=== PATIENT | male | born 1950 | race Caucasian/White ===

== ENCOUNTER 2016-11-15 04:51 | Observation (INO) ==
[2016-11-15] MEDS ORDERED: 0.9 % SODIUM CHLORIDE 1,000 ML IV ONE (05:02)
[2016-11-15] MEDS ORDERED: ONDANSETRON 4 MG/2 ML VIAL IV ONE ×2 (05:02→05:51)
[2016-11-15] MEDS ORDERED: ONDANSETRON 4 MG/2 ML VIAL ONE (05:10)
[2016-11-15] MEDS ORDERED: IPRATROPIUM/ALBUTEROL 3 ML AMPUL.NEB NEB ONE (05:13)
[2016-11-15] MEDS ORDERED: LACTATED RINGERS 1,000 ML IV ONE (05:13)
[2016-11-15] MEDS ORDERED: methylPREDNISolone SOD SUCC 125 MG/2 ML VIAL IV ONE (05:13)
[2016-11-15] MEDS ORDERED: IBUPROFEN 600 MG TABLET PO ONE (05:16)
[2016-11-15] MEDS ORDERED: ACETAMINOPHEN W/CODEINE #3 1 TABLET PO ONE (05:17)
--- NOTE | 2016-11-15 05:19 | Emergency Department Note ---
General Adult HPI - General Chief complaint: Nausea/Vomiting/Diarrhea Stated complaint: Nausea, vomiting, weakness. Time Seen by Provider: 11/15/16 05:12 Source: patient Mode of arrival: wheelchair Limitations: no limitations - History of Present Illness HPI Narrative: Has had a cough for last 4 days. Does have a history of COPD, quit smoking in 2005. Last time he was seen here for similar symptoms. He had pneumonia and ended up needing to be in the hospital. Low-grade fevers last couple days, he has not felt well, generalized body aches associated with some nausea and vomiting, which is mainly triggered by coughing up. Chest feels a little bit tight. He denies any cardiac history. No abdominal pain, recent cholecystectomy several months ago. - Related Data Home Medications Medication Instructions Recorded Confirmed cyanocobalamin (vit B-12) 1,000 1,000 mcg PO QDAY tab 04/16/15 06/24/16 mcg tablet morphine ER 100 mg tablet,extended 100 mg PO BID tab 04/16/15 06/24/16 release oxybutynin chloride ER 15 mg 15 mg PO QDAY tab 04/16/15 06/24/16 tablet,extended release 24 hr saw palm 160 mg-vit E 100 1 tab PO .QD tab 04/16/15 06/24/16 unit-selen 100 bgx-lckq-arlmkw-pygeum tablet gabapentin 300 mg capsule 300 mg PO TID cap 05/10/15 06/24/16 Aspirin 81 mg CHEWED DAILY 01/02/16 06/24/16 Cholecalciferol (Vitamin D3) 2,000 unit PO DAILY 01/02/16 06/24/16 [Vitamin D3] Multivit with Calcium,Iron,Min 1 each PO DAILY 01/02/16 06/24/16 [Maximum Daily Multivitamin] Pioglitazone [Actos] 30 mg PO DAILY 01/02/16 06/24/16 Repaglinide [Prandin] 4 mg PO TIDAC 01/02/16 06/24/16 Spironolactone [Aldactone] 25 mg PO DAILY 01/02/16 06/24/16 Ubidecarenone [Coenzyme Q10] 300 mg PO DAILY 01/02/16 06/24/16 Vits A,C,E/Lutein/Minerals 1 each PO BID 01/02/16 06/24/16 [Healthy Eyes Caplet] insulin glargine 100 unit/mL 32 unit SUB-Q QHS ml 01/23/16 06/24/16 subcutaneous solution Previous Rx's Medication Instructions Recorded tiotropium bromide 18 mcg capsule 1 inh INHALATION QDAY #90 puff 09/10/15 with inhalation device bupropion HCl SR 200 mg 200 mg PO BID 90 Days 10/29/15 tablet,sustained-release Tamsulosin [Flomax] 0.4 mg PO QDAY cap 01/02/16 morphine [Ms Contin] 30 mg PO BID tab.sr.12h 01/02/16 carvedilol 12.5 mg tablet 12.5 mg PO BID 90 Days 01/30/16 ranitidine 300 mg capsule 300 mg PO QHS #90 cap 03/20/16 citalopram 40 mg tablet 40 mg PO QDAY 90 Days 04/23/16 omeprazole 40 mg capsule,delayed 40 mg PO QDAY 90 Days 04/23/16 release atorvastatin 40 mg tablet 40 mg PO QHS 90 Days 05/28/16 ondansetron 4 mg disintegrating 4 mg PO Q8H PRN #60 tab 05/29/16 tablet polyethylene glycol 3350 17 gram 17 g PO BID PRN 10 Days 05/29/16 oral powder packet lisinopril 20 1 tab PO QDAY 90 Days 06/12/16 mg-hydrochlorothiazide 25 mg tablet albuterol sulfate HFA 90 2 puff INHALATION Q4-6HP PRN #1 06/24/16 mcg/actuation aerosol inhaler inhaler budesonide-formoterol HFA 80 2 inh INHALATION BID #10.2 g 06/24/16 mcg-4.5 mcg/actuation aerosol inhaler metformin 1,000 mg tablet 1,000 mg PO BID 90 Days 07/01/16 alcohol swabs See Dose Instructions .ROUTE 08/27/16 .MEDSUPPLY #300 pad blood sugar diagnostic strips See Dose Instructions .ROUTE 08/27/16 .MEDSUPPLY #300 each blood-glucose meter See Dose Instructions .ROUTE 08/27/16 .MEDSUPPLY #1 each lancets See Dose Instructions .ROUTE 08/27/16 .MEDSUPPLY #300 each Allergies Allergy/AdvReac Type Severity Reaction Status Date / Time No Known Drug Allergies Allergy Verified 06/24/16 07:19 Review of Systems All systems ED: reviewed and negative except as stated. Respiratory: Reports: cough, dyspnea Past Medical History - Past Medical History Source: nursing notes reviewed Medical history: Reports: COPD, diabetes, GERD, hyperlipidemia, hypertension, other (hemoptysis. Orthostatic hypotension. Cholecystitis. Urinary retention. Aspiration pneumonia. Crush injury of pelvis. Testosterone deficiency. Small bowel obstruction. Sleep apnea. Schatzki's ring. Neuropathy. Interstitial cystitis. Massive adrenal gland.) Surgical history ED: Reports: cholecystectomy, orthopedic, other Psychiatric history: Reports: anxiety, depression - Social History smoking status: Former smoker Alcohol use: Reports: None Drug use: Reports: none Physical Exam - General Limitations: no limitations General appearance: alert, in distress - Head Head exam: atraumatic, normocephalic, normal inspection - Eye Eye exam: Present: normal appearance, PERRL. Absent: conjunctival injection - ENT ENT exam: normal exam, normal oropharynx - Neck Neck exam: Present: normal inspection, full ROM - Chest Chest inspection: Present: normal inspection, symmetric chest wall rise - Respiratory Respiratory exam: Present: respiratory distress, wheezes, accessory muscle use - Cardiovascular Cardiovascular exam: Present: regular rate, normal rhythm - Abdominal Exam Abdominal exam: Present: soft, normal bowel sounds. Absent: distention, guarding - Extremities Exam Extremities exam: Present: normal inspection, full ROM - Back Exam Back exam: Present: normal inspection. Absent: CVA tenderness (R), CVA tenderness (L) - Neurological Exam Neurological exam: Present: alert, oriented X3, CN II-XII intact - Psychiatric Psychiatric exam: Present: normal affect - Skin Skin exam: Present: warm, dry, intact Course Vital Signs Temperature 99.7 F H 11/15/16 04:52 Pulse Rate 88 11/15/16 04:52 Respiratory Rate 22 11/15/16 04:52 Pulse Oximetry (%) 99 11/15/16 04:52 Temperature 99.7 F H 11/15/16 04:52 Pulse Rate 81 11/15/16 06:45 Respiratory Rate 19 11/15/16 06:04 Blood Pressure 112/60 11/15/16 06:45 Pulse Oximetry (%) 92 11/15/16 06:45 Medical Decision Making - MDM Narrative Medical decision making narrative: Patient does have COPD, in reviewing chest x-rays. They never completely cleared up. In the last year, it does look like pneumonia on the right side, also scar tissue, he may be working on lung cancer. At this point, he will be admitted for COPD exacerbation. Discussed with Dr. Eden - Medical Records Medical records reviewed: Yes I reviewed the patient's medical records. - Lab Data Lab results reviewed: Yes I reviewed the patient's lab results. Result diagrams: 11/15/16 05:22 11/15/16 05:23 Lab Results 11/15/16 11/15/16 Range/Units 05:22 05:23 WBC 10.2 (4.5-11.0) K/mcL RBC 4.85 (4.50-5.90) M/mcL Hgb 13.5 (13.5-16.5) g/dL Hct 41.7 (41.0-55.0) % MCV 85.8 (80.0-100.0) fL MCH 27.8 (26.0-34.0) pg MCHC 32.4 (31.0-36.0) g/dL RDW 14.9 H (11.5-14.5) % Plt Count 259 (140-440) K/mcL MPV 8.2 (7.4-10.4) fL Total Counted 100 Seg Neutrophils % 79 H (38-78) % Band Neutrophils % Not Reportable Lymphocytes % 11 L (15-49) % Monocytes % (Manual) 10 H (1-9) % WBC Morphology Abnorm A (NORMAL) Vacuolated Neuts 1+ A (NONE SEEN) Smudge Cells Few A (NONE SEEN) Platelet Estimate Normal (NORMAL) RBC Morphology Normal (NORMAL) Sodium 137 (133-145) mmol/L Potassium 3.8 (3.3-5.1) mmol/L Chloride 96 (96-108) mmol/L Carbon Dioxide 25 (22-30) mmol/L Anion Gap 16.0 (8-16) BUN 17 (8-23) mg/dl Creatinine 1.0 (0.7-1.2) mg/dl GFR Calculation 79 Glucose 172 H (70-105) mg/dL Calcium 10.2 (8.6-10.4) mg/dl Total Bilirubin 0.4 (0.0-1.0) mg/dL AST 15 (0-37) U/l ALT 16 (0-40) U/l Alkaline Phosphatase 106 (39-117) U/L C-Reactive Protein 0.4 (0.0-0.8) mg/dl Total Protein 7.9 (5.9-8.4) gm/dL Albumin 4.4 (3.2-5.2) gm/dL Globulin 3.5 (2.2-3.7) gm/dL Albumin/Globulin Ratio 1.3 (1.0-2.3) Disposition Clinical Impression: COPD exacerbation Referrals: Cesar Llanos DO [Primary Care Provider] -
[2016-11-15 06:17] LABS: Mean Cell Volume 85.8 fL (80.0-100.0); Mean Corpuscular HGB Conc 32.4 g/dL (31.0-36.0); Mean Corpuscular Hemoglobin 27.8 pg (26.0-34.0); Platelet Count 259 K/mcL (140-440); RBC 4.85 M/mcL (4.50-5.90); Red Cell Distribution Width 14.9 % (11.5-14.5)
[2016-11-15 06:33] LABS: ALT/SGPT 16 U/l (0-40); Albumin 4.4 gm/dL (3.2-5.2); Albumin/Globulin Ratio 1.3 (1.0-2.3); Alkaline Phosphatase 106 U/L (39-117); Blood Urea Nitrogen 17 mg/dl (8-23); C-Reactive Protein 0.4 mg/dl (0.0-0.8)
[2016-11-15 06:46] LABS: Lymphocytes % 11 % (15-49); Monocytes % (Manual) 10 % (1-9); Platelet Estimate NORMAL (NORMAL); RBC Morphology NORMAL (NORMAL); Segmented Neutrophils % 79 % (38-78); Smudge Cells FEW (NONE SEEN)
[2016-11-15] MEDS ORDERED: cefTRIAXone 1 GM in DEXTROSE 5% IN WATER 50 ML IV ONE (06:57)
[2016-11-15] MEDS ORDERED: AZITHROMYCIN 500 MG in DEXTROSE 5% IN WATER 250 ML IV SCH (07:00)
--- NOTE | 2016-11-15 07:40 | XRay Report ---
CLINICAL INFORMATION: Dyspnea - follow-up right lung infiltrate COMPARISON: 09/10/2016. FINDINGS: Heart is mildly enlarged, but unchanged. Mediastinum and pulmonary vessels are normal. Diffuse right lung infiltrate shows moderate improved aeration compared to the study five days ago. There are still patchy alveolar interstitial residual disease throughout the lung. No effusion. Left lung is well expanded and clear. Mild old compression fractures mid thoracic spine seen - as before IMPRESSION: Moderate improved aeration in diffuse right lung infiltrate since the study five days ago Interpreted and Authenticated by: Jeremi Alonzo 11/15/16
--- NOTE | 2016-11-15 08:55 | Internal Med History&Physical ---
Medical - H&P: HPI Patient information: Note initiated : 11/15/16 at 8:52 am Service Date, if different from initiated Date: [] Patient: Luis De Leon 65 y/o M admitted on for Nausea, vomiting, weakness.. Chief Complaint: [] History of present illness: Mr. De Leon is a 65 year old male who is well known to me in the past, presented to the ER today with complaints not feeling well over the last 4-5 days The patient has been having nausea associated with vomiting over the last few days. He has been feeling sick to his stomach and has reflux like symptoms. His nausea and vomiting subsided, but since yesterday he was having some shortness of breath and cough, In the past the patient has had Pneumonia quite quickly and since he was not feeling well his decided to bring him to the ER. As per the ER physician the patient was hypoxic on presentation, and was wheezing on presentation. His X ray suggestive of right pna, he was placed on IV ABX, IV fljids, Blood cultures / sputum cultures ordered and patient presented to the hospitalist for admission. - Constitutional Constitutional: Present: weakness. Absent: chills, fever(s) - EENT Eyes: Absent: blurry vision, change in vision Nose, mouth and throat: Absent: abnormal hearing, headache(s) - Cardiovascular Cardiovascular: Absent: chest pain, chest pain at rest, palpatations - Respiratory Respiratory: Present: cough, dyspnea on exertion, wheezing. Absent: excessive phlegm production - Gastrointestinal Gastrointestinal: Present: belching, dyspepsia, nausea, vomiting. Absent: abdominal pain - Genitourinary Genitourinary: Absent: nocturia, urinary frequency, urinary hesitancy - Musculoskeletal Musculoskeletal: Present: arthralgias, back pain - Integumentary Integumentary: Absent: wounds, jaundice - Neurological Neurological: Present: weakness. Absent: focal weakness, syncope, vertigo - Psychiatric Psychiatric: Absent: behavioral changes, confusion - Endocrine Endocrine: Absent: polydipsia, polyphagia, polyuria - Hematologic/Lymphatic Hematologic/Lymphatic: Absent: easy bleeding, easy bruising - Allergic/Immunologic Allergic/Immunologic: Absent: uticaria, wheezing Medical - H&P: PMH Medical history: Medical History COPD exacerbation (Acute) Laceration (Acute) Parotid gland pain (Acute) Pneumonia (Acute) Abnormal chest xray (Chronic) Acute bronchitis (Chronic) Acute cholecystitis with chronic cholecystitis (Chronic) Anemia (Chronic) Anxiety (Chronic) Aspiration pneumonia due to food (regurgitated) (Chronic) Bronchitis (Chronic) COPD (chronic obstructive pulmonary disease) (Chronic) COPD exacerbation (Chronic) COPD with exacerbation (Chronic) Cholecystitis (Chronic) Chronic back pain (Chronic) Chronic pain due to trauma (Chronic) Cough (Chronic) Crushing injury of pelvis (Chronic) Degenerative joint disease (Chronic) Depressive disorder (Chronic) Diabetes mellitus (Chronic) Dizziness (Chronic) Esophageal reflux (Chronic) Fatigue (Chronic) Gallstones and inflammation of gallbladder without obstruction (Chronic) Hemoptysis (Chronic) Hyperlipidemia (Chronic) Hypertension, essential (Chronic) Impetigo (Chronic) Interstitial cystitis (Chronic) Left pulmonary infiltrate on CXR (Chronic) Mass of adrenal gland (Chronic) Nausea and vomiting (Chronic) Neuropathy (Chronic) Orthostatic hypotension (Chronic) Overweight (Chronic) Painful respiration (Chronic) Post-op pain (Chronic) Postural lightheadedness (Chronic) Pulmonary infiltrate (Chronic) Radicular pain of sacrum (Chronic) Rhinitis (Chronic) Right pulmonary infiltrate on CXR (Chronic) Right upper quadrant abdominal pain (Chronic) Schatzki's ring (Chronic) Sexual dysfunction (Chronic) Sleep apnea (Chronic) Spondylolysis of lumbar region (Chronic) Testicular pain (Chronic) Testosterone deficiency (Chronic) Uncontrolled diabetes mellitus (Chronic) Upper respiratory infection (Chronic) Urinary frequency (Chronic) Urinary incontinence (Chronic) Urinary retention with incomplete bladder emptying (Chronic) Urinary retention with incomplete bladder emptying (Chronic) Wrist pain (Chronic) Abdominal pain (Resolved) History of pneumonia (Resolved) Leukocytosis (Resolved) Small bowel obstruction (Resolved) Surgical history: Past Surgical History Esophageal dilatation (Chronic) History of colonoscopy (Chronic) History of esophagogastroduodenoscopy (Chronic) S/P cholecystectomy (Chronic 01/02/16) History of shoulder surgery (Inactive) Open pelvic fracture (Inactive) Family history: reviewed and not pertinent Social history: lives with no etoh ex smoker 40 pack yr history no substance abuse Medical - H&P: Meds Home Medications Medication Instructions Recorded Confirmed Type cyanocobalamin (vit B-12) 1,000 1,000 mcg PO QDAY tab 04/16/15 06/24/16 History mcg tablet morphine ER 100 mg tablet,extended 100 mg PO BID tab 04/16/15 06/24/16 History release oxybutynin chloride ER 15 mg 15 mg PO QDAY tab 04/16/15 06/24/16 History tablet,extended release 24 hr saw palm 160 mg-vit E 100 1 tab PO .QD tab 04/16/15 06/24/16 History unit-selen 100 dax-kopu-ehgiwh-pygeum tablet gabapentin 300 mg capsule 300 mg PO TID cap 05/10/15 06/24/16 History Aspirin 81 mg CHEWED DAILY 01/02/16 06/24/16 History Cholecalciferol (Vitamin D3) 2,000 unit PO DAILY 01/02/16 06/24/16 History [Vitamin D3] Multivit with Calcium,Iron,Min 1 each PO DAILY 01/02/16 06/24/16 History [Maximum Daily Multivitamin] Pioglitazone [Actos] 30 mg PO DAILY 01/02/16 06/24/16 History Repaglinide [Prandin] 4 mg PO TIDAC 01/02/16 06/24/16 History Spironolactone [Aldactone] 25 mg PO DAILY 01/02/16 06/24/16 History Ubidecarenone [Coenzyme Q10] 300 mg PO DAILY 01/02/16 06/24/16 History Vits A,C,E/Lutein/Minerals 1 each PO BID 01/02/16 06/24/16 History [Healthy Eyes Caplet] insulin glargine 100 unit/mL 32 unit SUB-Q QHS ml 01/23/16 06/24/16 History subcutaneous solution Allergies Allergy/AdvReac Type Severity Reaction Status Date / Time No Known Drug Allergies Allergy Verified 06/24/16 07:19 Medical - H&P: Exam - Constitutional Vitals: Temp Pulse Resp BP Pulse Ox 99.7 F H 81 19 112/60 92 11/15/16 04:52 11/15/16 06:45 11/15/16 06:04 11/15/16 06:45 11/15/16 06:45 General appearance: cooperative, no acute distress - Head Head exam: Present: atraumatic, normal inspection, normocephalic - Eye Eye exam: Present: PERRL. Absent: periorbital swelling, scleral icterus - ENT ENT exam: Present: mucous membranes moist - Neck Neck exam: Present: normal inspection - Respiratory Respiratory exam: Present: normal respiratory exam. Absent: accessory muscle use, rhonchi, wheezes - Cardiovascular Cardiovascular exam: Present: normal rate and rhythm, +S1, +S2 - GI/Abdominal GI/Abdominal exam: Present: normal bowel sounds, soft. Absent: guarding, rebound, rigid, tenderness - Extremities Exam Extremities exam: Absent: pedal edema, tenderness - Back Exam Back exam: Present: normal inspection. Absent: tenderness - Neurological Exam Neurological exam: Present: alert, CN II-XII intact, oriented X3. Absent: motor sensory deficit - Psychiatric Psychiatric exam: Absent: agitated, anxious - Skin Skin exam: Absent: rash, urticaria Medical - H&P: Reslt - Labs CBC & Chem 7: 11/15/16 05:22 11/15/16 05:23 Labs: Short CBC 11/15/16 Range/Units 05:22 WBC 10.2 (4.5-11.0) K/mcL Hgb 13.5 (13.5-16.5) g/dL Hct 41.7 (41.0-55.0) % Plt Count 259 (140-440) K/mcL BMP 11/15/16 05:23 Sodium 137 Potassium 3.8 Chloride 96 Carbon Dioxide 25 BUN 17 Creatinine 1.0 Glucose 172 H Calcium 10.2 Liver Function 11/15/16 Range/Units 05:23 Total Bilirubin 0.4 (0.0-1.0) mg/dL AST 15 (0-37) U/l ALT 16 (0-40) U/l Alkaline Phosphatase 106 (39-117) U/L Albumin 4.4 (3.2-5.2) gm/dL Medical - H&P: A/P (1) Acute respiratory failure with hypoxia Current visit: Yes Status: Acute (2) COPD exacerbation Current visit: Yes Status: Acute (3) Pneumonia Current visit: No Status: Acute (4) Nausea and vomiting Current visit: No Status: Chronic - Narrative A/P Narrative: The patient with h/o copd, DM, recurrent nausea and vomiting presents to the ER with shortness of breath, cough, increased oxygen requirement, wheezing and infiltrate on the x ray. His WBC is normal, low suspicion for sepsis COPD- Will be treated with duonebs, PO prendnisone, zithromax Pneumonia- Await culture, but given history of relux, recurrent vomiting over the last few days, this is likely aspiration pneumonitis, Will start the patient on po augmentin for same. Recurrent Nausea and Vomiting- This has been an ongoing issue for the patient, he is s/o cholecystetomy last year, He has been seen by GI, s/o EGD and Gastric emptying study, which was negative, the though process was that this is due to narcotic bowel, and his use of opiate pain medication. The Pain clinic seems to have tried to wean him off his high doses of narcotics, but based on todays interaction it seems they have been unsuccessful. Patient is on prn ondansetron , and may be he will benefit from Phenergan. Presently he has no nausea or vomiting, he is supposed to be on PPI Will get X ray abdomen to r/o SBO which he has had in the past. DM- sliding scale, Will resume rest of his home medications once confirmed DVT- Hep sq Diet, Diabetic diet Activity prn,
[2016-11-15] MEDS ORDERED: NALOXONE HCL 0.4 MG/ML VIAL IV PRN ×2 (09:05→09:39)
[2016-11-15] MEDS ORDERED: PANTOPRAZOLE 40 MG VIAL IV SCH (09:05)
[2016-11-15] MEDS ORDERED: ACETAMINOPHEN 325 MG TABLET PO PRN ×2 (09:05→09:39)
[2016-11-15] MEDS ORDERED: PROMETHAZINE 25 MG/ML VIAL IV PRN ×2 (09:05→09:39)
[2016-11-15] MEDS ORDERED: MAGNESIUM HYDROXIDE 30 ML ORAL.SUSP PO PRN ×2 (09:05→09:39)
[2016-11-15] MEDS ORDERED: DEXTROSE 50% 50 ML VIAL IV PRN ×2 (09:05→09:39)
[2016-11-15] MEDS ORDERED: HEPARIN 5,000 UNIT/ML VIAL SQ SCH (09:05)
[2016-11-15] MEDS ORDERED: FLEETS ADULT ENEMA PR PRN ×2 (09:05→09:39)
[2016-11-15] MEDS ORDERED: AZITHROMYCIN 250 MG TABLET PO SCH (09:05)
--- NOTE | 2016-11-15 10:22 | XRay Report ---
CLINICAL INFORMATION: Nausea and vomiting COMPARISON: 05/29/2016 FINDINGS: Stool gas pattern is unremarkable. No free air, soft tissue mass, pathologic calcification or organomegaly. Spinal cord electrode stability white matter artifact are in stable satisfactory position no evidence of wire breakage IMPRESSION: Negative Interpreted and Authenticated by: Jeremi Alonzo 11/15/16
[2016-11-15] MEDS ORDERED: INSULIN LISPRO 1 UNIT/0.01 ML UNIT SQ SCH (11:30)
[2016-11-15] MEDS ORDERED: HYDROmorphone 2 MG/ML SYRINGE IV PRN (11:58)
[2016-11-15] MEDS ORDERED: morphine 30 MG TAB.SR.12H PO SCH (12:00)
[2016-11-15] MEDS: INSULIN LISPRO 1 UNIT/0.01 ML UNIT SQ SCH ×3 (12:15→20:54)
[2016-11-15] MEDS ORDERED: morphine 30 MG TAB.SR.12H PO ONE (12:52)
[2016-11-15] MEDS ORDERED: IPRATROPIUM/ALBUTEROL 3 ML AMPUL.NEB NEB SCH (13:00)
[2016-11-15] MEDS: IPRATROPIUM/ALBUTEROL 3 ML AMPUL.NEB NEB SCH ×2 (13:44→19:38)
[2016-11-15] MEDS ORDERED: 0.9 % SODIUM CHLORIDE 10 ML SYRINGE IV SCH (14:00)
[2016-11-15] MEDS: GABAPENTIN 300 MG CAPSULE PO SCH ×2 (15:29→20:53)
[2016-11-15] MEDS: 0.9 % SODIUM CHLORIDE 10 ML SYRINGE IV SCH ×2 (15:30→22:40)
[2016-11-15] MEDS: CARVEDILOL 12.5 MG TABLET PO SCH (17:04)
[2016-11-15] MEDS: AMOXICILLIN/POTASSIUM CLAV 875 MG TABLET PO SCH (17:04)
[2016-11-15] MEDS ORDERED: AMOXICILLIN/POTASSIUM CLAV 875 MG TABLET PO SCH (17:30)
[2016-11-15] MEDS: buPROPion 100 MG TAB.SR.12H PO SCH (20:53)
[2016-11-15] MEDS: morphine 30 MG TAB.SR.12H PO SCH (20:53)
[2016-11-15] MEDS: HEPARIN 5,000 UNIT/ML VIAL SQ SCH (20:54)
[2016-11-15] MEDS ORDERED: SENNOSIDES 1 TABLET PO SCH ×2 (21:00)
[2016-11-15] MEDS ORDERED: ATORVASTATIN 20 MG TABLET PO SCH (21:00)
[2016-11-15] MEDS ORDERED: VIT A,C & E/LUTEIN/MINERALS TABLET PO SCH (21:00)
[2016-11-15] MEDS ORDERED: INSULIN GLARGINE, HUMAN 1 UNIT/0.01 ML SQ SCH (21:00)
[2016-11-15] MEDS ORDERED: morphine 100 MG TABLET.ER PO SCH ×2 (21:00)
[2016-11-16] MEDS: IPRATROPIUM/ALBUTEROL 3 ML AMPUL.NEB NEB SCH ×2 (01:45→08:13)
[2016-11-16] MEDS: 0.9 % SODIUM CHLORIDE 10 ML SYRINGE IV SCH (04:50)
[2016-11-16 05:03] LABS: Mean Cell Volume 85.7 fL (80.0-100.0); Mean Corpuscular HGB Conc 32.9 g/dL (31.0-36.0); Mean Corpuscular Hemoglobin 28.1 pg (26.0-34.0); Platelet Count 229 K/mcL (140-440); RBC 4.22 M/mcL (4.50-5.90)
[2016-11-16 05:22] LABS: ALT/SGPT 14 U/l (0-40); Albumin 3.6 gm/dL (3.2-5.2); Albumin/Globulin Ratio 1.1 (1.0-2.3); Alkaline Phosphatase 81 U/L (39-117); Bilirubin,Direct < 0.2 mg/dL (0.0-0.3); Blood Urea Nitrogen 16 mg/dl (8-23); Gamma Glutamyl Transpeptidase 12 U/L (8-61); Magnesium 1.5 mg/dL (1.6-2.5); Phosphorous 3.6 mg/dL (2.7-4.5); Uric Acid 6.6 mg/dL (2.5-8.0)
[2016-11-16 06:33] LABS: Anisocytosis 1+ (NONE SEEN); Eosinophils % (Manual) 1 % (0-7); Lymphocytes % 12 % (15-49); Monocytes % (Manual) 16 % (1-9); Platelet Estimate NORMAL (NORMAL); RBC Morphology ABNORM (NORMAL); Segmented Neutrophils % 71 % (38-78)
[2016-11-16] MEDS: morphine 30 MG TAB.SR.12H PO SCH (07:10)
[2016-11-16] MEDS: INSULIN LISPRO 1 UNIT/0.01 ML UNIT SQ SCH (07:28)
[2016-11-16] MEDS ORDERED: PANTOPRAZOLE 40 MG VIAL IV SCH (07:30)
[2016-11-16] MEDS ORDERED: predniSONE 20 MG TABLET PO SCH ×2 (08:00)
[2016-11-16] MEDS ORDERED: MAGNESIUM SULFATE 2 GM/50 ML BAG IV ONE (08:10)
[2016-11-16] MEDS: AMOXICILLIN/POTASSIUM CLAV 875 MG TABLET PO SCH (08:17)
[2016-11-16] MEDS: GABAPENTIN 300 MG CAPSULE PO SCH (08:18)
[2016-11-16] MEDS: buPROPion 100 MG TAB.SR.12H PO SCH (08:19)
[2016-11-16] MEDS: CARVEDILOL 12.5 MG TABLET PO SCH (08:19)
[2016-11-16] MEDS ORDERED: OXYBUTYNIN CHLORIDE 5 MG TAB.XL.24H PO SCH (09:00)
[2016-11-16] MEDS ORDERED: MULTIVIT,THER IRON,CA,FA & MIN 1 TABLET PO SCH (09:00)
[2016-11-16] MEDS ORDERED: PIOGLITAZONE 15 MG TABLET PO SCH (09:00)
[2016-11-16] MEDS ORDERED: HYDROCHLOROTHIAZIDE 25 MG TABLET PO SCH (09:00)
[2016-11-16] MEDS ORDERED: CYANOCOBALAMIN (VITAMIN B-12) 500 MCG TABLET PO SCH (09:00)
[2016-11-16] MEDS ORDERED: SPIRONOLACTONE 25 MG TABLET PO SCH (09:00)
[2016-11-16] MEDS ORDERED: VITAMIN D3 1,000 UNIT TABLET PO SCH (09:00)
[2016-11-16] MEDS ORDERED: ASPIRIN 81 MG TAB.CHEW CHEWED SCH (09:00)
[2016-11-16] MEDS ORDERED: LISINOPRIL 20 MG TABLET PO SCH (09:00)
[2016-11-16] MEDS ORDERED: AZITHROMYCIN 250 MG TABLET PO SCH (09:00)
[2016-11-16] MEDS ORDERED: CITALOPRAM 20 MG TABLET PO SCH (09:00)
[2016-11-16] MEDS: HEPARIN 5,000 UNIT/ML VIAL SQ SCH (09:06)
--- NOTE | 2016-11-16 09:45 | Discharge Summary ---
Medical - DS: Prov Patient information: Note initiated : 11/16/16 at 9:41 am Service Date, if different from initiated Date: [] Patient: Luis De Leon 65 y/o M admitted on 11/15/16 for Nausea, vomiting, weakness.. Chief Complaint: [] Date of admission: 11/15/16 09:38 Discharge date: 11/16/16 Primary care physician: [f_Reg Prim Care Provider] Admitting clinician: Susan Eden Discharging clinician: Susan Eden Medical - DS: Meds - Discharge Medications Prescriptions: Amoxicillin/Potassium Clav [Augmentin] 875 mg PO BIDCC #12 tablet Promethazine [Phenergan] 25 mg PO Q4-6HP PRN #30 tablet PRN Reason: Nausea And Vomiting predniSONE [Deltasone] 20 mg PO DAILY #8 tablet Active and Home Medications: Home Medications Alcohol Antiseptic Pads [Alcohol Prep Pads] 0 towelett .ROUTE .MEDSUPPLY [History Confirmed 11/15/16 Last Taken Unknown] Blood Sugar Diagnostic [Contour] 0 strip .ROUTE .MEDSUPPLY 11/15/16 [History Confirmed 11/15/16 Last Taken Unknown] Blood-Glucose Meter [Contour] 0 dose .ROUTE .MEDSUPPLY 11/15/16 [History Confirmed 11/15/16 Last Taken Unknown] Lancets 0 insert .ROUTE .MEDSUPPLY 11/15/16 [History Confirmed 11/15/16 Last Taken 11/14/16 08:00] morphine SULFATE [Morphine Sulfate ER] 20 mg PO 11/15/16 [History Last Taken 19:00] Active Medications Acetaminophen (Tylenol) 650 mg PO Q6HP PRN PRN Reason: PAIN/FEVER > 101 Last Admin: 11/15/16 11:55 Dose: 650 mg Albuterol/Ipratropium (Duoneb) 3 ml NEB Q6HRT [facility] [place] Last Admin: 11/16/16 08:13 Dose: Not Given Amoxicillin/Clavulanate Potassium (Augmentin) 875 mg PO BIDCC [facility] [place] Last Admin: 11/16/16 08:17 Dose: 875 mg Aspirin (Aspirin) 81 mg CHEWED DAILY [facility] [place] Last Admin: 11/16/16 08:19 Dose: 81 mg Atorvastatin Calcium (Lipitor) 40 mg PO HS [facility] [place] Last Admin: 11/15/16 20:53 Dose: 40 mg Azithromycin (Zithromax) 250 mg PO DAILY [facility] [place] Stop: 11/18/16 09:01 Last Admin: 11/16/16 08:19 Dose: 250 mg Bupropion HCl (Wellbutrin Sr) 200 mg PO BID [facility] [place] Last Admin: 11/16/16 08:19 Dose: 200 mg Carvedilol (Coreg) 12.5 mg PO BIDCC [facility] [place] Last Admin: 11/16/16 08:19 Dose: 12.5 mg Citalopram Hydrobromide (Celexa) 40 mg PO DAILY [facility] [place] Last Admin: 11/16/16 08:18 Dose: 40 mg Cyanocobalamin (Vitamin B-12) 1,000 mcg PO DAILY [facility] [place] Last Admin: 11/16/16 08:19 Dose: 1,000 mcg Dextrose (Dextrose 50%) 0 ml IV UD PRN PRN Reason: Hypoglycemia Diagnostic Test (Pha) (Accu-Chek) 1 each FS ACHS [facility] [place] Last Admin: 11/16/16 07:27 Dose: 1 each Gabapentin (Neurontin) 300 mg PO TID [facility] [place] Last Admin: 11/16/16 08:18 Dose: 300 mg Heparin Sodium (Porcine) (Heparin) 5,000 unit SQ Q12 [facility] [place] Last Admin: 11/16/16 09:06 Dose: 5,000 unit Hydrochlorothiazide (Oretic) 25 mg PO DAILY [facility] [place] Last Admin: 11/16/16 08:18 Dose: 25 mg Hydromorphone HCl (Dilaudid) 1 mg IV Q4-6HP PRN PRN Reason: Pain Insulin Glargine (Lantus) 32 unit SQ QHS [facility] [place] Last Admin: 11/15/16 20:52 Dose: 32 unit Insulin Human Lispro (Humalog) 0 unit SQ [facility] PRN Reason: Protocol Last Admin: 11/16/16 07:28 Dose: Not Given Iron Carb/Multivit/Upshur/Folic Acid (Multivitamin W/Minerals) 1 tab PO DAILY [facility] [place] Last Admin: 11/16/16 08:19 Dose: 1 tab Lisinopril (Zestril) 20 mg PO DAILY [facility] [place] Last Admin: 11/16/16 08:18 Dose: 20 mg Magnesium Hydroxide (Milk Of Magnesia) 30 ml PO DAILYP PRN PRN Reason: Constipation Morphine Sulfate (Ms Contin) 120 mg PO BID [facility] [place] Last Admin: 11/16/16 07:10 Dose: 120 mg Multivitamins/Minerals (Ocuvite) 1 tab PO BID [facility] [place] Last Admin: 11/15/16 23:35 Dose: 1 tab Naloxone HCl (Narcan) 0.1 mg IV Q2MIN PRN PRN Reason: Opiate Reversal Oxybutynin Chloride (Ditropan Xl) 15 mg PO DAILY [facility] [place] Last Admin: 11/16/16 08:18 Dose: 15 mg Pantoprazole [facility]ix) [facility] Last Admin: 11/16/16 07:41 Dose: Not Given Pioglitazone HCl (Actos) 30 mg PO DAILY [facility] [place] Prednisone (Prednisone) 40 mg PO [facility] Stop: 11/21/16 07:59 Last Admin: 11/16/16 08:19 Dose: 40 mg Promethazine HCl (Phenergan) 12.5 mg IV Q6HP PRN PRN Reason: Nausea And Vomiting Senna (Senokot) 2 tab PO HS [facility] [place] Last Admin: 11/15/16 20:53 Dose: 2 tab Sodium Biphosphate/Sodium Phosphate (Fleets Adult) 1 dose MO Q3-4DAYS PRN PRN Reason: Constipation Sodium Chloride (Saline Flush) 10 ml IV Q8 [facility] [place] Last Admin: 11/16/16 04:50 Dose: 10 ml Spironolactone (Aldactone) 25 mg PO DAILY [facility] [place] Last Admin: 11/16/16 08:19 Dose: 25 mg Vitamin D (Vitamin D3) 2,000 unit PO DAILY [facility] [place] Last Admin: 11/16/16 08:19 Dose: 2,000 unit Medical - DS: Hosp Hospital course: Mr. 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 He was admitted to the hospital with diagnosis of aspiration pneumonia, copd exacerbation. Aspiration pneumonia- patient was treated with po augmentin, and he responded to the treatment very well, he was off oxygen on d2 of hospital stay, ambulating well, and back to his baseline. He will complete a 7 day course of antibiotic. COPD exacerbation- Treated with steroids and duonebs, patient responded well, off oxygen and ambulating adlib. The patient has no sob / wheezing on the day of discharge, he will take prendisone for additional 4 days. He will resume his home inhalers. Nausea/ Vomiting: This is a persistant and chr issue for the patient ,he has been seen by GI in the past, EGD/ NG gastric emptying study is negative, he is s /p cholecystetomy. 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 I have advised patient to use phenergan prn for nausea and vomiting, and to use laxatives to ensure regular bowel movements. The patient and his verbalized understanding. The rest of the patients condition remained stable, no changes to his home medications have been done except as listed above. Discharge diagnosis: Pnemonia/ Nausea vomting/ COPD exacerbation - Time Spent with Patient Total time spent providing and/or coordinating discharge services: Less than 30 minutes Medical - DS: Exam - Constitutional Vitals: Vital Signs Temp Pulse Pulse Resp BP Pulse Ox 11/16/16 06:47 98.5 F 72 16 159/73 95 11/16/16 04:00 98.5 F 65 20 155/74 99 11/16/16 00:00 98.2 F 64 16 138/70 94 11/15/16 20:00 98.2 F 67 18 176/82 92 11/15/16 19:43 68 16 11/15/16 19:39 2 L 11/15/16 19:38 98 11/15/16 17:04 97.4 F L 70 12 153/69 97 11/15/16 13:49 72 16 11/15/16 13:45 98 11/15/16 11:52 74 16 136/70 96 11/15/16 10:28 16 11/15/16 10:27 16 11/15/16 10:10 95 Intake and Output 11/15/16 11/16/16 11/16/16 21:59 05:59 13:59 Intake Total 120 / 120 400 / 400 460 / 460 Output Total 800 / 800 300 / 300 Balance 120 / 120 -400 / -400 160 / 160 Intake: Oral 120 / 120 400 / 400 460 / 460 Output: Void Amount 800 / 800 300 / 300 Other: Meal Dinner Breakfast Percent of Meal Consumed 50% 100% Feeding Ability Independent # Voids 2 # Bowel Movements 1 Weight 228 lb General appearance: average body habitus, cooperative, no acute distress - Head Head exam: Present: atraumatic, normal inspection - ENT ENT exam: Present: mucous membranes moist - Neck Neck exam: Present: normal inspection - Respiratory Respiratory exam: Present: normal respiratory exam. Absent: accessory muscle use, decreased breath sounds, prolonged expiratory phase, respiratory distress, rhonchi, stridor, wheezes - Cardiovascular Cardiovascular exam: Present: normal rate and rhythm, +S1, +S2 - GI/Abdominal GI/Abdominal exam: Present: normal bowel sounds, soft - Neurological Exam Neurological exam: Present: alert, CN II-XII intact, oriented X3. Absent: motor sensory deficit Medical - DS: Data Labs on day of discharge: Labs from last 24 hours 11/16/16 11/16/16 04:00 04:00 WBC 7.8 RBC 4.22 L Hgb 11.9 L Hct 36.1 L MCV 85.7 MCH 28.1 MCHC 32.9 RDW 15.0 H Plt Count 229 MPV 7.9 Total Counted 100 Seg Neutrophils % 71 Band Neutrophils % Not Reportable Lymphocytes % 12 L Monocytes % (Manual) 16 H Eosinophils % (Manual) 1 Platelet Estimate Normal RBC Morphology Abnorm A Anisocytosis 1+ A RBC Fragments Few A Sodium 137 Potassium 3.8 Chloride 98 Carbon Dioxide 31 H Anion Gap 8.0 BUN 16 Creatinine 1.1 GFR Calculation 70 Glucose 106 H Uric Acid 6.6 Calcium 8.7 Phosphorus 3.6 Magnesium 1.5 L Total Bilirubin 0.2 Direct Bilirubin < 0.2 GGT 12 AST 14 ALT 14 Alkaline Phosphatase 81 Lactate Dehydrogenase 136 Total Protein 6.8 Albumin 3.6 Globulin 3.2 Albumin/Globulin Ratio 1.1 Triglycerides 115 Medical - DS: A/P - Patient/Caregiver Discharge Instructions Activity: increase activity as tolerated Diet: Cardiac - Problem Maintenance (1) Acute respiratory failure with hypoxia Status: Acute (2) COPD exacerbation Status: Acute (3) Pneumonia Status: Acute (4) Nausea and vomiting Status: Chronic - Follow up Plan Disposition: Home, Self-Care Prognosis: Good Rehab Potential: Good I certify that the patient requires SNF services: No Overall status at discharge: patient is progressing back to baseline Medical - DS: Qual - VTE Deep Vein Thrombosis/Pulmonary Embolism Present on Admission: No
== END 2016-11-16 11:25 | disposition home or self-care (01) ==
LOC: MEDSUR 04:51 → ED 04:51 → MEDSUR 09:47
PROVIDERS: ADMIT Internal Medicine; ATTEND Internal Medicine

== ENCOUNTER 2017-03-21 09:45 | Inpatient (IN) ==
[2017-03-21] MEDS ORDERED: 0.9 % SODIUM CHLORIDE 1,000 ML IV ONE ×2 (10:15→11:34)
[2017-03-21] MEDS ORDERED: ACETAMINOPHEN 325 MG TABLET PO ONE (10:39)
[2017-03-21] MEDS ORDERED: PIPERACILLIN SODIUM/TAZOBACTAM 3.375 GM in DEXTROSE 5% IN WATER 50 ML IV SCH (10:45)
[2017-03-21 11:04] LABS: Basophils # (Auto) 0.1 K/mcL (0.0-0.3); Basophils % (Auto) 0.4 % (0.0-2.0); Eosinophils # (Auto) 0.2 K/mcL (0.0-0.7); Eosinophils % (Auto) 1.7 % (0.0-7.0); Granulocytes % (Auto) 77.4 % (38.0-78.0); Lymphocytes # (Auto) 2.2 K/mcL (1.5-4.8); Lymphocytes % (Auto) 15.7 % (15.5-49.0); Mean Cell Volume 85.5 fL (80.0-100.0); Mean Corpuscular HGB Conc 32.5 g/dL (31.0-36.0); Mean Corpuscular Hemoglobin 27.8 pg (26.0-34.0); Monocytes # (Auto) 0.7 K/mcL (0.1-0.9); Monocytes % (Auto) 4.8 % (1.0-12.0); Platelet Count 319 K/mcL (140-440); RBC 4.98 M/mcL (4.50-5.90); Red Cell Distribution Width 14.6 % (11.5-14.5)
--- NOTE | 2017-03-21 11:10 | XRay Report ---
CLINICAL INFORMATION: Dyspnea COMPARISON: 11/15/2016 FINDINGS: The heart is mildly enlarged, but unchanged. Mediastinum and pulmonary vessels are normal. Moderate mixed interstitial/alveolar airspace disease in the right middle, upper and lower lobe show slight progression particularly in the right lower lobe. This suggests acute infiltrate superimposed upon chronic fibrosis. Small infiltrate has developed in the left perihilar region which is new. Small right pleural effusion noted. IMPRESSION: Moderate chronic airspace disease throughout the right lung which is predominantly fibrotic, but there does appear to be superimposed infiltrate developing in the right lower lobe Interpreted and Authenticated by: Jeremi Alonzo 03/21/17
[2017-03-21] MEDS ORDERED: LACTATED RINGERS 1,000 ML IV ONE (11:29)
[2017-03-21 11:30] LABS: ALT/SGPT 16 U/l (0-40); Albumin 4.1 gm/dL (3.2-5.2); Albumin/Globulin Ratio 1.2 (1.0-2.3); Alkaline Phosphatase 103 U/L (39-117); Blood Urea Nitrogen 34 mg/dl (8-23); Lipase 35 U/L (7-60); Magnesium 1.4 mg/dL (1.6-2.5); proBNP < 50.0 pg/ml (0-125)
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
--- NOTE | 2017-03-21 12:31 | XRay Report ---
CLINICAL INFORMATION: Pain - trauma COMPARISON: None. FINDINGS: Moderate patellofemoral and mild medial tibiofemoral degenerative change appreciated. There is no fracture identified. Soft tissues are normal. IMPRESSION: Degenerative change - no fracture Interpreted and Authenticated by: Jeremi Alonzo 03/21/17
[2017-03-21] MEDS ORDERED: MAGNESIUM SULFATE 2 GM/50 ML BAG IV ONE (12:46)
--- NOTE | 2017-03-21 13:11 | Internal Med History&Physical ---
Medical - H&P: HPI Patient information: Note initiated : 03/21/17 at 1:03 pm Service Date, if different from initiated Date: [] Patient: Luis De Leon a 66 y/o M admitted on for I think I have Pneumonia again. Chief Complaint: [] History of present illness: Mr. De Leon is a 66 year old male well known to me from previous admission and being his previous out patient provider. The patient presents to the hospital with his today with complaints of not feeling well x 1 day; The pt was doing well till last night where he was at a ball game, when he woke up this am he was not feeling well, he had fever associated with shortness of breath on activity, cough with whitish yellow sputum, and malaise. he has had several presentations in the past with similar presentations and has been diagnosed with PNA. The patient denies any sick contacts. He had one episode of vomiting this AM, but vomiting was after the fever started ,he has some nausea. No blood reported in vomitus. He had chr contipation due to his chr use of narcotics for back pain. In the ER he was noted to be febrile, Elevated wbc on labs, CXR suggestive of PNA< lacate at upper normal limit., He was therefore admitted to the hospital for management of sepsis and pneumonia. - Constitutional Constitutional: Present: chills, fever(s), malaise, weakness - EENT Eyes: Absent: change in vision, loss of vision Nose, mouth and throat: Absent: disequilibrium, dizziness - Cardiovascular Cardiovascular: Absent: chest pain, chest pain at rest, paroxysmal nocturnal dyspnea, pedal edema, rapid heart rate, slow heart rate, syncope - Respiratory Respiratory: Present: cough, dyspnea on exertion, excessive phlegm production, change in phlegm color. Absent: hemoptysis, wheezing - Gastrointestinal Gastrointestinal: Present: constipation, nausea, vomiting. Absent: abdominal pain - Genitourinary Genitourinary: Absent: hematuria, nocturia - Musculoskeletal Additional comments: left knee pain after walking on treadmill x ray neg. - Integumentary Integumentary: Absent: new lesions, wounds, jaundice - Neurological Neurological: Absent: disequilibrium, dizziness, headache(s), syncope, vertigo - Psychiatric Psychiatric: Present: depression (chr). Absent: anxiety - Endocrine Endocrine: Absent: polydipsia, polyphagia, polyuria - Hematologic/Lymphatic Hematologic/Lymphatic: Absent: easy bleeding, easy bruising - Allergic/Immunologic Allergic/Immunologic: Absent: uticaria, lip swelling Medical - H&P: H Medical history: Medical History (Last Updated 03/21/17 @ 12:18 by Ahsan Maradiaga MD) Acute respiratory failure with hypoxia (Acute) COPD exacerbation (Acute) Laceration (Acute) Laryngitis (Acute) Parotid gland pain (Acute) Pneumonia (Acute) Abnormal chest xray (Chronic) Acute bronchitis (Chronic) Acute cholecystitis with chronic cholecystitis (Chronic) Anemia (Chronic) Anxiety (Chronic) Aspiration pneumonia due to food (regurgitated) (Chronic) Bronchitis (Chronic) COPD (chronic obstructive pulmonary disease) (Chronic) COPD exacerbation (Chronic) COPD with exacerbation (Chronic) Cholecystitis (Chronic) Chronic back pain (Chronic) Chronic pain due to trauma (Chronic) Cough (Chronic) Crushing injury of pelvis (Chronic) Degenerative joint disease (Chronic) Depressive disorder (Chronic) Diabetes mellitus (Chronic) Dizziness (Chronic) Esophageal reflux (Chronic) Fatigue (Chronic) Gallstones and inflammation of gallbladder without obstruction (Chronic) Hemoptysis (Chronic) Hyperlipidemia (Chronic) Hypertension, essential (Chronic) Impetigo (Chronic) Interstitial cystitis (Chronic) Left pulmonary infiltrate on CXR (Chronic) Mass of adrenal gland (Chronic) Nausea and vomiting (Chronic) Neuropathy (Chronic) Orthostatic hypotension (Chronic) Overweight (Chronic) Painful respiration (Chronic) Post-op pain (Chronic) Postural lightheadedness (Chronic) Pulmonary infiltrate (Chronic) Radicular pain of sacrum (Chronic) Rhinitis (Chronic) Right pulmonary infiltrate on CXR (Chronic) Right upper quadrant abdominal pain (Chronic) Schatzki's ring (Chronic) Sexual dysfunction (Chronic) Sleep apnea (Chronic) Spondylolysis of lumbar region (Chronic) Testicular pain (Chronic) Testosterone deficiency (Chronic) Uncontrolled diabetes mellitus (Chronic) Upper respiratory infection (Chronic) Urinary frequency (Chronic) Urinary incontinence (Chronic) Urinary retention with incomplete bladder emptying (Chronic) Urinary retention with incomplete bladder emptying (Chronic) Wrist pain (Chronic) Abdominal pain (Resolved) History of pneumonia (Resolved) Leukocytosis (Resolved) Small bowel obstruction (Resolved) Surgical history: Past Surgical History (Last Updated 03/12/17 @ 14:19 by Nautit AR) Esophageal dilatation (Chronic) History of colonoscopy (Chronic) History of esophagogastroduodenoscopy (Chronic) S/P cholecystectomy (Chronic 01/02/16) History of shoulder surgery (Inactive) Open pelvic fracture (Inactive) Family history: reviewed and not pertinent Medical - H&P: Meds Home Medications Medication Instructions Recorded Confirmed Type cyanocobalamin (vit B-12) 1,000 1,000 mcg PO QDAY tab 04/16/15 11/15/16 History mcg tablet morphine ER 100 mg tablet,extended 100 mg PO BID tab 04/16/15 11/15/16 History release oxybutynin chloride ER 15 mg 15 mg PO QDAY tab 04/16/15 11/15/16 History tablet,extended release 24 hr saw palm 160 mg-vit E 100 1 tab PO .QD tab 04/16/15 11/15/16 History unit-selen 100 boy-plau-ntiwsl-pygeum tablet gabapentin 300 mg capsule 300 mg PO TID cap 05/10/15 11/15/16 History tiotropium bromide 18 mcg capsule 1 inh INHALATION QDAY #90 puff 09/10/15 Rx with inhalation device bupropion HCl SR 200 mg 200 mg PO BID 90 Days 10/29/15 11/15/16 Rx tablet,sustained-release Aspirin 81 mg CHEWED DAILY 01/02/16 11/15/16 History Cholecalciferol (Vitamin D3) 2,000 unit PO DAILY 01/02/16 11/15/16 History [Vitamin D3] Multivit with Calcium,Iron,Min 1 each PO DAILY 01/02/16 11/15/16 History [Maximum Daily Multivitamin] Pioglitazone [Actos] 30 mg PO DAILY 01/02/16 11/15/16 History Repaglinide [Prandin] 4 mg PO TIDAC 01/02/16 11/15/16 History Spironolactone [Aldactone] 25 mg PO DAILY 01/02/16 11/15/16 History Ubidecarenone [Coenzyme Q10] 300 mg PO DAILY 01/02/16 11/15/16 History Vits A,C,E/Lutein/Minerals 1 each PO BID 01/02/16 11/15/16 History [Healthy Eyes Caplet] insulin glargine 100 unit/mL 32 unit SUB-Q QHS ml 01/23/16 11/15/16 History subcutaneous solution carvedilol 12.5 mg tablet 12.5 mg PO BID 90 Days 01/30/16 11/15/16 Rx ranitidine 300 mg capsule 300 mg PO QHS #90 cap 03/20/16 11/15/16 Rx citalopram 40 mg tablet 40 mg PO QDAY 90 Days 04/23/16 11/15/16 Rx omeprazole 40 mg capsule,delayed 40 mg PO QDAY 90 Days 04/23/16 11/15/16 Rx release atorvastatin 40 mg tablet 40 mg PO QHS 90 Days 05/28/16 11/15/16 Rx ondansetron 4 mg disintegrating 4 mg PO Q8H PRN #60 tab 05/29/16 11/15/16 Rx tablet lisinopril 20 1 tab PO QDAY 90 Days 06/12/16 11/15/16 Rx mg-hydrochlorothiazide 25 mg tablet albuterol sulfate HFA 90 2 puff INHALATION Q4-6HP PRN #1 06/24/16 11/15/16 Rx mcg/actuation aerosol inhaler inhaler metformin 1,000 mg tablet 1,000 mg PO BID 90 Days 07/01/16 11/15/16 Rx Alcohol Antiseptic Pads [Alcohol 0 towelett .ROUTE .MEDSUPPLY 11/15/16 11/15/16 History Prep Pads] Blood Sugar Diagnostic [Contour] 0 strip .ROUTE .MEDSUPPLY 11/15/16 11/15/16 History Blood-Glucose Meter [Contour] 0 dose .ROUTE .MEDSULY 11/15/16 11/15/16 History Lancets 0 insert .ROUTE .MEDSULY 11/15/16 11/15/16 History morphine SULFATE [Morphine Sulfate 20 mg PO 11/15/16 History ER] Amoxicillin/Potassium Clav 875 mg PO BIDCC #12 tablet 11/16/16 Rx [Augmentin] Promethazine [Phenergan] 25 mg PO Q4-6HP PRN #30 tablet 11/16/16 Rx predniSONE [Deltasone] 20 mg PO DAILY #8 tablet 11/16/16 Rx Clindamycin HCl [Cleocin] 300 mg PO QID #28 capsule 12/20/16 Rx Allergies Allergy/AdvReac Type Severity Reaction Status Date / Time No Known Drug Allergies Allergy Verified 06/24/16 07:19 Medical - H&P: Exam - Constitutional Vitals: Temp Pulse Resp BP Pulse Ox 99.9 F H 81 20 117/62 96 03/21/17 11:36 03/21/17 12:31 03/21/17 12:31 03/21/17 12:31 03/21/17 12:31 Exam: GENERAL: The patient is a well-developed, well-nourished in no apparent distress. Is alert and oriented x3. warm to touch, VITAL SIGNS: Reviewed and as noted elsewhere. HEENT: Head is normocephalic and atraumatic. Extraocular muscles are intact. Pupils are equal, round, and reactive to light. Nares appeared normal. Mouth appears any without lesions. Mucous membranes are moist. NECK: Normal to inspection, Supple, No lymphadenopathy or thyromegaly. LUNGS: Air entry equal on both sides, no wheezing, crackles or rhonchi noted. No accessory muscles of respiration, prolonged exp phase noted. HEART: Regular rate and rhythm normal, S1 and S2 heard, no Gallop, S3 or Rub Noted, No Gross murmur heard. ABDOMEN: Soft, nontender, and nondistended. Positive bowel sounds. No hepatosplenomegaly was noted. EXTREMITIES: No cyanosis, clubbing, rash, lesions or edema. NEUROLOGIC: Cranial nerves II through XII are grossly intact. Motor and Sensory System Grossly Intact PSYCHIATRIC: Normal affect, Normal Mood. Appropriate Behavior. SKIN: No ulceration or wounds noted, No jaundice, No rash noted. Medical - H&P: Reslt - Labs CBC & Chem 7: 03/21/17 10:20 03/21/17 10:20 Labs: Short CBC 03/21/17 Range/Units 10:20 WBC 13.9 H (4.5-11.0) K/mcL Hgb 13.9 (13.5-16.5) g/dL Hct 42.6 (41.0-55.0) % Plt Count 319 (140-440) K/mcL BMP 03/21/17 10:20 Sodium 135 Potassium 4.1 Chloride 93 L Carbon Dioxide 25 BUN 34 H Creatinine 1.8 H Glucose 195 H Calcium 9.2 Cardiac Enzymes 03/21/17 Range/Units 10:20 Troponin T < 0.01 (0-0.03) ng/ml Liver Function 03/21/17 Range/Units 10:20 Total Bilirubin 0.4 (0.0-1.0) mg/dL AST 14 (0-37) U/l ALT 16 (0-40) U/l Alkaline Phosphatase 103 (39-117) U/L Albumin 4.1 (3.2-5.2) gm/dL Medical - H&P: A/P - Narrative A/P Narrative: a/p Pneumonia Health care associated: Has higher than usual risk for resistant organisms given multiple rounds of antibiotics in the past, treat with vanco and zosyn for now. Cultures pending. Sepsis : fever wbc, pna, lactic acid at upper normal limit, IV fluids and monitor Acute hypoxic respiratory failure: due to pna, supplemental oxygen for now. Acute kidney injury: Creat is 1.8, likely from decreased intake yesterday (was outside and had vomiting this AM) IV fluids for now and monitor CODP Exacerbation: Prolonged exp phase, increased oxygen requirements, treat with steroids and duonebs, ABX DM: Sliding scale insulin HTN: BP normal, hold bp meds for now, resume once bp goes higher. Knee pain: due to mech injury, x ray reported neg, conservative management. Chr bryan: resume home meds once verified. DVT hep sq Diet Carb restricted. Code full Social History - Tobacco smoking status: Former smoker - Quit Details quit date: 12/26/04 pack-years: 40 - Alcohol alcohol intake frequency: does not drink - Substance use substance use type: does not use
[2017-03-21] MEDS ORDERED: FLEETS ADULT ENEMA PR PRN (13:50)
[2017-03-21] MEDS ORDERED: ONDANSETRON 4 MG/2 ML VIAL IV PRN (13:50)
[2017-03-21] MEDS ORDERED: oxyCODONE HCL 5 MG TABLET PO PRN (13:50)
[2017-03-21] MEDS ORDERED: VANCOMYCIN PER PHARMACY IV SCH (13:50)
[2017-03-21] MEDS ORDERED: MAG HYDROX/AL HYDROX/SIMETH 30 ML ORAL.SUSP PO PRN (13:50)
[2017-03-21] MEDS ORDERED: PROMETHAZINE 25 MG/ML VIAL IV PRN (13:50)
[2017-03-21] MEDS ORDERED: DEXTROSE 50% 50 ML VIAL IV PRN (13:50)
[2017-03-21] MEDS ORDERED: NALOXONE HCL 0.4 MG/ML VIAL IV PRN (13:50)
[2017-03-21] MEDS ORDERED: ACETAMINOPHEN 325 MG TABLET PO PRN (13:50)
[2017-03-21] MEDS: 0.9 % SODIUM CHLORIDE 1,000 ML IV SCH (14:07)
[2017-03-21] MEDS: 0.9 % SODIUM CHLORIDE 10 ML SYRINGE IV SCH ×2 (14:10→21:58)
[2017-03-21] MEDS: PIPERACILLIN SODIUM/TAZOBACTAM 3.375 GM in DEXTROSE 5% IN WATER 50 ML IV SCH ×3 (14:11→23:48)
[2017-03-21] MEDS: methylPREDNISolone SOD SUCC 125 MG/2 ML VIAL IV SCH ×2 (14:32→22:18)
[2017-03-21] MEDS: VANCOMYCIN 1,500 MG in 0.9 % SODIUM CHLORIDE 500 ML IV SCH (14:32)
[2017-03-21] MEDS: IPRATROPIUM/ALBUTEROL 3 ML AMPUL.NEB NEB SCH ×3 (15:10→22:54)
[2017-03-21 16:24] LABS: Hemoglobin A1C 6.9 % HGB (4.0-6.0)
[2017-03-21] MEDS: INSULIN LISPRO 1 UNIT/0.01 ML UNIT SQ SCH ×2 (17:15→21:43)
[2017-03-21] MEDS ORDERED: morphine 30 MG TAB.SR.12H PO SCH (21:00)
[2017-03-21] MEDS: HEPARIN 5,000 UNIT/ML VIAL SQ SCH (21:43)
[2017-03-21] MEDS: DOCUSATE SODIUM 100 MG CAPSULE PO SCH (21:43)
[2017-03-22] MEDS: 0.9 % SODIUM CHLORIDE 1,000 ML IV SCH ×3 (03:09→21:15)
[2017-03-22] MEDS: IPRATROPIUM/ALBUTEROL 3 ML AMPUL.NEB NEB SCH ×6 (03:10→22:47)
[2017-03-22] MEDS: 0.9 % SODIUM CHLORIDE 10 ML SYRINGE IV SCH ×3 (05:26→20:32)
[2017-03-22] MEDS: methylPREDNISolone SOD SUCC 125 MG/2 ML VIAL IV SCH (05:44)
[2017-03-22] MEDS: PIPERACILLIN SODIUM/TAZOBACTAM 3.375 GM in DEXTROSE 5% IN WATER 50 ML IV SCH ×4 (05:44→23:59)
[2017-03-22] MEDS ORDERED: morphine 30 MG TAB.SR.12H PO ONE (07:30)
[2017-03-22] MEDS: INSULIN LISPRO 1 UNIT/0.01 ML UNIT SQ SCH ×4 (07:36→20:45)
[2017-03-22 09:09] LABS: Basophils # (Auto) 0 K/mcL (0.0-0.3); Basophils % (Auto) 0 % (0.0-2.0); Eosinophils # (Auto) 0 K/mcL (0.0-0.7); Eosinophils % (Auto) 0 % (0.0-7.0); Granulocytes % (Auto) 92.3 % (38.0-78.0); Lymphocytes % (Auto) 5.4 % (15.5-49.0); Mean Cell Volume 85.6 fL (80.0-100.0); Mean Corpuscular HGB Conc 32.7 g/dL (31.0-36.0); Monocytes # (Auto) 0.4 K/mcL (0.1-0.9); Monocytes % (Auto) 2.3 % (1.0-12.0); Platelet Count 211 K/mcL (140-440); RBC 4.45 M/mcL (4.50-5.90); Red Cell Distribution Width 14.6 % (11.5-14.5)
[2017-03-22 09:24] LABS: ALT/SGPT 13 U/l (0-40); Albumin 3.4 gm/dL (3.2-5.2); Alkaline Phosphatase 77 U/L (39-117); Bilirubin,Direct < 0.2 mg/dL (0.0-0.3); Blood Urea Nitrogen 23 mg/dl (8-23); Gamma Glutamyl Transpeptidase 10 U/L (8-61); Magnesium 1.6 mg/dL (1.6-2.5); Uric Acid 5.3 mg/dL (2.5-8.0)
[2017-03-22] MEDS: DOCUSATE SODIUM 100 MG CAPSULE PO SCH ×2 (09:36→20:31)
[2017-03-22] MEDS: HEPARIN 5,000 UNIT/ML VIAL SQ SCH ×2 (09:37→20:31)
[2017-03-22] MEDS ORDERED: MAGNESIUM SULFATE 2 GM/50 ML BAG IV ONE (10:30)
--- NOTE | 2017-03-22 13:02 | Internal Med Progress Note ---
Medical - PN: Subj Patient information: Note initiated : 03/22/17 at 12:59 pm Service Date, if different from initiated Date: [] Patient: Luis De Leon a 66 y/o M admitted on 03/21/17 for I think I have Pneumonia again. Chief Complaint: [] Interval history: Mr. De Leon is a 66 year old male well known to me from previous admission and being his previous out patient provider. The patient presents to the hospital with his today with complaints of not feeling well x 1 day; The pt was doing well till last night where he was at a ball game, when he woke up this am he was not feeling well, he had fever associated with shortness of breath on activity, cough with whitish yellow sputum, and malaise. he has had several presentations in the past with similar presentations and has been diagnosed with PNA. The patient denies any sick contacts. He had one episode of vomiting this AM, but vomiting was after the fever started ,he has some nausea. No blood reported in vomitus. He had chr contipation due to his chr use of narcotics for back pain. In the ER he was noted to be febrile, Elevated wbc on labs, CXR suggestive of PNA< lacate at upper normal limit., He was therefore admitted to the hospital for management of sepsis and pneumonia. 03/22 Pt seen examined, no acute overnight issues, slept well, tolerating po well , off oxygen and seems to be near baseline. The patient is ambulating well without support. The patient wants to go home today. The patients labs reviewed with him, his WBC count has gone up to 19K this AM, which is either from infection vs steroids, clincially he has improved but I think given his worsening wbc it would be safe to just observe him for another 24 hrs. Pertinent ROS: Denies headache, dizziness Denies chest pain, palpitations Denies cough or shortness of breath (much better) Denies abdominal pain, nausea or vomiting. - Constitutional Vitals: Vital Signs Temp Pulse Resp BP Pulse Ox 97.6 F 70 16 148/64 92 03/22/17 11:12 03/22/17 11:17 03/22/17 11:17 03/22/17 11:12 03/22/17 11:12 Period Temp Pulse Resp BP Sys/Shin Pulse Ox Last 24 Hr 97.5 F-99.9 F 67-88 16-22 134-157/56-88 91-97 Intake and Output 03/21/17 03/22/17 03/22/17 21:59 05:59 13:59 Intake Total 670 / 670 1450 / 1450 860 / 860 Output Total 1050 / 1050 1700 / 1700 Balance -380 / -380 -250 / -250 860 / 860 Weight 228 lb 228 lb Patient Weight 03/23/17 05:59 Weight 228 lb Intake & Output: Intake & Output 03/21/17 03/22/17 03/22/17 21:59 05:59 13:59 Intake Total 670 / 670 1450 / 1450 860 / 860 Output Total 1050 / 1050 1700 / 1700 Balance -380 / -380 -250 / -250 860 / 860 Weight 228 lb 228 lb Intake: IV 550 / 550 1050 / 1050 Sodium Chloride 0.9% 1, 1000 / 1000 000 ml @ 84 mls/hr IV . [id number] Rx#:[id number] Zosyn 3.375 gm In 50 / 50 50 / 50 Dextrose 5% in Water 50 ml @ 100 mls/hr IV Q6H JS Rx#:[id number] Vancomycin 1,500 mg In 500 / 500 Sodium Chloride 0.9% 500 ml @ 333.3 mls/hr IV Q24H JS Rx#:[id number] Oral 120 / 120 400 / 400 860 / 860 Output: Void Amount 1050 / 1050 1700 / 1700 Other: Meal Dinner Breakfast Percent of Meal Consumed 80% 100% Feeding Ability Assist with Tray Set Up Exam: Constitutional; Afebrile, cooperative, alert, not in distress. Eyes- No icterus, , No periorbital swelling Ears- Ext ear normal, hearing normal to conversation. Neck- Midline trachea, supple Respiratory system: Air Entry equal on both sides, No crackles or wheezing, no rhonchi. CVS- Rate rhythm regular, S1,S2 heard, no gallop, no rub. Abdomen- Soft nontender abdomen, no organomegaly, no tenderness, no guarding or rigidity, INTERIOR SPECIALIST- AOOx3, moving all extremities, no gross focal deficit noted. Medical - PN: Obj Da - Labs CBC & Chem 7: 03/22/17 08:25 03/22/17 08:25 Labs: Abnormal Lab Results 03/22/17 03/22/17 08:25 08:25 WBC 19.1 H RBC 4.45 L Hgb 12.5 L Hct 38.1 L RDW 14.6 H Gran % 92.3 H Lymph % (Auto) 5.4 L Gran # 17.6 H Lymph # 1.0 L Carbon Dioxide 21 L Glucose 329 H Phosphorus 2.5 L Meds: Medications Acetaminophen (Tylenol) 650 mg PO Q6HP PRN PRN Reason: PAIN/FEVER > 101 Al Hydrox/Mg Hydrox/Simethicone (Maalox) 30 ml PO Q6HP PRN PRN Reason: Dyspepsia Albuterol/Ipratropium (Duoneb) 3 ml NEB Q4HRT [facility] Last Admin: 03/22/17 11:17 Dose: 3 ml Aspirin (Aspirin) 81 mg CHEWED DAILY [facility] Atorvastatin Calcium (Lipitor) 40 mg PO QHS [facility] Bupropion HCl (Wellbutrin Sr) 200 mg PO BID [facility] Carvedilol (Coreg) 12.5 mg PO BID [facility] Dextrose (Dextrose 50%) 0 ml IV UD PRN PRN Reason: Hypoglycemia Diagnostic Test (Pha) (Accu-Chek) 1 each FS ACHS [facility] Last Admin: 03/22/17 12:18 Dose: 1 each Docusate Sodium (Colace) 100 mg PO BID [facility] Last Admin: 03/22/17 09:36 Dose: 100 mg Gabapentin (Neurontin) 300 mg PO TID [facility] Heparin Sodium (Porcine) (Heparin) 5,000 unit SQ Q12 [facility] Last Admin: 03/22/17 09:37 Dose: 5,000 unit Sodium Chloride (Sodium Chloride 0.9%) 1,000 mls @ 84 mls/hr IV .[id number] [facility] Last Admin: 03/22/17 03:09 Dose: 84 mls/hr Piperacillin Sod/Tazobactam (Sod 3.375 gm/ Dextrose) 50 mls @ 100 mls/hr IV Q6H [facility] Last Admin: 03/22/17 05:44 Dose: 100 mls/hr Vancomycin HCl 1,500 mg/ (Sodium Chloride) 500 mls @ 333.3 mls/hr IV Q24H [facility] Last Infusion: 03/21/17 16:05 Dose: Infused Insulin Glargine (Lantus) 32 unit SQ QHS [facility] Insulin Human Lispro (Humalog) 0 unit SQ ACHS JS PRN Reason: Protocol Last Admin: 03/22/17 12:22 Dose: 8 unit Morphine Sulfate (Ms Contin) 120 mg PO BID@0700,1900 [facility] Morphine Sulfate (Ms Contin) 100 mg PO BID [facility] Naloxone HCl (Narcan) 0.1 mg IV Q2MIN PRN PRN Reason: Opiate Reversal Non-Formulary Medication (Cholecalciferol (Vitamin D3) [Vitamin D3]) 2,000 unit PO DAILY [facility] Non-Formulary Medication (Citalopram Hydrobromide [Citalopram Hbr]) 40 mg PO QDAY [facility] Non-Formulary Medication (Cyanocobalamin (Vit B-12)) 1,000 mcg PO QDAY [facility] Non-Formulary Medication (Lisinopril/Hydrochlorothiazide [Zestoretic 20-25 Mg Tablet]) 1 tab PO QDAY [facility] Non-Formulary Medication (Morphine Sulfate [Morphine Sulfate Er]) 20 mg PO BID [facility] Non-Formulary Medication (Multivit With Calcium,Iron,Min [Maximum Daily Multivitamin]) 1 each PO DAILY [facility] Non-Formulary Medication (Omeprazole) 40 mg PO QDAY [facility] Non-Formulary Medication (Oxybutynin Chloride [Oxybutynin Chloride Er]) 15 mg PO QDAY [facility] Non-Formulary Medication (Ranitidine) 300 mg PO QHS [facility] Ondansetron HCl (Zofran) 4 mg IV Q6HP PRN PRN Reason: Nausea And Vomiting Oxycodone HCl (Roxicodone) 5 mg PO Q4HP PRN PRN Reason: Pain Pioglitazone HCl (Actos) 30 mg PO DAILY [facility] Promethazine HCl (Phenergan) 12.5 mg IV Q6HP PRN PRN Reason: Nausea And Vomiting Sodium Biphosphate/Sodium Phosphate (Fleets Adult) 1 dose IN Q3-4DAYS PRN PRN Reason: Constipation Sodium Chloride (Saline Flush) 10 ml IV Q8 [facility] Last Admin: 03/22/17 05:26 Dose: Not Given Spironolactone (Aldactone) 25 mg PO DAILY [facility] Vancomycin HCl (Vancomycin Per Pharmacy) 1 order IV UD [facility] Medical - PN: A/P - Time Spent With Patient Total time spent is greater than 50% in coordination of care (as documented) at patient's floor/unit and/or counseling patient: - Narrative A/P Narrative: Pneumonia Health care associated: Has higher than usual risk for resistant organisms given multiple rounds of antibiotics in the past, on treatment with vanco and zosyn for now. Cultures pending. sputum culture growing gram neg bacillus. Sepsis : fever wbc, pna, lactic acid at upper normal limit, IV fluids and monitor resolved Acute kidney injury: reslved, creat back to baseline. CODP Exacerbation: Prolonged exp phase, increased oxygen requirements, treat with steroids and duonebs, ABX, much improved, continue to monitor. DM: Sliding scale insulin, resume home dose of lantus, glucose high, but expect improvement after resumption of home dose. HTN: BP normal, hold bp meds for now, resume once bp goes higher. Knee pain: due to mech injury, x ray reported neg, conservative management. Chr pain: resume home meds DVT hep sq Diet Carb restricted. Code full
[2017-03-22] MEDS: VANCOMYCIN 1,500 MG in 0.9 % SODIUM CHLORIDE 500 ML IV SCH (14:54)
[2017-03-22] MEDS: GABAPENTIN 300 MG CAPSULE PO SCH ×2 (14:55→20:30)
--- NOTE | 2017-03-22 16:33 | XRay Report ---
CLINICAL INFORMATION: Right lower lobe pneumonia COMPARISON: 03/21/2017 FINDINGS: Heart, mediastinum and pulmonary vessels are unremarkable. Moderate airspace disease throughout the right lung has returned to baseline. Minor airspace disease in the left midlung is also unchanged. No effusion. Bones soft tissues normal. IMPRESSION: Moderate airspace disease throughout the right lung is similar to multiple older studies. 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 No acute infiltrate evident on today's study. Mild airspace disease left midlung is also likely chronic Interpreted and Authenticated by: Jeremi Alonzo 03/22/17
[2017-03-22] MEDS: CARVEDILOL 12.5 MG TABLET PO SCH (17:18)
[2017-03-22] MEDS: morphine 30 MG TAB.SR.12H PO SCH (19:00)
[2017-03-22] MEDS: buPROPion 100 MG TAB.SR.12H PO SCH (20:30)
[2017-03-22] MEDS ORDERED: ATORVASTATIN 20 MG TABLET PO SCH (21:00)
[2017-03-22] MEDS ORDERED: morphine 100 MG TABLET.ER PO SCH (21:00)
[2017-03-22] MEDS ORDERED: FAMOTIDINE 20 MG TABLET PO SCH (21:00)
[2017-03-22] MEDS ORDERED: INSULIN GLARGINE, HUMAN 1 UNIT/0.01 ML SQ SCH (21:00)
[2017-03-22] MEDS ORDERED: MORPHINE SULFATE 20 MG PO SCH (21:00)
[2017-03-23] MEDS: IPRATROPIUM/ALBUTEROL 3 ML AMPUL.NEB NEB SCH ×3 (03:15→11:11)
[2017-03-23] MEDS: 0.9 % SODIUM CHLORIDE 1,000 ML IV SCH ×2 (04:03→12:16)
[2017-03-23] MEDS: CARVEDILOL 12.5 MG TABLET PO SCH ×2 (04:05→08:08)
[2017-03-23] MEDS: PIPERACILLIN SODIUM/TAZOBACTAM 3.375 GM in DEXTROSE 5% IN WATER 50 ML IV SCH ×2 (05:36→12:15)
[2017-03-23] MEDS: 0.9 % SODIUM CHLORIDE 10 ML SYRINGE IV SCH (05:36)
[2017-03-23 06:39] LABS: Basophils # (Auto) 0 K/mcL (0.0-0.3); Basophils % (Auto) 0.2 % (0.0-2.0); Eosinophils # (Auto) 0 K/mcL (0.0-0.7); Eosinophils % (Auto) 0.2 % (0.0-7.0); Granulocytes % (Auto) 78.1 % (38.0-78.0); Lymphocytes # (Auto) 2.3 K/mcL (1.5-4.8); Lymphocytes % (Auto) 15.1 % (15.5-49.0); Mean Cell Volume 86.4 fL (80.0-100.0); Mean Corpuscular HGB Conc 32.4 g/dL (31.0-36.0); Monocytes % (Auto) 6.4 % (1.0-12.0); Platelet Count 209 K/mcL (140-440); RBC 3.79 M/mcL (4.50-5.90); Red Cell Distribution Width 14.7 % (11.5-14.5)
[2017-03-23 06:56] LABS: ALT/SGPT 10 U/l (0-40); Albumin 3.1 gm/dL (3.2-5.2); Albumin/Globulin Ratio 1.2 (1.0-2.3); Alkaline Phosphatase 67 U/L (39-117); Bilirubin,Direct < 0.2 mg/dL (0.0-0.3); Blood Urea Nitrogen 24 mg/dl (8-23); Gamma Glutamyl Transpeptidase 9 U/L (8-61); Magnesium 1.7 mg/dL (1.6-2.5); Uric Acid 4.6 mg/dL (2.5-8.0)
[2017-03-23] MEDS: morphine 30 MG TAB.SR.12H PO SCH (07:00)
[2017-03-23] MEDS: INSULIN LISPRO 1 UNIT/0.01 ML UNIT SQ SCH ×2 (07:08→12:15)
[2017-03-23] MEDS ORDERED: PANTOPRAZOLE 40 MG TABLET PO SCH (07:30)
[2017-03-23] MEDS ORDERED: SPIRONOLACTONE 25 MG TABLET PO SCH (09:00)
[2017-03-23] MEDS ORDERED: MULTIVIT,THER IRON,CA,FA & MIN 1 TABLET PO SCH (09:00)
[2017-03-23] MEDS ORDERED: PIOGLITAZONE 15 MG TABLET PO SCH (09:00)
[2017-03-23] MEDS ORDERED: ASPIRIN 81 MG TAB.CHEW CHEWED SCH (09:00)
[2017-03-23] MEDS ORDERED: HYDROCHLOROTHIAZIDE 25 MG TABLET PO SCH (09:00)
[2017-03-23] MEDS ORDERED: CITALOPRAM 20 MG TABLET PO SCH (09:00)
[2017-03-23] MEDS ORDERED: LISINOPRIL 20 MG TABLET PO SCH (09:00)
[2017-03-23] MEDS ORDERED: VITAMIN D3 1,000 UNIT TABLET PO SCH (09:00)
[2017-03-23] MEDS ORDERED: OXYBUTYNIN CHLORIDE 5 MG TAB.XL.24H PO SCH (09:00)
[2017-03-23] MEDS ORDERED: CYANOCOBALAMIN (VITAMIN B-12) 500 MCG TABLET PO SCH (09:00)
[2017-03-23] MEDS: HEPARIN 5,000 UNIT/ML VIAL SQ SCH (10:17)
[2017-03-23] MEDS: GABAPENTIN 300 MG CAPSULE PO SCH (10:17)
[2017-03-23] MEDS: buPROPion 100 MG TAB.SR.12H PO SCH (10:17)
[2017-03-23] MEDS: DOCUSATE SODIUM 100 MG CAPSULE PO SCH (10:18)
--- NOTE | 2017-03-23 12:46 | Discharge Summary ---
Medical - DS: Prov Patient information: Note initiated : 03/23/17 at 12:41 pm Service Date, if different from initiated Date: [] Patient: Luis De Leon 66 y/o M admitted on 03/21/17 for I think I have Pneumonia again. Chief Complaint: [] Date of admission: 03/21/17 13:30 Discharge date: 03/23/17 [id number] Admitting clinician: Susan Eden Attending physician on discharge: Christen Condon Medical - DS: Meds - Discharge Medications Prescriptions: Amoxicillin/Potassium Clav [Augmentin] 875 mg PO Q12H #14 tablet Ciprofloxacin [Cipro] 500 mg PO BID #14 tablet Active and Home Medications: Home Medications cyanocobalamin (vit B-12) 1,000 mcg tablet 1,000 mcg PO QDAY tab 04/16/15 [ History Confirmed 03/22/17 Last Taken 03/21/17 09:00] morphine ER 100 mg tablet,extended release 100 mg PO BID tab 04/16/15 [History Confirmed 03/22/17 Last Taken 11/14/16 19:00] oxybutynin chloride ER 15 mg tablet,extended release 24 hr 15 mg PO QDAY tab [History Confirmed 03/22/17 Last Taken 03/21/17 09:00] saw palm 160 mg-vit E 100 unit-selen 100 lzv-afew-dvmduv-pygeum tablet 1 tab PO .QD tab 04/16/15 [History Confirmed 03/22/17 Last Taken 03/21/17 09:00] gabapentin 300 mg capsule 300 mg PO TID cap 05/10/15 [History Confirmed Last Taken 03/21/17 09:00] tiotropium bromide 18 mcg capsule with inhalation device 1 inh INHALATION QDAY # 90 puff 09/10/15 [Rx Confirmed 03/22/17 Last Taken 03/21/17 09:00] bupropion HCl SR 200 mg tablet,sustained-release 200 mg PO BID 90 Days 10/29/15 [Rx Confirmed 03/22/17 Last Taken 03/21/17 09:00] Aspirin 81 mg CHEWED DAILY 01/02/16 [History Confirmed 03/22/17 Last Taken 03/21 09:00] Cholecalciferol (Vitamin D3) [Vitamin D3] 2,000 unit PO DAILY 01/02/16 [History Confirmed 03/22/17 Last Taken 03/21/17 09:00] Multivit with Calcium,Iron,Min [Maximum Daily Multivitamin] 1 each PO DAILY 07/11 [History Confirmed 03/22/17 Last Taken 03/21/17 09:00] Pioglitazone [Actos] 30 mg PO DAILY 01/02/16 [History Confirmed 03/22/17 Last Taken 03/21/17 09:00] Repaglinide [Prandin] 4 mg PO TIDAC 01/02/16 [History Confirmed 03/22/17 Last Taken 03/21/17 09:00] Spironolactone [Aldactone] 25 mg PO DAILY 01/02/16 [History Confirmed 03/22/17 Last Taken 03/21/17 09:00] Ubidecarenone [Coenzyme Q10] 300 mg PO DAILY 01/02/16 [History Confirmed Last Taken 03/21/17 09:00] Vits A,C,E/Lutein/Minerals [Healthy Eyes Caplet] 1 each PO BID 01/02/16 [ History Confirmed 03/22/17 Last Taken 03/21/17 09:00] insulin glargine 100 unit/mL subcutaneous solution 32 unit SUB-Q QHS ml [History Confirmed 03/22/17 Last Taken 03/20/17 21:30] carvedilol 12.5 mg tablet 12.5 mg PO BID 90 Days 01/30/16 [Rx Confirmed Last Taken 03/21/17 09:00] ranitidine 300 mg capsule 300 mg PO QHS #90 cap 03/20/16 [Rx Confirmed 03/22/17 Last Taken 03/20/17 21:30] citalopram 40 mg tablet 40 mg PO QDAY 90 Days 04/23/16 [Rx Confirmed 03/22/17 Last Taken 03/21/17 09:00] omeprazole 40 mg capsule,delayed release 40 mg PO QDAY 90 Days 04/23/16 [Rx Confirmed 03/22/17 Last Taken 03/21/17 09:00] atorvastatin 40 mg tablet 40 mg PO QHS 90 Days 05/28/16 [Rx Confirmed 03/22/17 Last Taken 03/20/17 21:30] ondansetron 4 mg disintegrating tablet 4 mg PO Q8H PRN #60 tab 05/29/16 [Rx Confirmed 03/22/17 Last Taken 11/14/16 19:00] lisinopril 20 mg-hydrochlorothiazide 25 mg tablet 1 tab PO QDAY 90 Days [Rx Confirmed 03/22/17 Last Taken 03/21/17 09:00] albuterol sulfate HFA 90 mcg/actuation aerosol inhaler 2 puff INHALATION Q4-6HP PRN #1 inhaler 06/24/16 [Rx Confirmed 03/22/17 Last Taken Unknown] metformin 1,000 mg tablet 1,000 mg PO BID 90 Days 07/01/16 [Rx Confirmed Last Taken 03/21/17 09:00] Alcohol Antiseptic Pads [Alcohol Prep Pads] 0 towelett .ROUTE .MEDSUPPLY [History Confirmed 03/22/17 Last Taken 03/21/17] Blood Sugar Diagnostic [Contour] 0 strip .ROUTE .MEDSUPPLY 11/15/16 [History Confirmed 03/22/17 Last Taken 03/21/17] Blood-Glucose Meter [Contour] 0 dose .ROUTE .MEDSUPPLY 11/15/16 [History Confirmed 03/22/17 Last Taken 03/21/17] Lancets 0 insert .ROUTE .MEDSUPPLY 11/15/16 [History Confirmed 03/22/17 Last Taken 03/21/17] morphine SULFATE [Morphine Sulfate ER] 30 mg PO BID 11/15/16 [History Confirmed 03/22/17 Last Taken 11/14/16 19:00] Promethazine [Phenergan] 25 mg PO Q4-6HP PRN #30 tablet 11/16/16 [Rx Confirmed 03/22/17 Last Taken Unknown] predniSONE [Deltasone] 20 mg PO DAILY #8 tablet 11/16/16 [Rx Confirmed 03/22/17 Last Taken 03/21/17 09:00] Medical - DS: Hosp Hospital course: Mr. De Leon is a 66 year old male March 21, 2017: History of present illness: Mr. De Leon is a 66 year old male well known to me from previous admission and being his previous out patient provider. The patient presents to the hospital with his today with complaints of not feeling well x 1 day; The pt was doing well till last night where he was at a ball game, when he woke up this am he was not feeling well, he had fever associated with shortness of breath on activity, cough with whitish yellow sputum, and malaise. he has had several presentations in the past with similar presentations and has been diagnosed with PNA. The patient denies any sick contacts. He had one episode of vomiting this AM, but vomiting was after the fever started ,he has some nausea. No blood reported in vomitus. He had chronic constipation due to his chronic use of narcotics for back pain. In the ER he was noted to be febrile, Elevated wbc on labs, CXR suggestive of PNA< lacate at upper normal limit., He was therefore admitted to the hospital for management of sepsis and pneumonia. March 22: Pt seen examined, no acute overnight issues, slept well, tolerating po well, off oxygen and seems to be near baseline. The patient is ambulating well without support. The patient wants to go home today. The patients labs reviewed with him, his WBC count has gone up to 19K this AM, which is either from infection vs steroids, clincially he has improved but I think given his worsening wbc it would be safe to just observe him for another 24 hrs. march 23:Today, the patient is feeling much better, and feels he is at his baseline. He is very anxious to get out of the hospital and go home. He continues to have mild dyspnea with exertion, but that is near baseline. He beliefs he no longer has a cough and does not feel a subjective sense of fever. He otherwise denies headaches or dizziness, sore throat, chest pain or palpitations, abdominal pain, current nausea or vomiting, diarrhea, dysuria. n exam, he is awake and alert, and appears quite energetic. Neck is supple without obvious lymphadenopathy or JVD. Cardiac exam shows regular rate and rhythm Lungs:Lungs are fairly clear, with just a few scattered crackles. No wheezing is noted. No accessory- muscle use is noted. abdomen is soft and nontender. Extremities show no edema. assessment and plan:- #1. Pneumonia Health care associated: Has higher than usual risk for resistant organisms given multiple rounds of antibiotics in the past, treated initially with vancomycin and Zosyn. Blood cultures are negative so far. Sputum culture is growing a gram-negative craig. -i will switch him to oral Ciprocover likely gram negatives, as well as Augmentin, to cover gram negatives as well as anaerobes, which she is at risk from because of frequent vomiting. -early sepsis presentation resolved. #2.Acute kidney injury: reslved, creat back to baseline. 33.COPD Exacerbation: the patient is off steroids. He can resume homeinhalers with spiriva and albuterol. .Because of frequent episodes of apparent pneumonia, he should be referred to the new pulmonary doctor that is arriving in [facility] next month. chest x-ray is suggestive of fibrosis #4.DM: This was treated with Lantus and sliding scale insulin. Glucose this morning was 134. -he will continue home Lantus and by mouth glitazone. #5.HTN-- reasonable control. Resume home medications. Knee pain: due to mech injury, x ray reported neg, conservative management. Chr pain: resume home meds DVT hep sq Diet Carb restricted. Code full Approximately 35 minutes was spent today, reviewing the patient's chart and test results, interviewing and examining him reviewing plan of care with nursing staff, and writing orders. Discharge diagnosis: bilateral pneumonia, COPD possible pulmonary fibrosis Secondary discharge diagnosis: iabetes, hypertension - Time Spent with Patient Total time spent providing and/or coordinating discharge services: Greater than 30 minutes Medical - DS: Exam - Constitutional Vitals: Vital Signs Temp Pulse Pulse Resp BP BP Pulse Ox 03/23/17 12:00 97.8 F 18 175/80 95 03/23/17 11:14 64 16 03/23/17 10:23 147/69 03/23/17 07:30 56 L 16 03/23/17 07:13 97.5 F 18 115/61 97 03/23/17 04:58 159/79 03/23/17 03:20 98.7 F 63 16 180/70 95 03/22/17 23:27 98.5 F 71 16 138/57 96 03/22/17 22:53 68 16 03/22/17 19:59 98.5 F 81 18 139/82 94 03/22/17 19:20 76 16 03/22/17 15:19 97.9 F 16 126/69 97 03/22/17 15:09 80 16 03/22/17 15:04 94 05/28/17 15:03 94 Intake and Output 03/22/17 03/23/17 03/23/17 21:59 05:59 13:59 Intake Total 2340 / 2340 350 / 350 240 / 240 Balance 2340 / 2340 350 / 350 240 / 240 Intake: IV 1620 / 1620 50 / 50 Sodium Chloride 0.9% 1, 1520 / 1520 000 ml @ 84 mls/hr IV . [id number] JS Rx#:[id number] Zosyn 3.375 gm In 100 / 100 50 / 50 Dextrose 5% in Water 50 ml @ 100 mls/hr IV Q6H JS Rx#:[id number] Oral 720 / 720 300 / 300 240 / 240 Other: Meal Dinner Breakfast Percent of Meal Consumed 75% 75% Feeding Ability Independent # Voids 1 1 Weight 231 lb 8 oz Medical - DS: Data Labs on day of discharge: Labs from last 24 hours 03/23/17 03/23/17 04:59 04:59 WBC 15.5 H RBC 3.79 L Hgb 10.6 L Hct 32.8 L MCV 86.4 MCH 28.0 MCHC 32.4 RDW 14.7 H Plt Count 209 MPV 8.7 Gran % 78.1 H Lymph % (Auto) 15.1 L Tyrrell % (Auto) 6.4 Eos % (Auto) 0.2 Baso % (Auto) 0.2 Gran # 12.1 H Lymph # 2.3 Tyrrell # 1.0 H Eos # 0 Baso # 0 Sodium 138 Potassium 4.0 Chloride 104 Carbon Dioxide 26 Anion Gap 8.0 BUN 24 H Creatinine 0.9 GFR Calculation 89 Glucose 148 H Uric Acid 4.6 Calcium 8.6 Phosphorus 2.0 L Magnesium 1.7 Total Bilirubin 0.2 Direct Bilirubin < 0.2 GGT 9 AST 10 ALT 10 Alkaline Phosphatase 67 Lactate Dehydrogenase 137 Total Protein 5.7 L Albumin 3.1 L Globulin 2.6 Albumin/Globulin Ratio 1.2 Triglycerides 94 d-dimer was mildly elevated at 0.41 Lactic acidwas normal at 2.2 Phosphorus was low at 2.0 sputum is growing a gram-negative bacillus, ID to follow Blood cultures are negative so far EKGshowed normal sinus rhythm at a rate of 84, with left axis deviationand left anterior fascicular block. chest x-ray from March 21 suggeste bilateral infiltrates. Chest x-ray on March 22, showed moderate airspace disease throughout the right lung, returning to baseline. Minor airspace disease in the left midlung, unchanged. These changes may likely be organized fibrosis. nee x-ray from March 21showed degenerative changes of the patella. VBG from March 21, 2017: Shows pH of 7.39, CO2 51, PaO2 21 bicarbonate 30, O2 sat 34% Medical - DS: A/P - Patient/Caregiver Discharge Instructions Activity: increase activity as tolerated Diet: Low Sodium (2gm), Cardiac, Consistent Carbohydrate Additional Instructions: You have been started on 2 antibiotics to cover pneumonia. your sputum culture is still pending, but you may want to call your doctor's office to check on thattomorrow as may beone of the antibioticscould be discontinued. please use ipratropium and albuterol inhalers or nebulizers, at least once a day and albuterol up to 4 times a day for any wheezing or shortness of breath. Please call if he develops high fever or increasing shortness of breath. Please ask your regular doctor to refer you to the new pulmonary doctor for a consult. - Follow up Plan Follow up with: Cesar Llanos DO [Primary Care Provider] - (Call on Thursday for a hospital follow up in 7-10 days.) Disposition: Home, Self-Care Prognosis: Good Rehab Potential: Good Overall status at discharge: patient is progressing back to baseline
== END 2017-03-23 14:59 | disposition home or self-care (01) | DRG 871 ==
LOC: ED 09:45 → MEDSUR 13:25 → SUATTDRO 13:30 → MEDSUR 13:30
PROVIDERS: ADMIT Internal Medicine; ATTEND Internal Medicine

== ENCOUNTER 2017-06-06 07:29 | Inpatient (IN) ==
[2017-06-06] MEDS ORDERED: 0.9 % SODIUM CHLORIDE 1,000 ML IV ONE ×5 (07:49→13:17)
[2017-06-06] MEDS ORDERED: AZITHROMYCIN 500 MG in DEXTROSE 5% IN WATER 250 ML IV ONE (09:19)
[2017-06-06] MEDS ORDERED: cefTRIAXone 1 GM in DEXTROSE 5% IN WATER 50 ML IV ONE (09:19)
[2017-06-06 09:22] LABS: Basophils # (Auto) 0 K/mcL (0.0-0.3); Basophils % (Auto) 0.2 % (0.0-2.0); Eosinophils # (Auto) 0.2 K/mcL (0.0-0.7); Eosinophils % (Auto) 1.7 % (0.0-7.0); Lymphocytes # (Auto) 1.1 K/mcL (1.5-4.8); Mean Corpuscular HGB Conc 32.9 g/dL (31.0-36.0); Mean Corpuscular Hemoglobin 28.3 pg (26.0-34.0); Monocytes # (Auto) 0.7 K/mcL (0.1-0.9); Monocytes % (Auto) 6.1 % (1.0-12.0); Platelet Count 207 K/mcL (140-440); RBC 4.08 M/mcL (4.50-5.90)
[2017-06-06 09:42] LABS: ALT/SGPT 14 U/l (0-40); Albumin 3.5 gm/dL (3.2-5.2); Albumin/Globulin Ratio 1.3 (1.0-2.3); Alkaline Phosphatase 100 U/L (39-117); Blood Urea Nitrogen 56 mg/dl (8-23)
--- NOTE | 2017-06-06 10:34 | Emergency Department Note ---
ED Note Addendum Note Addendum: HPI Patient is a 66-year-old gentleman who is brought in by his who reports that he has had several hours on the evening before admission with disorientation, stumbling and not being able to walk, spilling coffee, and was looking in the cereal covered for inappropriate things. He has had several similar episodes even multiple that were each time related to pneumonias. His reports that there were up to 12 different times, has been admitted to the ICU on occasions, and been in the [facility] multiple times. He had 3 episodes of vomiting this morning. He has a known history of COPD for a few years. No previous history of low blood pressure. He was seen by the dice dealer yesterday and was pronounced that his lungs were "clear". He was doing some rattling while breathing at night. was sure that this was likely to be a pneumonia based on near exact similarity to previous presentations. Hospitalist remembers having seen this patient and has assisted in workup. He has had CT scans, seen pulmonology, but has been resistant to going out of town. Has not had a bronchoscopy. No specific immune suppression sore malnutrition or alcohol history is specifically known. PAST MEDICAL HX assisted with previous notes that have been taken as patient was not reliable historian and due to other complicating patients in the emergency room. History of respiratory failure, acute COPD with exacerbations. Chronic anemia. Chronic anxiety or Arthritis, chronic Recurrent pneumonia including aspiration Chronic back pain History of crushing injury to the pelvis. Degenerative joint disease chronic, wrist, depression Diabetes mellitus type 2 gERD, chronic Fatigue Hypertension, essential, chronic Hyperlipidemia, chronic Interstitial cystitis, chronic mass of the adrenal gland, chronic, benign Chronic neuropathy Overweight Rhinitis, chronic Erectile dysfunction, chronic Central sleep apnea Hypogonadism Urinary retention, incomplete emptying History of small bowel obstruction, resolved Tubular adenoma, colon SURGICAL HISTORY SHOULDER ESOPHAGEAL DILATATION CHOLECYSTECTOMY HIP SURGERY PELVIC RECONSTRUCTION DUE TO THE FRACTURE IN [facility] IN 2005 SOCIAL HISTORY former smoker quitting 11 years ago and had a 40 year history. Denies alcohol No drug use. MEDICATION aspirin atorvastatin Carvedilol D 3Citalopram CoQ10 B12 Famotidine Gabapentin Lantus NovoLog Lisinopril-hydrochlorothiazide Metformin Morphine Multivitamin with iron and minerals Ondansetron Oxybutynin chloride extended release Oxycodone Ranitidine Spironolactone Tamsulosin Vitamin A Saw-Vit E-sod [id number] (supplement) ALLERGIES NKDA REVIEW OF SYS no reported chest pains or swelling or sweatiness. Has ad problems with difficulty sleeping and fatigue and weakness but no chills before this evening. He reports heartburnand some nausea and vomiting. No difficulty swallowing. He gets up at night 4-6 times a night and has urinary hesitancy as well. He has some back pain and arthralgias but no specific muscle weakness reported. No new skin lesions. He reports memory loss. Denies heat or cold intolerance. He reports bleeding easily. (Much of these review of systems were obtained the day before by the dice dealer.) EXAM General: Able to be aroused and alert but mostly with his eyes closed on a oxygen math and sleeping. Head: Normocephalic and atraumatic. ENT: Normal mouth structures. Neck: No lymphadenopathy or thyromegaly. Cardiovascular: Regular without murmur. Lungs: Some decreased breath sounds on the right some crackles. But mostly clear. Abdomen: Soft and nontender Extremities no edema or cyanosis or clubbing. Neurologic: Unable to assess well with him on the oxygen mask and sleepy. Seems a bit slow in responsiveness. COURSE Patient was monitored and given oxygen to keep his saturations above 90 and this required most of the time 4 L while he was resting. He had persisting systolic blood pressures in the 86-96 range. He was given fluids. Labs were drawn but he did not have a elevated white count. Other labs seem to be fairly unremarkable. However, with his temperature, hypoxia, and with some chest x-ray findings that demonstrated a right lower lobe infiltrate that was new with prominence of the inferior sulcus, it was felt that likely he did indeed have a new pneumonia. Antibiotics were given in the form of Zithromax and ceftriaxone. Patient was discussed with the hospitalist and admitted for care to ICU. DX: Pneumonia, new Hypoxia Hypotension Diabetes M - 2 COPD See problem list/Past Med History list above.
[2017-06-06] MEDS ORDERED: DEXTROSE 31 GM ORAL.SUSP PO PRN (10:47)
[2017-06-06] MEDS ORDERED: MAGNESIUM HYDROXIDE 30 ML ORAL.SUSP PO PRN (10:47)
[2017-06-06] MEDS ORDERED: ACETAMINOPHEN 325 MG TABLET PO PRN (10:47)
[2017-06-06] MEDS ORDERED: DEXTROSE 50% 50 ML VIAL IV PRN (10:47)
[2017-06-06] MEDS ORDERED: NALOXONE HCL 0.4 MG/ML VIAL IV PRN (10:47)
[2017-06-06] MEDS ORDERED: ONDANSETRON 4 MG/2 ML VIAL IV PRN (10:47)
[2017-06-06] MEDS ORDERED: VANCOMYCIN PER PHARMACY IV SCH (10:47)
[2017-06-06] MEDS: 0.9 % SODIUM CHLORIDE 1,000 ML IV SCH ×2 (11:00→20:21)
[2017-06-06] MEDS: IPRATROPIUM/ALBUTEROL 3 ML AMPUL.NEB NEB SCH ×4 (11:01→23:17)
[2017-06-06 11:48] LABS: Appearance,Urine HAZY; Bacteria,Urine 0 /hpf (0); Bilirubin,Urine NEG (NEG); Color,Urine YELLOW; Glucose,Urine (UA) 50 mg/dL (NEG); Leukocyte Esterase,Urine 250 /uL (NEG); Mucus,Urine FEW /hpf (0); Nitrate,Urine NEG (NEG); Protein,Urine NEG (NEG); Specific Gravity,Urine 1.023 (1.000-1.035); Urine Blood NEG mg/dL (<0.03); Urine Hyaline Cast 304 /lpf (0-2); Urine RBC 5 /hpf (0-1); Urine Squamous Epithelial Cell 0 /hpf (0-4); Urine WBC 36 /hpf (0-4); Urobilinogen,Urine NEG (NEG)
[2017-06-06] MEDS: methylPREDNISolone SOD SUCC 125 MG/2 ML VIAL IV SCH ×2 (12:49→21:53)
[2017-06-06] MEDS: PIPERACILLIN SODIUM/TAZOBACTAM 2.25 GM in DEXTROSE 5% IN WATER 50 ML IV SCH ×2 (12:50→17:49)
[2017-06-06] MEDS: INSULIN LISPRO 1 UNIT/0.01 ML UNIT SQ SCH ×3 (12:54→21:53)
--- NOTE | 2017-06-06 12:58 | Ultrasound Report ---
CLINICAL INFORMATION: Renal failure COMPARISON: Abdominal CT from 02/11/2016 FINDINGS: Both kidneys are normal and symmetric in size, position, configuration and echotexture: The right is 11 x 6.5 cm and the left is 12.4 x 5.7 cm. A 4 cm simple cyst inferior pole the left kidney is unchanged from prior CT. No solid lesions, evidence of stone or hydronephrosis. Arterial blood flow is grossly normal to both kidneys on color/ spectral Doppler. A Milner catheter is properly position within the urinary bladder which was empty. No gross bladder abnormalities IMPRESSION: 4 cm simple cyst - inferior pole the left kidney stable since the CT 1.5 years ago. No significant abnormality Interpreted and Authenticated by: Jeremi Alonzo 06/06/17
--- NOTE | 2017-06-06 13:08 | XRay Report ---
CLINICAL INFORMATION: Shortness of breath COMPARISON: 03/14/2017 FINDINGS: Borderline cardiomegaly is unchanged. Mediastinum and pulmonary vessels are normal. Moderate right basilar infiltrate is progressed in the right mid and lower lung. Minor left basilar atelectasis noted. No definite effusion IMPRESSION: Moderate right basilar infiltrate progressing. Minor left basilar atelectasis Interpreted and Authenticated by: Jeremi Alonzo 06/06/17
--- NOTE | 2017-06-06 13:20 | Internal Med History&Physical ---
Medical - H&P: [facility] Patient information: Note initiated : 06/06/17 at 1:17 pm Service Date, if different from initiated Date: [] Patient: Luis De Leon 66 y/o M admitted on 06/06/17 for unsteady, confused, cough. Chief Complaint: [] History of present illness: Mr. De Leon is a 66 year old Male with history of chronic obstructive pulmonary disease, diabetes, recurrent pneumonias, chronic pain issues. He presented to the ER this morning because of altered mental status and not being himself. The patient, according to his had been to see the fixture relamper yesterday when he was doing well until later in the day. The patient started with it more confused in the evening. This morning the patient's confusion persisted and he was not acting himself. His , therefore, brought him to the hospital for further management. The patient is drowsy and confused and not able to provide a decent history. At this time. He is also undergoing BiPAP therapy. In the emergency room, the patient had a normal white count, however, had a low blood pressure, chest x-ray suggestive of right lung pneumonia, his ABG shows respiratory acidosis. The patient was placed admitted to the ICU for further management. Placed on BiPAP. Started on IV vancomycin and Zosyn after reaching the unit. He was given Rocephin and Zithromax in the past. The patient denies any other symptoms through the BiPAP, denies taking extra pain pills. Not sure what happened, but seems like this time. His pneumonia is more severe than before. The patient has had recurrent pneumonias. For the last few years, has underwent CT chest in the past which was normal. I reviewed the pulmonary notes , and the pulmonary service may be consulted on Thursday. ROS unobtainable: due to mental status Medical - H&P: [facility] Medical history: Medical History (Last Updated 06/05/17 @ 11:28 by Baljeet Lazo MD) Acute respiratory failure with hypoxia (Acute) COPD exacerbation (Acute) Laceration (Acute) Laryngitis (Acute) Parotid gland pain (Acute) Pneumonia (Acute) Abnormal chest xray (Chronic) Acute bronchitis (Chronic) Acute cholecystitis with chronic cholecystitis (Chronic) Anemia (Chronic) Anxiety (Chronic) Arthritis (Chronic) Aspiration pneumonia due to food (regurgitated) (Chronic) Back pain (Chronic) Bronchitis (Chronic) COPD (chronic obstructive pulmonary disease) (Chronic) COPD exacerbation (Chronic) COPD with exacerbation (Chronic) Chest pain (Chronic) Cholecystitis (Chronic) Chronic back pain (Chronic) Chronic pain due to trauma (Chronic) Costochondritis (Chronic) Cough (Chronic) Cough with hemoptysis (Chronic) Crushing injury of pelvis (Chronic) Degenerative joint disease (Chronic) Depressive disorder (Chronic) Diabetes mellitus (Chronic) Diabetes mellitus, type II (Chronic) Dizziness (Chronic) Esophageal reflux (Chronic) Fatigue (Chronic) Gallstones and inflammation of gallbladder without obstruction (Chronic) HTN (hypertension) (Chronic) Heartburn (Chronic) Hemoptysis (Chronic) History of melena (Chronic) Hyperlipidemia (Chronic) Hypertension, essential (Chronic) Impetigo (Chronic) Interstitial cystitis (Chronic) Left pulmonary infiltrate on CXR (Chronic) Loose stools (Chronic) Mass of adrenal gland (Chronic) Nausea and vomiting (Chronic) Neuropathy (Chronic) Orthostatic hypotension (Chronic) Overweight (Chronic) Painful respiration (Chronic) Post-op pain (Chronic) Postural lightheadedness (Chronic) Pulmonary infiltrate (Chronic) Radicular pain of sacrum (Chronic) Recurrent pneumonia (Chronic) Rhinitis (Chronic) Right pulmonary infiltrate on CXR (Chronic) Right upper quadrant abdominal pain (Chronic) Schatzki's ring (Chronic) Sexual dysfunction (Chronic) Sleep apnea (Chronic) Spondylolysis of lumbar region (Chronic) Testicular pain (Chronic) Testosterone deficiency (Chronic) Thrush (Chronic) Uncontrolled diabetes mellitus (Chronic) Upper respiratory infection (Chronic) Urinary frequency (Chronic) Urinary incontinence (Chronic) Urinary retention with incomplete bladder emptying (Chronic) Urinary retention with incomplete bladder emptying (Chronic) Wrist pain (Chronic) Abdominal pain (Resolved) History of pneumonia (Resolved) Leukocytosis (Resolved) Small bowel obstruction (Resolved) Surgical history: Past Surgical History (Last Reviewed 06/05/17 @ 10:46 by Brooke Coffey RN) History of shoulder surgery (Acute) Esophageal dilatation (Chronic) History of cholecystectomy (Chronic) History of colonoscopy (Chronic) History of esophagogastroduodenoscopy (Chronic) History of hip surgery (Chronic) S/P cholecystectomy (Chronic 01/02/16) History of shoulder surgery (Inactive) Open pelvic fracture (Inactive) Pertinent family history: Family History (Last Reviewed 06/05/17 @ 10:47 by Brooke Coffey RN) Unknown No pertinent family history Medical - H&P: Meds Home Medications Medication Instructions Recorded Confirmed Type Aspirin 81 mg PO DAILY 06/06/17 06/06/17 History Carvedilol [Coreg] 12.5 mg PO QAC 06/06/17 06/06/17 History Citalopram [Celexa] 40 mg PO DAILY 06/06/17 06/06/17 History Famotidine [Pepcid] 20 mg PO DAILY 06/06/17 06/06/17 History Fish Oil 1,000 mg PO DAILY 06/06/17 06/06/17 History Multivit,Ther Iron,Ca,FA & Min 1 tab PO DAILY 06/06/17 06/06/17 History [Multivitamin W/Minerals] Omeprazole [PriLOSEC] 40 mg PO ACB 06/06/17 06/06/17 History Ondansetron HCl [Zofran] 4 mg PO Q4-6H PRN 06/06/17 06/06/17 History Oxybutynin Chloride [Ditropan Xl] 15 mg PO DAILY 06/06/17 06/06/17 History Pioglitazone [Actos] 30 mg PO DAILY 06/06/17 06/06/17 History Ranitidine HCl [Zantac] 300 mg PO QHS 06/06/17 06/06/17 History Repaglinide [Prandin] 4 mg PO TID 06/06/17 06/06/17 History Spironolactone [Aldactone] 25 mg PO DAILY 06/06/17 06/06/17 History Tamsulosin [Flomax] 0.4 mg PO DAILY 06/06/17 06/06/17 History metFORMIN [Glucophage] 500 mg PO BIDCC 06/06/17 06/06/17 History morphine 30 mg PO BID 06/06/17 06/06/17 History morphine [Ms Contin] 100 mg PO BID 06/06/17 06/06/17 History Allergies Allergy/AdvReac Type Severity Reaction Status Date / Time No Known Drug Allergies Allergy Verified 06/05/17 10:22 Medical - H&P: Exam - Constitutional Vitals: Temp Pulse Resp BP Pulse Ox 100 F H 57 L 14 100/55 95 06/06/17 10:40 06/06/17 13:14 06/06/17 13:14 06/06/17 13:02 06/06/17 13:14 Exam: GENERAL: The patient is a well-developed, well-nourished drowsy and sleepy, in bipap, but does not appear in distress. VITAL SIGNS: Reviewed and as noted elsewhere. HEENT: Head is normocephalic and atraumatic. Extraocular muscles are intact. Pupils are equal, round, and reactive to light. Nares appeared normal. Mouth appears any without lesions. Mucous membranes are dry NECK: Normal to inspection, Supple, No lymphadenopathy or thyromegaly. LUNGS: Air entry equal on both sides, but decreased, mild exp wheezing. in bipap , no accessory muscle use. HEART: Regular rate and rhythm normal, S1 and S2 heard, no Gallop, S3 or Rub Noted, No Gross murmur heard. ABDOMEN: Soft, nontender, and nondistended. Positive bowel sounds. No hepatosplenomegaly was noted. EXTREMITIES: No cyanosis, clubbing, rash, lesions or edema. NEUROLOGIC: Cranial nerves II through XII are grossly intact. Motor and Sensory System Grossly Intact PSYCHIATRIC: Normal affect, Normal Mood. Appropriate Behavior. SKIN: No ulceration or wounds noted, No jaundice, No rash noted. Medical - H&P: Reslt - Labs CBC & Chem 7: 06/06/17 08:35 06/06/17 08:35 Labs: Urine 06/06/17 Range/Units 11:09 Urine Color Yellow Urine Appearance Hazy Urine pH 5.0 (5.0-9.0) Ur Specific [place] 1.023 (1.000-1.035) Urine Protein Neg (NEG) mg/dL Urine Glucose (UA) 50 A (NEG) mg/dL Medical - H&P: A/P - Narrative A/P Narrative: assessment Sepsis with Septic Shock: acute hypoxic resp failure Acute hypercapenic resp failure Pneumonia, hcap DM, type 2 on insulin. chr back pain Depression GERD And reflux Acute kindney injury, likely pre renal COPD exacerbation Plan IV bolus fluids to keep map > 65, start pressors if needed IV fluids blood culture, sputum cx ua ordered cao in place to measure urine output bipap, set at 14/16, rate 14, fio2 30 IV vanco and zosyn for now Hold long acting pain meds given poor mental status glucose to be managed with sliding scale insulin Duonebs, IV steroids for copd DVT hep sq Diet cardiac Full code. Critical care time spent 65 mins, reviewing chart, coordinating care, management of bipap, reviewing labs, X ray and abg. Medical - H&P: Qual - VTE Deep Vein Thrombosis/Pulmonary Embolism Present on Admission: No Social History - Tobacco smoking status: Unknown if ever smoked - Quit Details quit date: 12/26/05 pack-years: 40 - Alcohol alcohol intake frequency: does not drink - Substance use substance use type: does not use
[2017-06-06] MEDS: 0.9 % SODIUM CHLORIDE 10 ML SYRINGE IV SCH ×2 (13:52→21:54)
[2017-06-06] MEDS ORDERED: VANCOMYCIN 1,500 MG in 0.9 % SODIUM CHLORIDE 500 ML IV ONE (15:00)
[2017-06-06] MEDS: HEPARIN 5,000 UNIT/ML VIAL SQ SCH (21:53)
[2017-06-07] MEDS: PIPERACILLIN SODIUM/TAZOBACTAM 2.25 GM in DEXTROSE 5% IN WATER 50 ML IV SCH ×3 (00:04→12:00)
[2017-06-07] MEDS: HYDROmorphone 2 MG/ML SYRINGE IV PRN ×4 (02:21→18:49)
[2017-06-07] MEDS: 0.9 % SODIUM CHLORIDE 1,000 ML IV SCH (03:26)
[2017-06-07] MEDS: IPRATROPIUM/ALBUTEROL 3 ML AMPUL.NEB NEB SCH ×6 (03:45→22:37)
[2017-06-07 05:02] LABS: Basophils # (Auto) 0 K/mcL (0.0-0.3); Basophils % (Auto) 0 % (0.0-2.0); Eosinophils # (Auto) 0.1 K/mcL (0.0-0.7); Eosinophils % (Auto) 0.6 % (0.0-7.0); Granulocytes % (Auto) 89.1 % (38.0-78.0); Lymphocytes # (Auto) 0.8 K/mcL (1.5-4.8); Lymphocytes % (Auto) 9.3 % (15.5-49.0); Mean Corpuscular HGB Conc 32.6 g/dL (31.0-36.0); Mean Corpuscular Hemoglobin 28.3 pg (26.0-34.0); Monocytes # (Auto) 0.1 K/mcL (0.1-0.9); Platelet Count 184 K/mcL (140-440); RBC 4.11 M/mcL (4.50-5.90); Red Cell Distribution Width 14.7 % (11.5-14.5)
[2017-06-07 05:26] LABS: ALT/SGPT 11 U/l (0-40); Alkaline Phosphatase 89 U/L (39-117); Bilirubin,Direct < 0.2 mg/dL (0.0-0.3); Blood Urea Nitrogen 40 mg/dl (8-23); Gamma Glutamyl Transpeptidase 8 U/L (8-61)
[2017-06-07] MEDS: methylPREDNISolone SOD SUCC 125 MG/2 ML VIAL IV SCH ×3 (05:38→23:30)
[2017-06-07] MEDS: 0.9 % SODIUM CHLORIDE 10 ML SYRINGE IV SCH ×3 (05:39→23:30)
[2017-06-07] MEDS ORDERED: OMEPRAZOLE 20 MG CAPSULE PO SCH (07:30)
[2017-06-07 07:47] LABS: Vancomycin,Random 7.8 ug/ml
[2017-06-07] MEDS: INSULIN LISPRO 1 UNIT/0.01 ML UNIT SQ SCH ×5 (08:55→21:36)
[2017-06-07] MEDS: FAMOTIDINE 20 MG TABLET PO SCH (08:57)
[2017-06-07] MEDS: HEPARIN 5,000 UNIT/ML VIAL SQ SCH ×2 (08:57→21:18)
[2017-06-07] MEDS ORDERED: FISH OIL 1,000 MG CAPSULE PO SCH (09:00)
[2017-06-07] MEDS ORDERED: PIOGLITAZONE 15 MG TABLET PO SCH (09:00)
[2017-06-07] MEDS ORDERED: ASPIRIN 81 MG TAB.CHEW PO SCH (09:00)
[2017-06-07] MEDS ORDERED: CITALOPRAM 20 MG TABLET PO SCH (09:00)
[2017-06-07] MEDS ORDERED: OXYBUTYNIN CHLORIDE 5 MG TAB.XL.24H PO SCH (09:00)
[2017-06-07] MEDS ORDERED: MULTIVIT,THER IRON,CA,FA & MIN 1 TABLET PO SCH (09:00)
[2017-06-07] MEDS ORDERED: TAMSULOSIN 0.4 MG CAPSULE PO SCH (09:00)
[2017-06-07] MEDS ORDERED: VANCOMYCIN 1,500 MG in 0.9 % SODIUM CHLORIDE 500 ML IV SCH (10:00)
[2017-06-07] MEDS ORDERED: morphine 15 MG TABLET PO PRN ×2 (12:59→21:00)
[2017-06-07] MEDS ORDERED: morphine 30 MG TAB.SR.12H PO ONE ×2 (13:01→13:55)
[2017-06-07] MEDS ORDERED: ACETAMINOPHEN 325 MG TABLET PO PRN (13:55)
[2017-06-07] MEDS ORDERED: DEXTROSE 31 GM ORAL.SUSP PO PRN (13:55)
[2017-06-07] MEDS ORDERED: NALOXONE HCL 0.4 MG/ML VIAL IV PRN (13:55)
[2017-06-07] MEDS ORDERED: DEXTROSE 50% 50 ML VIAL IV PRN (13:55)
[2017-06-07] MEDS ORDERED: MAGNESIUM HYDROXIDE 30 ML ORAL.SUSP PO PRN (13:55)
[2017-06-07] MEDS ORDERED: VANCOMYCIN PER PHARMACY IV SCH (13:55)
[2017-06-07] MEDS ORDERED: ONDANSETRON 4 MG/2 ML VIAL IV PRN (13:55)
[2017-06-07] MEDS: PIPERACILLIN SODIUM/TAZOBACTAM 3.375 GM in DEXTROSE 5% IN WATER 50 ML IV SCH ×2 (17:44→23:30)
[2017-06-07] MEDS ORDERED: PIPERACILLIN SODIUM/TAZOBACTAM 2.25 GM in DEXTROSE 5% IN WATER 50 ML IV SCH (18:00)
--- NOTE | 2017-06-07 20:45 | Internal Med Progress Note ---
Medical - PN: Subj Patient information: Note initiated : 06/07/17 at 8:43 pm Service Date, if different from initiated Date: [] Patient: Luis De Leon 66 y/o M admitted on 06/06/17 for unsteady, confused, cough. Interval history: 66 [place] history recurrent pneumonia, admitted after presenting with confusion , found to have infiltrate, elevated lactate, acute renal failure, sepsis from recurrent pneumonia. 06/07: Feels much better today. By yesterday evening, was alert and communicating with family around BiPAP mask. Has been off BiPAP since about 0700 this morning. - Constitutional Vitals: Vital Signs Temp Pulse Resp BP Pulse Ox 98.2 F 65 18 137/52 98 06/07/17 19:24 06/07/17 19:43 06/07/17 19:43 06/07/17 19:24 06/07/17 19:24 Period Temp Pulse Resp BP Sys/Shin Pulse Ox Last 24 Hr 97.2 F-98.9 F 49-70 12-25 104-166/52-105 86-100 Intake and Output 06/07/17 06/07/17 06/07/17 05:59 13:59 21:59 Intake Total 1050 / 1050 1050 / 1050 2750 / 2750 Output Total 830 / 830 1045 / 1045 1075 / 1075 Balance 220 / 220 5 / 5 1675 / 1675 Weight 230 lb Patient Weight 06/08/17 05:59 Weight 230 lb Intake & Output: Intake & Output 06/07/17 06/07/17 06/07/17 05:59 13:59 21:59 Intake Total 1050 / 1050 1050 / 1050 2750 / 2750 Output Total 830 / 830 1045 / 1045 1075 / 1075 Balance 220 / 220 5 / 5 1675 / 1675 Weight 230 lb Intake: IV 1050 / 1050 550 / 550 1550 / 1550 Sodium Chloride 0.9% 1, 1000 / 1000 000 ml @ 150 mls/hr IV . Q6H40M JS Rx#:[id number] Zosyn 2.25 gm In Dextrose 50 / 50 50 / 50 5% in Water 50 ml @ 100 mls/hr IV Q6H JS Rx#: [id number] Oral 500 / 500 1200 / 1200 Output: Urine Catheter Amount 710 / 710 1045 / 1045 Void Amount 120 / 120 1075 / 1075 Other: Meal Breakfast Lunch Percent of Meal Consumed 100% 50% # Voids 3 # Bowel Movements 1 - Additional findings Additional findings: General: Sitting up in chair in good spirits, no distress Chest: Right rales, no wheezes, mildly diminished air movement Cardiovascular: Regular, no edema Abdomen: Soft, nontender Neuro: Alert, speaking in full sentences, appropriate replies, moves all extremities. Medical - PN: Obj Da - Labs CBC & Chem 7: 06/07/17 03:49 06/07/17 03:49 Labs: Abnormal Lab Results 06/07/17 06/07/17 06/06/17 03:49 03:49 11:09 RBC 4.11 L Hgb 11.6 L Hct 35.7 L RDW 14.7 H Gran % 89.1 H Lymph % (Auto) 9.3 L Lymph # (Auto) 0.8 L Carbon Dioxide 21 L BUN 40 H Glucose 254 H Calcium 7.7 L Phosphorus 2.2 L Albumin 3.0 L Urine Glucose (UA) 50 A Urine Ketones 5/tr A Ur Leukocyte Esterase 250 A Urine RBC 5 H Urine WBC 36 H Hyaline Casts 304 H Meds: Medications Acetaminophen (Tylenol) 650 mg PO Q4-6HP PRN PRN Reason: PAIN/FEVER > 101 Albuterol/Ipratropium (Duoneb) 3 ml NEB Q4HRT [facility] Last Admin: 06/07/17 19:42 Dose: 3 ml Aspirin (Aspirin) 81 mg PO DAILY [facility] Carvedilol (Coreg) 12.[address] [facility] Citalopram Hydrobromide (Celexa) 40 mg PO DAILY [facility] Dextrose (Dextrose 50%) 0 ml IV UD PRN PRN Reason: Hypoglycemia Diagnostic Test (Pha) (Accu-Chek) 1 each FS ACHS [facility] Last Admin: 06/07/17 17:43 Dose: 1 each Famotidine (Pepcid) 20 mg PO DAILY [facility] Last Admin: 06/07/17 08:57 Dose: 20 mg Fish Oil (Fish Oil) 1,000 mg PO DAILY [facility] Glucose (Insta-Glucose) 15 gm PO PRN PRN PRN Reason: Hypoglycemia Heparin Sodium (Porcine) (Heparin) 5,000 unit SQ Q12 [facility] Hydromorphone HCl (Dilaudid) 1 mg IV Q2HP PRN PRN Reason: Pain Last Admin: 06/07/17 18:49 Dose: 1 mg Vancomycin HCl 1,500 mg/ (Sodium Chloride) 500 mls @ 333.3 mls/hr IV Q24H [facility] Piperacillin Sod/Tazobactam (Sod 3.375 gm/ Dextrose) 50 mls @ 100 mls/hr IV Q6H [facility] Last Admin: 06/07/17 17:44 Dose: 100 mls/hr Insulin Human Lispro (Humalog) 0 unit SQ ACHS [facility] PRN Reason: Protocol Last Admin: 06/07/17 17:43 Dose: 8 unit Iron Carb/Multivit/[place]/Folic Acid (Multivitamin W/Minerals) 1 tab PO DAILY [facility] Magnesium Hydroxide (Milk Of Magnesia) 30 ml PO DAILYP PRN PRN Reason: Constipation Methylprednisolone Sodium Succinate (Solu-Medrol) 62.5 mg IV Q8 [facility] Last Admin: 06/07/17 14:12 Dose: 62.5 mg Morphine Sulfate (Ms Contin) 120 mg PO BID [facility] Naloxone HCl (Narcan) 0.1 mg IV Q2MIN PRN PRN Reason: Opiate Reversal Omeprazole (Prilosec) 40 mg PO ACB [facility] Ondansetron HCl (Zofran) 4 mg IV Q4-6HP PRN PRN Reason: Nausea And Vomiting Oxybutynin Chloride (Ditropan Xl) 15 mg PO DAILY [facility] Pioglitazone HCl (Actos) 30 mg PO DAILY [facility] Sodium Chloride (Saline Flush) 10 ml IV Q8 [facility] Last Admin: 06/07/17 14:11 Dose: 10 ml Spironolactone (Aldactone) 25 mg PO DAILY [facility] Tamsulosin HCl (Flomax) 0.4 mg PO DAILY [facility] Vancomycin HCl (Vancomycin Per Pharmacy) 1 order IV UD [facility] Medical - PN: A/P - Narrative A/P Narrative: 66-year-old male admitted with sepsis with concurrent encephalopathy, acute hypercapnic respiratory failure, acute, hypoxic respiratory failure. Sepsis with septic shock, not requiring pressors. Resolving. Renal function improving blood pressure normalized. Plan: Continue current antibiotics, follow-up cultures Right lower lobe pneumonia. Had right and left lower lobe bronchiectasis on CT scan in 2014. May have predisposed to infection. Currently on broad-spectrum antibiotics, which we'll continue until culture data become available. Plan: Continue antibiotics, supplemental oxygen as needed Acute hypercapnic respiratory failure with metabolic encephalopathy. Improved. Encephalopathy has cleared. Respiratory status appears close to baseline. Plan: Continue with treatment for COPD, BiPAP as needed COPD with acute exacerbation, secondary to pneumonia. Improving. Plan: Continue with steroids and aerosols Acute kidney injury. Resolved with creatinine normalizing today. Suspect prerenal due to sepsis given abrupt response to fluids. Plan: Reduce medications were adjusted for renal function, follow creatinine. Type 2 diabetes mellitus. Plan: Continue diabetic diet, sliding scale insulin, hold metformin and acute illness Chronic back pain following fall from height several years ago. Pain medications with held initially due to encephalopathy and respiratory failure. Plan: Resume home pain regimen now that he is cleared. Gastroesophageal reflux disease Plan: Continue PPI Depression. Stable. Continue home regimen. DVT hep sq Diet cardiac Full code. Medical - PN: Qual - VTE Deep Vein Thrombosis/Pulmonary Embolism Present on Admission: No
[2017-06-07] MEDS ORDERED: morphine 100 MG TABLET.ER PO SCH (21:00)
[2017-06-07] MEDS: morphine 30 MG TAB.SR.12H PO SCH (21:18)
[2017-06-08] MEDS: IPRATROPIUM/ALBUTEROL 3 ML AMPUL.NEB NEB SCH ×6 (03:01→23:07)
[2017-06-08] MEDS: methylPREDNISolone SOD SUCC 125 MG/2 ML VIAL IV SCH (05:43)
[2017-06-08] MEDS: 0.9 % SODIUM CHLORIDE 10 ML SYRINGE IV SCH ×3 (05:44→20:25)
[2017-06-08] MEDS: PIPERACILLIN SODIUM/TAZOBACTAM 3.375 GM in DEXTROSE 5% IN WATER 50 ML IV SCH ×3 (05:44→20:03)
[2017-06-08 06:41] LABS: Basophils # (Auto) 0 K/mcL (0.0-0.3); Basophils % (Auto) 0 % (0.0-2.0); Eosinophils # (Auto) 0.1 K/mcL (0.0-0.7); Eosinophils % (Auto) 0.5 % (0.0-7.0); Granulocytes % (Auto) 89.9 % (38.0-78.0); Lymphocytes # (Auto) 0.7 K/mcL (1.5-4.8); Lymphocytes % (Auto) 6.4 % (15.5-49.0); Mean Corpuscular HGB Conc 32.9 g/dL (31.0-36.0); Mean Corpuscular Hemoglobin 28.6 pg (26.0-34.0); Monocytes # (Auto) 0.4 K/mcL (0.1-0.9); Monocytes % (Auto) 3.2 % (1.0-12.0); Platelet Count 208 K/mcL (140-440); RBC 4.18 M/mcL (4.50-5.90); Red Cell Distribution Width 15.1 % (11.5-14.5)
[2017-06-08 06:56] LABS: ALT/SGPT 11 U/l (0-40); Albumin 3.2 gm/dL (3.2-5.2); Albumin/Globulin Ratio 1.1 (1.0-2.3); Alkaline Phosphatase 88 U/L (39-117); Bilirubin,Direct < 0.2 mg/dL (0.0-0.3); Blood Urea Nitrogen 34 mg/dl (8-23); Gamma Glutamyl Transpeptidase 8 U/L (8-61); Uric Acid 5.7 mg/dL (2.5-8.0)
[2017-06-08] MEDS ORDERED: OMEPRAZOLE 20 MG CAPSULE PO SCH (07:30)
[2017-06-08] MEDS ORDERED: CARVEDILOL 12.5 MG TABLET PO SCH ×2 (08:00)
[2017-06-08] MEDS ORDERED: OXYBUTYNIN CHLORIDE 5 MG TAB.XL.24H PO SCH (09:00)
[2017-06-08] MEDS ORDERED: PIOGLITAZONE 15 MG TABLET PO SCH (09:00)
[2017-06-08] MEDS ORDERED: SPIRONOLACTONE 25 MG TABLET PO SCH ×2 (09:00)
[2017-06-08] MEDS ORDERED: CITALOPRAM 20 MG TABLET PO SCH (09:00)
[2017-06-08] MEDS ORDERED: MULTIVIT,THER IRON,CA,FA & MIN 1 TABLET PO SCH (09:00)
[2017-06-08] MEDS ORDERED: TAMSULOSIN 0.4 MG CAPSULE PO SCH (09:00)
[2017-06-08] MEDS ORDERED: ASPIRIN 81 MG TAB.CHEW PO SCH (09:00)
[2017-06-08] MEDS ORDERED: FISH OIL 1,000 MG CAPSULE PO SCH (09:00)
[2017-06-08] MEDS ORDERED: VANCOMYCIN 1,500 MG in 0.9 % SODIUM CHLORIDE 500 ML IV SCH (10:00)
[2017-06-08] MEDS: morphine 30 MG TAB.SR.12H PO SCH ×2 (10:14→20:24)
[2017-06-08] MEDS: HEPARIN 5,000 UNIT/ML VIAL SQ SCH ×2 (10:16→20:24)
[2017-06-08] MEDS: FAMOTIDINE 20 MG TABLET PO SCH (10:16)
[2017-06-08] MEDS: INSULIN LISPRO 1 UNIT/0.01 ML UNIT SQ SCH ×4 (10:26→20:03)
--- NOTE | 2017-06-08 12:20 | Internal Med Progress Note ---
Medical - PN: Subj Patient information: Note initiated : 06/08/17 at 12:08 pm Service Date, if different from initiated Date: [] Patient: Luis De Leon 66 y/o M admitted on 06/06/17 for unsteady, confused, cough. Interval history: CC: Follow-up pneumonia/sepsis 66 y/o male with history recurrent pneumonia, admitted after presenting with confusion, found to have infiltrate, elevated lactate, acute renal failure, sepsis from recurrent pneumonia. 06/07: Feels much better today. By yesterday evening, was alert and communicating with family around BiPAP mask. Has been off BiPAP since about 0700 this morning. 06/08: Feels close to baseline. Was up to shower today without significant dyspnea. Pack on room air. No chest pain. Similar to prior presentations in the past. - Constitutional Vitals: Vital Signs Temp Pulse Resp BP Pulse Ox 98.7 F 55 L 20 153/68 94 06/08/17 11:34 06/08/17 11:11 06/08/17 11:34 06/08/17 11:34 06/08/17 11:34 Period Temp Pulse Resp BP Sys/Shin Pulse Ox Last 24 Hr 97.8 F-98.9 F 55-90 15-20 137-164/52-69 94-99 Intake and Output 06/07/17 06/08/17 06/08/17 21:59 05:59 13:59 Intake Total 2800 / 2800 550 / 550 50 / 50 Output Total 1075 / 1075 650 / 650 Balance 1725 / 1725 -100 / -100 50 / 50 Weight 230 lb Intake & Output: Intake & Output 06/07/17 06/08/17 06/08/17 21:59 05:59 13:59 Intake Total 2800 / 2800 550 / 550 50 / 50 Output Total 1075 / 1075 650 / 650 Balance 1725 / 1725 -100 / -100 50 / 50 Weight 230 lb Intake: IV 1600 / 1600 50 / 50 50 / 50 Zosyn 3.375 gm In 50 / 50 50 / 50 50 / 50 Dextrose 5% in Water 50 ml @ 100 mls/hr IV Q6H [facility] Rx#:[id number] Oral 1200 / 1200 500 / 500 Output: Void Amount 1075 / 1075 650 / 650 Other: Meal Dinner Percent of Meal Consumed 50% Feeding Ability Assist with Tray Set Up # Voids 3 # Bowel Movements 1 - Additional findings Additional findings: General: Laying in bed in no acute distress Chest: Right basal crackles, otherwise clear to auscultation, good air movement , no wheezes, respirations unlabored Cardiovascular: Regular rate and rhythm, no edema Abdomen: Soft, nontender Neuro: Alert, oriented 3, nonfocal Medical - PN: Obj Da - Labs CBC & Chem 7: 06/08/17 03:34 06/08/17 03:34 Labs: Abnormal Lab Results 06/08/17 06/08/17 06/07/17 03:34 03:34 03:49 WBC 11.3 H RBC 4.18 L Hgb 12.0 L Hct 36.3 L RDW 15.1 H Gran % 89.9 H Lymph % (Auto) 6.4 L Gran # 10.2 H Lymph # (Auto) 0.7 L Carbon Dioxide 21 L BUN 34 H 40 H Glucose 273 H 254 H Calcium 8.2 L 7.7 L Phosphorus 1.7 L 2.2 L Albumin 3.0 L Urine Glucose (UA) Urine Ketones Ur Leukocyte Esterase Urine RBC Urine WBC Hyaline Casts 06/07/17 06/06/17 03:49 11:09 WBC RBC 4.11 L Hgb 11.6 L Hct 35.7 L RDW 14.7 H Gran % 89.1 H Lymph % (Auto) 9.3 L Gran # Lymph # (Auto) 0.8 L Carbon Dioxide BUN Glucose Calcium Phosphorus Albumin Urine Glucose (UA) 50 A Urine Ketones 5/tr A Ur Leukocyte Esterase 250 A Urine RBC 5 H Urine WBC 36 H Hyaline Casts 304 H Meds: Medications Acetaminophen (Tylenol) 650 mg PO Q4-6HP PRN PRN Reason: PAIN/FEVER > 101 Albuterol/Ipratropium (Duoneb) 3 ml NEB Q4HRT [facility] Last Admin: 06/08/17 11:10 Dose: 3 ml Aspirin (Aspirin) 81 mg PO DAILY [facility] Last Admin: 06/08/17 10:14 Dose: 81 mg Carvedilol (Coreg) 12.[address] mg [address] [facility] Last Admin: 06/08/17 10:17 Dose: Not Given Citalopram Hydrobromide (Celexa) 40 mg PO DAILY [facility] Last Admin: 06/08/17 10:14 Dose: 40 mg Dextrose (Dextrose 50%) 0 ml IV UD PRN PRN Reason: Hypoglycemia Diagnostic Test (Pha) (Accu-Chek) 1 each FS ACHS [facility] Last Admin: 06/08/17 11:54 Dose: 1 each Famotidine (Pepcid) 20 mg PO DAILY [facility] Last Admin: 06/08/17 10:16 Dose: 20 mg Fish Oil (Fish Oil) 1,000 mg PO DAILY [facility] Last Admin: 06/08/17 10:13 Dose: 1,000 mg Glucose (Insta-Glucose) 15 gm PO PRN PRN PRN Reason: Hypoglycemia Heparin Sodium (Porcine) (Heparin) 5,000 unit SQ Q12 [facility] Last Admin: 06/08/17 10:16 Dose: 5,000 unit Hydromorphone HCl (Dilaudid) 1 mg IV Q2HP PRN PRN Reason: Pain Last Admin: 06/07/17 18:49 Dose: 1 mg Vancomycin HCl 1,500 mg/ (Sodium Chloride) 500 mls @ 333.3 mls/hr IV Q24H [facility] Last Admin: 06/08/17 10:27 Dose: 333.3 mls/hr Piperacillin Sod/Tazobactam (Sod 3.375 gm/ Dextrose) 50 mls @ 100 mls/hr IV Q6H [facility] Last Infusion: 06/08/17 06:15 Dose: Infused Insulin Human Lispro (Humalog) 0 unit SQ ACHS [facility] PRN Reason: Protocol Last Admin: 06/08/17 11:54 Dose: 6 unit Iron Carb/Multivit/[place]/Folic Acid (Multivitamin W/Minerals) 1 tab PO DAILY [facility] Last Admin: 06/08/17 10:16 Dose: 1 tab Magnesium Hydroxide (Milk Of Magnesia) 30 ml PO DAILYP PRN PRN Reason: Constipation Methylprednisolone Sodium Succinate (Solu-Medrol) 62.5 mg IV Q8 [facility] Last Admin: 06/08/17 05:43 Dose: 62.5 mg Morphine Sulfate (Ms Contin) 120 mg PO BID [facility] Last Admin: 06/08/17 10:14 Dose: 120 mg Naloxone HCl (Narcan) 0.1 mg IV Q2MIN PRN PRN Reason: Opiate Reversal Omeprazole (Prilosec) 40 mg PO ACB [facility] Last Admin: 06/08/17 10:15 Dose: 40 mg Ondansetron HCl (Zofran) 4 mg IV Q4-6HP PRN PRN Reason: Nausea And Vomiting Oxybutynin Chloride (Ditropan Xl) 15 mg PO DAILY [facility] Last Admin: 06/08/17 10:13 Dose: 15 mg Pioglitazone HCl (Actos) 30 mg PO DAILY [facility] Last Admin: 06/08/17 10:13 Dose: 30 mg Sodium Chloride (Saline Flush) 10 ml IV Q8 [facility] Last Admin: 06/08/17 05:44 Dose: 10 ml Spironolactone (Aldactone) 25 mg PO DAILY [facility] Last Admin: 06/08/17 10:15 Dose: 25 mg Tamsulosin HCl (Flomax) 0.4 mg PO DAILY [facility] Last Admin: 06/08/17 10:16 Dose: 0.4 mg Vancomycin HCl (Vancomycin Per Pharmacy) 1 order IV UD [facility] Medical - PN: A/P - Narrative A/P Narrative: 66-year-old male admitted with sepsis with concurrent encephalopathy, acute hypercapnic respiratory failure, acute, hypoxic respiratory failure. Sepsis with septic shock, did not requiring pressors. Resolved. Cultures negative to date. Renal function improving blood pressure normalized/becoming elevated. Plan: D/C vancomycin, otherwise continue antibiotics, follow-up cultures Right lower lobe pneumonia. Had right and left lower lobe bronchiectasis on CT scan in 2014. May have predisposed to infection. Currently on broad-spectrum antibiotics, which we'll continue until culture data become available. Plan: D/C vancomycin, continue other antibiotics; Med/Surg status Acute hypercapnic respiratory failure with metabolic encephalopathy. Resolved. On room air. Encephalopathy resolved. Respiratory status appears close to baseline. Plan: Continue with treatment for COPD, BiPAP as needed COPD with acute exacerbation, secondary to pneumonia. Improving. Plan: De-escalate steroids, continue with aerosols Acute kidney injury. Resolved with creatinine normalized, baseline 0.9-1.0 over past year. Suspect prerenal due to sepsis given abrupt response to fluids. Plan: Continue to follow creatinine. Type 2 diabetes mellitus. Plan: Continue diabetic diet, sliding scale insulin, hold metformin and acute illness Chronic back pain following fall from height several years ago. Pain medications with held initially due to encephalopathy and respiratory failure. Plan: Resume home pain regimen now that he is cleared. Gastroesophageal reflux disease Plan: Continue PPI Depression. Stable. Continue home regimen. DVT hep sq Diet cardiac Full code. Medical - PN: Qual - VTE Deep Vein Thrombosis/Pulmonary Embolism Present on Admission: No
[2017-06-08] MEDS ORDERED: cloNIDine HCL 0.1 MG TABLET PO PRN (12:27)
[2017-06-08] MEDS: HYDROmorphone 2 MG/ML SYRINGE IV PRN (12:28)
[2017-06-08] MEDS ORDERED: HYDROmorphone 2 MG/ML SYRINGE IV PRN (12:40)
[2017-06-08] MEDS ORDERED: ACETAMINOPHEN 325 MG TABLET PO PRN (12:40)
[2017-06-08] MEDS ORDERED: DEXTROSE 31 GM ORAL.SUSP PO PRN (12:40)
[2017-06-08] MEDS ORDERED: MAGNESIUM HYDROXIDE 30 ML ORAL.SUSP PO PRN (12:40)
[2017-06-08] MEDS ORDERED: NALOXONE HCL 0.4 MG/ML VIAL IV PRN (12:40)
[2017-06-08] MEDS ORDERED: DEXTROSE 50% 50 ML VIAL IV PRN (12:40)
[2017-06-08] MEDS ORDERED: ONDANSETRON 4 MG/2 ML VIAL IV PRN (12:40)
[2017-06-08] MEDS: cloNIDine HCL 0.1 MG TABLET PO PRN (17:23)
[2017-06-08] MEDS ORDERED: CARVEDILOL 6.25 MG TABLET PO SCH (17:30)
[2017-06-08] MEDS: CARVEDILOL 6.25 MG TABLET PO SCH (20:04)
[2017-06-09] MEDS: PIPERACILLIN SODIUM/TAZOBACTAM 3.375 GM in DEXTROSE 5% IN WATER 50 ML IV SCH ×3 (00:04→11:29)
[2017-06-09] MEDS: IPRATROPIUM/ALBUTEROL 3 ML AMPUL.NEB NEB SCH ×3 (02:07→10:28)
[2017-06-09] MEDS: 0.9 % SODIUM CHLORIDE 10 ML SYRINGE IV SCH ×2 (06:06→15:11)
[2017-06-09 06:12] LABS: Basophils # (Auto) 0 K/mcL (0.0-0.3); Basophils % (Auto) 0.1 % (0.0-2.0); Eosinophils # (Auto) 0.1 K/mcL (0.0-0.7); Eosinophils % (Auto) 0.8 % (0.0-7.0); Granulocytes % (Auto) 79.3 % (38.0-78.0); Lymphocytes # (Auto) 1.2 K/mcL (1.5-4.8); Lymphocytes % (Auto) 10.3 % (15.5-49.0); Mean Cell Volume 86.2 fL (80.0-100.0); Mean Corpuscular HGB Conc 33.1 g/dL (31.0-36.0); Mean Corpuscular Hemoglobin 28.5 pg (26.0-34.0); Monocytes # (Auto) 1.1 K/mcL (0.1-0.9); Monocytes % (Auto) 9.5 % (1.0-12.0); Platelet Count 216 K/mcL (140-440); RBC 3.99 M/mcL (4.50-5.90); Red Cell Distribution Width 14.8 % (11.5-14.5)
[2017-06-09 06:28] LABS: ALT/SGPT 9 U/l (0-40); Albumin 3.1 gm/dL (3.2-5.2); Albumin/Globulin Ratio 1.2 (1.0-2.3); Alkaline Phosphatase 85 U/L (39-117); Bilirubin,Direct < 0.2 mg/dL (0.0-0.3); Blood Urea Nitrogen 24 mg/dl (8-23); Gamma Glutamyl Transpeptidase 11 U/L (8-61); Magnesium 1.6 mg/dL (1.6-2.5); Uric Acid 5.4 mg/dL (2.5-8.0)
[2017-06-09] MEDS: morphine 30 MG TAB.SR.12H PO SCH (07:12)
[2017-06-09] MEDS: INSULIN LISPRO 1 UNIT/0.01 ML UNIT SQ SCH ×2 (07:21→14:50)
[2017-06-09] MEDS: HEPARIN 5,000 UNIT/ML VIAL SQ SCH (07:24)
[2017-06-09] MEDS: CARVEDILOL 6.25 MG TABLET PO SCH (07:26)
[2017-06-09] MEDS ORDERED: OMEPRAZOLE 20 MG CAPSULE PO SCH (07:30)
[2017-06-09] MEDS ORDERED: predniSONE 20 MG TABLET PO SCH ×2 (08:00)
[2017-06-09] MEDS ORDERED: FISH OIL 1,000 MG CAPSULE PO SCH (09:00)
[2017-06-09] MEDS ORDERED: TAMSULOSIN 0.4 MG CAPSULE PO SCH (09:00)
[2017-06-09] MEDS ORDERED: FAMOTIDINE 20 MG TABLET PO SCH (09:00)
[2017-06-09] MEDS ORDERED: SPIRONOLACTONE 25 MG TABLET PO SCH (09:00)
[2017-06-09] MEDS ORDERED: MULTIVIT,THER IRON,CA,FA & MIN 1 TABLET PO SCH (09:00)
[2017-06-09] MEDS ORDERED: PIOGLITAZONE 15 MG TABLET PO SCH (09:00)
[2017-06-09] MEDS ORDERED: ASPIRIN 81 MG TAB.CHEW PO SCH (09:00)
[2017-06-09] MEDS ORDERED: CITALOPRAM 20 MG TABLET PO SCH (09:00)
[2017-06-09] MEDS ORDERED: OXYBUTYNIN CHLORIDE 5 MG TAB.XL.24H PO SCH (09:00)
[2017-06-09] MEDS ORDERED: POTASSIUM PHOSPHATE 40 MEQ in DEXTROSE 5% IN WATER 500 ML IV ONE (10:13)
[2017-06-09] MEDS ORDERED: IPRATROPIUM/ALBUTEROL 3 ML AMPUL.NEB NEB PRN (10:48)
[2017-06-09] MEDS: cloNIDine HCL 0.1 MG TABLET PO PRN (12:11)
--- NOTE | 2017-06-09 15:17 | Discharge Summary ---
Medical - DS: Prov Patient information: Note initiated : 06/09/17 at 3:16 pm Service Date, if different from initiated Date: [] Patient: Luis De Leon 66 y/o M admitted on 06/06/17 for Unsteady, Confused, Cough/Pneumonia, Sepsis. Date of admission: 06/06/17 10:30 Discharge date: 06/09/17 Primary care physician: Cesar Llanos Attending physician on admission: Susan Eden Attending physician on discharge: Shanti Rodrigeuz Medical - DS: Meds - Discharge Medications Prescriptions: amLODIPine [Norvasc] 5 mg PO DAILY #30 tablet Carvedilol [Coreg] 6.25 mg PO BIDCC #60 tablet predniSONE [Prednisone] 40 [facility] [place] [facility] [place] Active and Home Medications: Home Medications Aspirin 81 mg PO DAILY 06/06/17 [History Confirmed 06/06/17 Last Taken Unknown] Carvedilol [Coreg] 12.5 mg PO QAC 06/06/17 [History Confirmed 06/06/17 Last Taken Unknown] Citalopram [Celexa] 40 mg PO DAILY 06/06/17 [History Confirmed 06/06/17 Last Taken Unknown] Famotidine [Pepcid] 20 mg PO DAILY 06/06/17 [History Confirmed 06/06/17 Last Taken Unknown] Fish Oil 1,000 mg PO DAILY 06/06/17 [History Confirmed 06/06/17 Last Taken Unknown] Multivit,Ther Iron,Ca,FA & Min [Multivitamin W/Minerals] 1 tab PO DAILY [History Confirmed 06/06/17 Last Taken Unknown] Omeprazole [PriLOSEC] 40 mg PO ACB 06/06/17 [History Confirmed 06/06/17 Last Taken Unknown] Ondansetron HCl [Zofran] 4 mg PO Q4-6H PRN 06/06/17 [History Confirmed 06/06/17 Last Taken Unknown] Oxybutynin Chloride [Ditropan Xl] 15 mg PO DAILY 06/06/17 [History Confirmed 10/11 Last Taken Unknown] Pioglitazone [Actos] 30 mg PO DAILY 06/06/17 [History Confirmed 06/06/17 Last Taken Unknown] Ranitidine HCl [Zantac] 300 mg PO QHS 06/06/17 [History Confirmed 06/06/17 Last Taken Unknown] Repaglinide [Prandin] 4 mg PO TID 06/06/17 [History Confirmed 06/06/17 Last Taken Unknown] Spironolactone [Aldactone] 25 mg PO DAILY 06/06/17 [History Confirmed 06/06/17 Last Taken Unknown] Tamsulosin [Flomax] 0.4 mg PO DAILY 06/06/17 [History Confirmed 06/06/17 Last Taken Unknown] metFORMIN [Glucophage] 500 mg PO BIDCC 06/06/17 [History Confirmed 06/06/17 Last Taken Unknown] morphine 30 mg PO BID 06/06/17 [History Confirmed 06/06/17 Last Taken Unknown] morphine [Ms Contin] 100 mg PO BID 06/06/17 [History Confirmed 06/06/17 Last Taken Unknown] Medical - DS: Hosp Hospital course: 66 y/o male with history recurrent pneumonia, admitted after presenting with confusion, found to have infiltrate, elevated lactate, acute renal failure, sepsis from recurrent pneumonia. Patient also had acute hypoxic and hypercapnic respiratory failure, required BiPAP therapy throughout the afternoon and overnight of the first hospital day. He required fluid resuscitation, but did not require pressors. He had acute kidney injury at presentation with creatinine of 3.2. That normalized over the next 36 hours with fluid resuscitation and treatment of sepsis. By the next hospital day he is feeling significantly improved, was off of BiPAP from breakfast onward. The next day, his respiratory failure resolved, no longer required BiPAP for over 24 hours and his oxygen requirements resolved and he is breathing well on room air. Blood cultures were canceled for some reason, however antibiotics were de-escalate his vancomycin was stopped. He remained on Zosyn. His treated for healthcare acquired pneumonia due to his frequent healthcare contacts. On the day of discharge, the patient is feeling well he is saturating normally on room air. He'll be converted to levofloxacin can to continue a course of oral antibiotics. During his hospitalization, with his normal dose of carvedilol resumed, his pulse fell into the 30s without symptoms, this was at night while sleeping. His carvedilol dose was reduced to 6.25 mg. His blood pressure remained elevated, amlodipine 5 mg a day was prescribed. Blood pressure should be rechecked at follow-up. Patient has a history of recurrent pneumonias with rapid onset of septic symptoms. He recently established with Dr. Lazo in pulmonary. CT scan reports were reviewed, he does have a history of bronchiectatic changes in both lower lobes. This may predispose him to recurrent infection. He did present with sepsis at this point, presumptively from an infectious cause and not from a noninfectious pulmonary cause. I've encouraged him to follow up with Dr. Lazo. Discharge diagnosis: Pneumonia, right lower lobe Secondary discharge diagnosis: Sepsis, resolved Acute hypercapneic and hypoxic respiratory failure, resolved COPD with acute exacerbation, secondary to pneumonia. Improving. Acute kidney injury from sepsis, resolved Type 2 diabetes mellitus Chronic back pain, stable Gastroesophageal reflux disease Depression - Time Spent with Patient Total time spent providing and/or coordinating discharge services: Greater than 30 minutes Medical - DS: Exam - Constitutional Vitals: Vital Signs Temp Pulse Pulse Resp BP BP Pulse Ox 06/09/17 12:00 98.2 F 16 183/68 89 L 06/09/17 10:52 88 18 92 06/09/17 10:25 88 16 06/09/17 07:50 98.4 F 67 16 180/72 90 06/09/17 07:42 93 06/09/17 07:41 64 16 06/09/17 04:00 98.8 F 67 16 174/63 97 06/08/17 23:33 98.4 F 60 16 160/56 95 06/08/17 23:12 60 16 06/08/17 20:00 97.4 F 66 16 145/52 97 06/08/17 19:28 65 16 06/08/17 19:23 97 06/08/17 16:00 97.6 F 62 20 180/66 94 06/08/17 15:39 61 20 06/08/17 15:36 93 06/08/17 15:35 93 Intake and Output 06/09/17 06/09/17 06/09/17 05:59 13:59 21:59 Intake Total 650 / 650 690 / 690 Output Total 1625 / 1625 Balance -975 / -975 690 / 690 Intake: IV 50 / 50 50 / 50 Zosyn 3.375 gm In 50 / 50 50 / 50 Dextrose 5% in Water 50 ml @ 100 mls/hr IV Q6H [facility] Rx#:[id number] Oral 600 / 600 640 / 640 Output: Void Amount 1625 / 1625 Other: Meal Lunch Percent of Meal Consumed Refused Feeding Ability Independent # Voids 3 - Other Additional findings: General: Laying in bed, comfortable Chest: Clear, no rales in the right base, no wheezes or rhonchi Cardiovascular: Regular, no edema Abdomen: Soft Neuro: Alert, oriented, nonfocal Medical - DS: Data Labs on day of discharge: Labs from last 24 hours 06/09/17 06/09/17 04:23 04:23 WBC 11.5 H RBC 3.99 L Hgb 11.4 L Hct 34.4 L MCV 86.2 MCH 28.5 MCHC 33.1 RDW 14.8 H Plt Count 216 MPV 8.6 Gran % 79.3 H Lymph % (Auto) 10.3 L Blaine % (Auto) 9.5 Eos % (Auto) 0.8 Baso % (Auto) 0.1 Gran # 9.1 H Lymph # (Auto) 1.2 L Blaine # (Auto) 1.1 H Eos # (Auto) 0.1 Baso # (Auto) 0 Sodium 140 Potassium 4.0 Chloride 105 Carbon Dioxide 26 Anion Gap 9.0 BUN 24 H Creatinine 0.9 GFR Calculation 89 Glucose 191 H Uric Acid 5.4 Calcium 8.2 L Phosphorus 1.3 L Magnesium 1.6 Total Bilirubin 0.3 Direct Bilirubin < 0.2 GGT 11 AST 10 ALT 9 Alkaline Phosphatase 85 Lactate Dehydrogenase 156 Total Protein 5.7 L Albumin 3.1 L Globulin 2.6 Albumin/Globulin Ratio 1.2 Triglycerides 129 - Imaging and Cardiology Chest x-ray Additional comments: At admission, IMPRESSION: Moderate right basilar infiltrate progressing. Minor left basilar atelectasis Medical - DS: A/P - Patient/Caregiver Discharge Instructions Activity: increase activity as tolerated Diet: Consistent Carbohydrate Additional Instructions: Please follow-up with Dr. Lazo next available in addition to Dr. Llanos in 7-10 days. - Follow up Plan Follow up with: Cesar Llanos DO [Primary Care Provider] - Baljeet Lazo MD [Physician] - Disposition: Home, Self-Care Prognosis: Good Rehab Potential: Good Overall status at discharge: patient is progressing back to baseline Medical - DS: Qual - VTE Deep Vein Thrombosis/Pulmonary Embolism Present on Admission: No
[2017-06-09] MEDS ORDERED: amLODIPine 5 MG TABLET PO SCH (15:26)
== END 2017-06-09 17:12 | disposition home or self-care (01) | DRG 871 ==
LOC: ED 07:29 → ICU 10:30 → MEDSUR 06-08 18:03
PROVIDERS: ADMIT Internal Medicine; ATTEND Internal Medicine

== ENCOUNTER 2018-03-15 07:53 | Inpatient (IN) ==
[2018-03-15] MEDS ORDERED: LEVOFLOXACIN 750 MG/150 ML BAG IV ONE (08:03)
[2018-03-15] MEDS ORDERED: cefTRIAXone 1 GM VIAL IV ONE (08:03)
[2018-03-15] MEDS ORDERED: VANCOMYCIN 1,000 MG in 0.9 % SODIUM CHLORIDE 250 ML IV ONE (08:03)
[2018-03-15] MEDS ORDERED: LACTATED RINGERS 1,000 ML IV ONE (08:03)
[2018-03-15] MEDS ORDERED: PIPERACILLIN SODIUM/TAZOBACTAM 3.375 GM in DEXTROSE 5% IN WATER 50 ML IV ONE (08:03)
--- NOTE | 2018-03-15 08:07 | Emergency Department Note ---
SOB HPI - General Chief Complaint: Shortness of Breath/Dyspnea Stated Complaint: shortness of breath 02 sat low 80's Time Seen by Provider: 03/15/18 08:03 Source: patient, EMS Mode of arrival: EMS Limitations: no limitations - History of Present Illness This patient was seen in the last week for an upper respiratory infection and treated with a Z-Blaine and improved slightly but during the night his noted a lot of gurgling respirations and he seemed to be a little confused. He is brought into the emergency room now with concern for sepsis. MD Complaint: shortness of breath, cough Onset (ago): hour(s) Context: recent illness Severity: moderate Consistency/Duration: constant Improves with: oxygen Worsens with: nothing Associated symptoms: Reports: denies other symptoms - Related Data Home Medications Medication Instructions Recorded Confirmed Aspirin 81 mg PO DAILY 06/06/17 02/23/18 Citalopram [Celexa] 40 mg PO DAILY 06/06/17 02/23/18 Famotidine [Pepcid] 20 mg PO DAILY 06/06/17 02/23/18 Fish Oil 1,000 mg PO DAILY 06/06/17 02/23/18 Multivit,Ther Iron,Ca,FA & Min 1 tab PO DAILY 06/06/17 02/23/18 [Multivitamin W/Minerals] Omeprazole [Prilosec] 40 mg PO ACB 06/06/17 02/23/18 Ondansetron HCl [Zofran] 4 mg PO Q4-6H PRN 06/06/17 02/23/18 Oxybutynin Chloride [Ditropan Xl] 15 mg PO DAILY 06/06/17 02/23/18 Spironolactone [Aldactone] 25 mg PO DAILY 06/06/17 02/23/18 Tamsulosin [Flomax] 0.4 mg PO DAILY 06/06/17 02/23/18 metFORMIN [Glucophage] 500 mg PO BIDCC 06/06/17 02/23/18 morphine 30 mg PO BID 06/06/17 02/23/18 morphine [Ms Contin] 100 mg PO BID 06/06/17 02/23/18 Carvedilol [Coreg] 12.5 mg PO BIDCC 09/08/17 02/23/18 Multivitamin/Iron/Folic Acid 1 each PO DAILY 09/08/17 02/23/18 [Centrum Complete Multivit Tab] Pioglitazone [Actos] 30 mg PO DAILY 09/08/17 02/23/18 Repaglinide [Prandin] 2 mg PO BID 09/08/17 02/23/18 Hydrocodone/APAP 7.5/325Mg [[place] 1 tab PO Q4-6HP PRN 09/14/17 02/23/18 7.5-325Mg] Previous Rx's Medication Instructions Recorded albuterol sulfate HFA 90 2 puff INHALATION Q6H #18 g 02/01/18 mcg/actuation aerosol inhaler benzonatate 100 mg capsule 100 mg PO Q6H PRN #20 cap 02/01/18 Albuterol Sulfate [Proair Hfa] 1 - 2 puff IH Q4-6HP PRN #1 02/23/18 [email or web address] Azithromycin [Zithromax] 0 mg PO DAILY #6 tab 02/23/18 Allergies Allergy/AdvReac Type Severity Reaction Status Date / Time No Known Drug Allergies Allergy Verified 03/15/18 07:57 Review of Systems Constitutional: Reports: fever, chills Respiratory: Reports: shortness of breath, cough Past Medical History - Past Medical History [facility] Narrative: Medical History (Last Reviewed 02/23/18 @ 11:39 by Monika Chavez DO) Cough with hemoptysis (Chronic) History of melena (Chronic) Loose stools (Chronic) Heartburn (Chronic) Diabetes mellitus, type II (Chronic) Thrush (Chronic) HTN (hypertension) (Chronic) Costochondritis (Chronic) Chest pain (Chronic) Back pain (Chronic) Arthritis (Chronic) Recurrent pneumonia (Chronic) Gallstones and inflammation of gallbladder without obstruction (Chronic) Hemoptysis (Chronic) Impetigo (Chronic) Orthostatic hypotension (Chronic) Pulmonary infiltrate (Chronic) Painful respiration (Chronic) Testicular pain (Chronic) Wrist pain (Chronic) Acute bronchitis (Chronic) Bronchitis (Chronic) Upper respiratory infection (Chronic) COPD exacerbation (Chronic) Rhinitis (Chronic) Right upper quadrant abdominal pain (Chronic) Acute cholecystitis with chronic cholecystitis (Chronic) Diabetes mellitus (Chronic) Cholecystitis (Chronic) Post-op pain (Chronic) Urinary retention with incomplete bladder emptying (Chronic) Urinary retention with incomplete bladder emptying (Chronic) Right pulmonary infiltrate on CXR (Chronic) Left pulmonary infiltrate on CXR (Chronic) Abnormal chest xray (Chronic) Aspiration pneumonia due to food (regurgitated) (Chronic) Parotid gland pain (Acute) Laceration (Acute) Pneumonia (Acute) COPD exacerbation (Acute) Acute respiratory failure with hypoxia (Acute) Laryngitis (Acute) Nausea and vomiting (Chronic) Chronic pain due to trauma (Chronic) Postural lightheadedness (Chronic) Crushing injury of pelvis (Chronic) Radicular pain of sacrum (Chronic) Testosterone deficiency (Chronic) COPD with exacerbation (Chronic) Small bowel obstruction (Resolved) Cough (Chronic) Uncontrolled diabetes mellitus (Chronic) Urinary incontinence (Chronic) Urinary frequency (Chronic) Spondylolysis of lumbar region (Chronic) Sleep apnea (Chronic) Sexual dysfunction (Chronic) Schatzki's ring (Chronic) Overweight (Chronic) Neuropathy (Chronic) Hypertension, essential (Chronic) Hyperlipidemia (Chronic) Fatigue (Chronic) Esophageal reflux (Chronic) Dizziness (Chronic) Depressive disorder (Chronic) Degenerative joint disease (Chronic) Interstitial cystitis (Chronic) COPD (chronic obstructive pulmonary disease) (Chronic) Chronic back pain (Chronic) Anxiety (Chronic) Anemia (Chronic) Mass of adrenal gland (Chronic) Abdominal pain (Resolved) History of pneumonia (Resolved) Leukocytosis (Resolved) Past Surgical History (Last Reviewed 02/05/18 @ 11:42 by ROBERT Mas) History of colonoscopy (Chronic) History of esophagogastroduodenoscopy (Chronic) Esophageal dilatation (Chronic) History of shoulder surgery (Acute) History of cholecystectomy (Chronic) History of hip surgery (Chronic) S/P cholecystectomy (Chronic 01/02/16) History of shoulder surgery (Inactive) Open pelvic fracture (Inactive) Family History (Last Reviewed 02/05/18 @ 11:42 by ROBERT Mas) Unknown No pertinent family history Medical history: Reports: COPD, DM, GERD, hyperlipidemia, hypertension, other Psychiatric history: Reports: anxiety, depression Surgical history ED: Reports: appendectomy, cholecystectomy, orthopedic, other - Social History smoking status: Former smoker Alcohol use: Reports: None Drug use: Reports: none Physical Exam Limitations: no limitations General appearance: lethargic Head: atraumatic Eye: Present: normal appearance ENT: normal exam Neck: Present: normal inspection Chest: Present: normal inspection Respiratory: Present: other (Scattered rhonchi and gurgling breathing) Cardiovascular: Present: regular rate, normal rhythm, normal heart sounds Abdominal: Present: soft. Absent: distention, tenderness Skin: Present: warm, diaphoresis Course Vital Signs Temperature 102.2 F H 03/15/18 07:54 Pulse Rate 106 H 03/15/18 07:54 Respiratory Rate 20 03/15/18 07:54 Pulse Oximetry (%) 92 03/15/18 07:54 Temperature 102.2 F H 03/15/18 07:54 Pulse Rate 106 H 03/15/18 07:54 Respiratory Rate 20 03/15/18 07:54 Pulse Oximetry (%) 92 03/15/18 07:54 Shortness of Breath/Dyspnea - [facility] Narrative Medical decision making narrative: This patient has pneumonia most likely sepsis as he is now hypotensive. I spoke with the hospitalist who will admit him to the ICU and for antibiotics have been ordered. Also giving the usual fluid resuscitation with 3 L of fluid. - Lab Data Result diagrams: 03/15/18 08:05 03/15/18 08:05 - Radiology Data Radiology results reviewed: Yes I reviewed the patient's radiology results. Disposition Pt seen by TRANSACTION ADVISORY SERVICES MANAGER/PA only: No Clinical Impression: Community acquired pneumonia Disposition: Xfer As Inpt ([facility]) Condition: Critical Referrals: Cesar Llanos DO [Primary Care Provider] - Time of Disposition: 09:00
[2018-03-15] MEDS: 0.9 % SODIUM CHLORIDE 1,000 ML IV ONE ×2 (08:10→08:49)
[2018-03-15] MEDS ORDERED: 0.9 % SODIUM CHLORIDE 1,000 ML IV ONE ×3 (08:10→08:57)
[2018-03-15] MEDS ORDERED: ONDANSETRON 4 MG/2 ML VIAL IV ONE (08:14)
--- NOTE | 2018-03-15 08:43 | XRay Report ---
INDICATION: Dyspnea. Cough. TECHNIQUE: AP chest x-ray,portable semiupright COMPARISON: 02/23/2018, 02/01/2018, 06/06/2017 FINDINGS:Significant interval worsening. Previous examination demonstrated mild right upper lobe infiltrate. There is now diffuse right lung infiltrate and some associated volume loss. Appearance is consistent with pneumonia. Left lung is negative. No focal left lung infiltrate. No left lung mass. There is mild cardiomegaly. Unilateral right lung infiltrate is not typical of congestive heart failure and pulmonary edema. Right pleural effusion is not excluded IMPRESSION: 1. Diffuse right lung infiltrate, significantly worse since 02/23/2018 2. Findings are consistent with pneumonia. Interpreted and Authenticated by: Jeremi Ko 03/15/18
[2018-03-15 09:01] LABS: Basophils # (Auto) 0 K/mcL (0.0-0.3); Basophils % (Auto) 0.1 % (0.0-2.0); Eosinophils # (Auto) 0.1 K/mcL (0.0-0.7); Eosinophils % (Auto) 0.9 % (0.0-7.0); Lymphocytes # (Auto) 0.9 K/mcL (1.5-4.8); Lymphocytes % (Auto) 8.3 % (15.5-49.0); Mean Cell Volume 85.3 fL (80.0-100.0); Mean Corpuscular HGB Conc 32.7 g/dL (31.0-36.0); Mean Corpuscular Hemoglobin 27.9 pg (26.0-34.0); Monocytes # (Auto) 0.6 K/mcL (0.1-0.9); Monocytes % (Auto) 5.7 % (1.0-12.0); Platelet Count 222 K/mcL (140-440); RBC 4.63 M/mcL (4.50-5.90)
[2018-03-15] MEDS ORDERED: ACETAMINOPHEN 650 MG SUPP.RECT PR ONE (09:05)
[2018-03-15 09:23] LABS: ALT/SGPT 16 U/l (0-40); Albumin 3.8 gm/dL (3.2-5.2); Albumin/Globulin Ratio 1.2 (1.0-2.3); Alkaline Phosphatase 88 U/L (39-117); Blood Urea Nitrogen 38 mg/dl (8-23)
[2018-03-15] MEDS ORDERED: PIPERACILLIN SODIUM/TAZOBACTAM 3.375 GM VIAL IV ONE (09:47)
[2018-03-15] MEDS ORDERED: ACETAMINOPHEN 650 MG SUPP.RECT PR PRN (09:52)
[2018-03-15] MEDS ORDERED: ALBUTEROL SULFATE 2.5 MG/3 ML NEBULIZER NEB PRN (09:54)
[2018-03-15] MEDS ORDERED: 0.9 % SODIUM CHLORIDE 1,000 ML IV SCH (10:00)
[2018-03-15] MEDS ORDERED: VANCOMYCIN 1,500 MG in 0.9 % SODIUM CHLORIDE 500 ML IV SCH (10:00)
--- NOTE | 2018-03-15 10:57 | Internal Med History&Physical ---
Medical - H&P: [facility] Patient information: Note initiated : 03/15/18 at 10:51 am Service Date, if different from initiated Date: [] Patient: Luis De Leon a 67 y/o M admitted on for SOB 02 Sat Low 80's. Chief Complaint: Presents to the emergency room with weakness, N/V, dyspnea and falls. History of present illness: Mr. De Leon is a 67 year old M who presents to the emergency room with falls, N/ V and dyspnea since the day prior to admission. Patient has been ill with "bronchitis or pneumonia" for 2 weeks. Patient has had a reasonable appetite but decreased mobility and has had repeated falls without overt syncope. Patient has not complained about orthostasis. Patient has had progressive dyspnea nd productive cough. Patient has been on antibiotics including Z vandana. Patient was noted to be hypoxemic and repeatedly hypotensive in the ED and is seen and admitted with pneumonia and sepsis with shock. Patient alerts to voice but is confused. Spouse is present. Patient has received serial crystalloid boluses and antibiotics. Patient is seen in the ED. Discussed plans for ICU care with patient and spouse. Location-generalized, severity-severe, duration-weeks and assocaited symptoms-as above. ROS unobtainable: due to mental status Medical - H&P: PMH Medical history: DM, COPD(?), HTN, Chronic pain and Hyperlipidemia Social history: Lives with spouse and performs ADLs Functional capacity: independent ambulation Smoking status: Smoker, status unknown Medical - H&P: Meds Home Medications Medication Instructions Recorded Confirmed Type Aspirin 81 mg PO DAILY 06/06/17 03/15/18 History Citalopram [Celexa] 40 mg PO DAILY 06/06/17 03/15/18 History Famotidine [Pepcid] 20 mg PO DAILY 06/06/17 03/15/18 History Multivit,Ther Iron,Ca,FA & Min 1 tab PO DAILY 06/06/17 03/15/18 History [Multivitamin W/Minerals] Omeprazole [Prilosec] 40 mg PO ACB 06/06/17 03/15/18 History Oxybutynin Chloride [Ditropan Xl] 15 mg PO DAILY 06/06/17 03/15/18 History Spironolactone [Aldactone] 25 mg PO DAILY 06/06/17 03/15/18 History Tamsulosin [Flomax] 0.4 mg PO DAILY 06/06/17 03/15/18 History metFORMIN [Glucophage] 500 mg PO BIDCC 06/06/17 03/15/18 History morphine 30 mg PO BID 06/06/17 03/15/18 History morphine [Ms Contin] 100 mg PO BID 06/06/17 03/15/18 History Ascorbate Calcium [Vitamin C] 500 mg PO DAILY 03/15/18 03/15/18 History Atorvastatin [Lipitor] 40 mg PO HS 03/15/18 03/15/18 History Gabapentin [Neurontin] 300 mg PO TID 03/15/18 03/15/18 History Lisinopril/Hydrochlorothiazide 1 each PO DAILY 03/15/18 03/15/18 History [Zestoretic 10-12.5 mg Tablet] Allergies Allergy/AdvReac Type Severity Reaction Status Date / Time No Known Drug Allergies Allergy Verified 03/15/18 07:57 Medical - H&P: Exam - Constitutional Vitals: Temp Pulse Resp BP Pulse Ox 100.9 F H 81 10 L 82/53 92 03/15/18 09:20 03/15/18 10:29 03/15/18 10:29 03/15/18 10:29 03/15/18 10:29 General appearance: average body habitus, moderate distress - Head Head exam: Present: atraumatic - Eye Eye exam: Present: EOMI, PERRL - Neck Neck exam: Present: full ROM - Respiratory Respiratory exam: Present: accessory muscle use, decreased breath sounds, rales , respiratory distress, wheezes - GI/Abdominal GI/Abdominal exam: Present: distended, hypoactive bowel sounds - Extremities Exam Extremities exam: Present: full ROM Additional comments: Poor capillary refill - Expanded Neurological Exam Neurological exam expanded: Present: inattentive, protecting the airway Patient oriented to: Present: person, place - Psychiatric Psychiatric exam: Present: flat affect Medical - H&P: Reslt - Labs CBC & Chem 7: 03/15/18 08:05 03/15/18 08:05 Labs: Short CBC 03/15/18 Range/Units 08:05 WBC 10.9 (4.5-11.0) K/mcL Hgb 12.9 L (13.5-16.5) g/dL Hct 39.5 L (41.0-55.0) % Plt Count 222 (140-440) K/mcL BMP 03/15/18 08:05 Sodium 137 Potassium 4.4 Chloride 98 Carbon Dioxide 22 BUN 38 H Creatinine 2.3 H Glucose 201 H Calcium 8.1 L Liver Function 03/15/18 Range/Units 08:05 Total Bilirubin 0.6 (0.0-1.0) mg/dL AST 17 (0-37) U/l ALT 16 (0-40) U/l Alkaline Phosphatase 88 (39-117) U/L Albumin 3.8 (3.2-5.2) gm/dL - ABG Interpretation -: ABG interpreted by me Interpretation: metabolic acidosis Medical - H&P: A/P - Narrative A/P Narrative: Sepsis with shock secondary to pneumonia - Inpatient admission (ICU) - Antibiotics - Trend labs - Crystalloid resucitation - Steroids - Consider pressors - PPI prophylaxis - VTE prophylaxis Critical care time of 50 minutes
--- NOTE | 2018-03-15 12:04 | XRay Report ---
INDICATION: Left central venous catheter placement TECHNIQUE: AP chest x-ray,portable COMPARISON: 03/15/2018 FINDINGS:Left central venous catheter placement with its tip in the brachiocephalic vein. No pneumothorax. Views right-sided infiltrates remain present consistent with pneumonia. No interval change. IMPRESSION: 1. Left central venous catheter with its tip in the brachiocephalic vein 2. No left pneumothorax. Interpreted and Authenticated by: Jeremi Ko 03/15/18
[2018-03-15] MEDS: NOREPINEPHRINE BITARTRATE 8 MG in 0.9 % SODIUM CHLORIDE 242 ML IV SCH (13:00)
[2018-03-15] MEDS: 0.9 % SODIUM CHLORIDE 250 ML IV SCH ×2 (13:00→23:50)
[2018-03-15 14:00] LABS: Appearance,Urine HAZY; Bacteria,Urine 0 /hpf (0); Bilirubin,Urine NEG (NEG); Color,Urine ORANGE; Glucose,Urine (UA) NEGATIVE (NEG); Leukocyte Esterase,Urine COLOR INTERFERENCE /uL (NEG); Mucus,Urine FEW /hpf (0); Protein,Urine NEG (NEG); Specific Gravity,Urine 1.023 (1.000-1.035); Sulfosalicylic Acid,Urine NEG (NEG); Urine Blood NEG mg/dL (<0.03); Urine Hyaline Cast 62 /lpf (0-2); Urine RBC 2 /hpf (0-1); Urine Squamous Epithelial Cell 0 /hpf (0-4); Urine Transitional Epi Cells < 1 /hpf (0-2); Urine WBC 47 /hpf (0-4); Urobilinogen,Urine COLOR INTERFERENCE mg/dL (NEG)
[2018-03-15] MEDS: 0.9 % SODIUM CHLORIDE 1,000 ML IV SCH (14:03)
[2018-03-15] MEDS: morphine 30 MG TAB.SR.12H PO SCH (14:14)
[2018-03-15] MEDS: methylPREDNISolone SOD SUCC 40 MG/ML VIAL IV SCH ×3 (14:20→23:49)
[2018-03-15] MEDS: 0.9 % SODIUM CHLORIDE 10 ML SYRINGE IV SCH ×3 (14:21→22:02)
[2018-03-15] MEDS: PIPERACILLIN SODIUM/TAZOBACTAM 3.375 GM in DEXTROSE 5% IN WATER 50 ML IV SCH ×3 (14:21→23:41)
[2018-03-15 17:45] LABS: Blood Urea Nitrogen 39 mg/dl (8-23)
[2018-03-15] MEDS: PANTOPRAZOLE 40 MG VIAL IV SCH (18:04)
[2018-03-15] MEDS: ATORVASTATIN 20 MG TABLET PO SCH (21:00)
[2018-03-16] MEDS: morphine 30 MG TAB.SR.12H PO SCH ×3 (00:47→12:14)
[2018-03-16] MEDS: NOREPINEPHRINE BITARTRATE 8 MG in 0.9 % SODIUM CHLORIDE 242 ML IV SCH ×2 (01:00→15:10)
[2018-03-16 05:51] LABS: Basophils # (Auto) 0 K/mcL (0.0-0.3); Basophils % (Auto) 0 % (0.0-2.0); Eosinophils # (Auto) 0 K/mcL (0.0-0.7); Eosinophils % (Auto) 0 % (0.0-7.0); Granulocytes % (Auto) 92.1 % (38.0-78.0); Lymphocytes # (Auto) 0.8 K/mcL (1.5-4.8); Lymphocytes % (Auto) 5.2 % (15.5-49.0); Mean Cell Volume 85.8 fL (80.0-100.0); Mean Corpuscular HGB Conc 32.4 g/dL (31.0-36.0); Mean Corpuscular Hemoglobin 27.8 pg (26.0-34.0); Monocytes # (Auto) 0.4 K/mcL (0.1-0.9); Monocytes % (Auto) 2.7 % (1.0-12.0); Platelet Count 191 K/mcL (140-440); RBC 3.98 M/mcL (4.50-5.90); Red Cell Distribution Width 16.2 % (11.5-14.5)
[2018-03-16] MEDS: PIPERACILLIN SODIUM/TAZOBACTAM 3.375 GM in DEXTROSE 5% IN WATER 50 ML IV SCH ×3 (06:04→17:54)
[2018-03-16] MEDS: 0.9 % SODIUM CHLORIDE 10 ML SYRINGE IV SCH ×5 (06:06→21:50)
[2018-03-16] MEDS: methylPREDNISolone SOD SUCC 40 MG/ML VIAL IV SCH ×3 (06:12→17:54)
[2018-03-16] MEDS: PANTOPRAZOLE 40 MG VIAL IV SCH ×2 (07:39→17:54)
[2018-03-16] MEDS: ENOXAPARIN 40 MG/0.4 ML SYRINGE SQ SCH (07:40)
[2018-03-16] MEDS: ASPIRIN 81 MG TAB.CHEW PO SCH (07:40)
--- NOTE | 2018-03-16 10:05 | Internal Med Progress Note ---
Medical - PN: Subj Patient information: Note initiated : 03/16/18 at 10:03 am Service Date, if different from initiated Date: [] Patient: Luis De Leon a 67 y/o M admitted on 03/15/18 for SOB 02 Sat Low 80's. Chief Complaint: [] Interval history: Mr. De Leon is a 67 year old M who presents to the emergency room with falls, N/ V and dyspnea since the day prior to admission. Patient has been ill with "bronchitis or pneumonia" for 2 weeks. Patient has had a reasonable appetite but decreased mobility and has had repeated falls without overt syncope. Patient has not complained about orthostasis. Patient has had progressive dyspnea nd productive cough. Patient has been on antibiotics including Z vandana. Patient was noted to be hypoxemic and repeatedly hypotensive in the ED and is seen and admitted with pneumonia and sepsis with shock. Patient alerts to voice but is confused. Spouse is present. Patient has received serial crystalloid boluses and antibiotics. Patient is seen in the ED. Discussed plans for ICU care with patient and spouse. Location-generalized, severity-severe, duration-weeks and assocaited symptoms-as above. 03/16- patient improving. Systolics improved from 80s to 130s. Vasopressors weaned off. Continue antibiotic coverage. White count 14.7. Potassium 5.6. Pyuria. On broad antibiotic coverage. Await culture sensitivities. MAXIMUM TEMPERATURE 102.2, complains of chronic back pain requiring MS Contin. at bedside - Constitutional Vitals: Vital Signs Temp Pulse Resp BP Pulse Ox 98.0 F 65 14 140/63 96 03/16/18 07:00 03/16/18 07:00 03/16/18 07:00 03/16/18 07:00 03/16/18 07:00 Period Temp Pulse Resp BP Sys/Shin Pulse Ox Last 24 Hr 97.0 F-98.3 F 65-81 8-21 80-154/48-99 90-100 Intake and Output 03/15/18 03/16/18 03/16/18 21:59 05:59 13:59 Intake Total 138 / 138 336 / 336 50 / 50 Output Total 680 / 680 920 / 920 240 / 240 Balance -542 / -542 -584 / -584 -190 / -190 Weight 240 lb 4.8 oz Intake & Output: Intake & Output 05/21/18 05/22/18 05/22/18 21:59 05:59 13:59 Intake Total 138 / 138 336 / 336 50 / 50 Output Total 680 / 680 920 / 920 240 / 240 Balance -542 / -542 -584 / -584 -190 / -190 Weight 240 lb 4.8 oz Intake: IV 138 / 138 336 / 336 50 / 50 Sodium Chloride 0.9% 250 ml @ 240 / 240 20 mls/hr IV .[id number] JS Rx#: [id number] Levophed 8 mg In Sodium 38 / 38 46 / 46 Chloride 0.9% 242 ml @ 10 MCG/ MIN 18.75 mls/hr IV Q14H JS Rx #:[id number] Zosyn 3.375 gm In Dextrose 5% 100 / 100 50 / 50 50 / 50 in Water 50 ml @ 100 mls/hr IV Q6H JS Rx#:[id number] Output: Urine Catheter Amount 495 / 495 920 / 920 240 / 240 Void Amount 185 / 185 General appearance: cooperative, no acute distress Exam: Alert oriented nonlabored breathing Nondistended abdomen No telemetry events Medical - PN: Obj Da - Labs CBC & Chem 7: 03/16/18 03:45 03/15/18 14:55 Labs: Abnormal Lab Results 03/16/18 03/15/18 03/15/18 03:45 14:55 12:50 WBC 14.7 H RBC 3.98 L Hgb 11.1 L Hct 34.1 L RDW 16.2 H Gran % 92.1 H Lymph % (Auto) 5.2 L Gran # 13.5 H Lymph # (Auto) 0.8 L Potassium 5.6 H Anion Gap BUN 39 H Creatinine 2.2 H Glucose 198 H Calcium 7.0 L Urine RBC 2 H Urine WBC 47 H Hyaline Casts 62 H 03/15/18 03/15/18 08:05 08:05 WBC RBC Hgb 12.9 L Hct 39.5 L RDW 16.0 H Gran % 85.0 H Lymph % (Auto) 8.3 L Gran # 9.2 H Lymph # (Auto) 0.9 L Potassium Anion Gap 17.0 H BUN 38 H Creatinine 2.3 H Glucose 201 H Calcium 8.1 L Urine RBC Urine WBC Hyaline Casts Meds: Medications Acetaminophen (Tylenol) 650 mg WV Q4-6HP PRN PRN Reason: PAIN/FEVER > 101 Albuterol Sulfate (Ventolin) 2.5 mg NEB Q2HP PRN PRN Reason: Shortness Of Breath Aspirin (Aspirin) 81 mg PO DAILY [facility] Last Admin: 03/16/18 07:40 Dose: 81 mg Atorvastatin Calcium (Lipitor) 40 mg PO HS [facility] Last Admin: 03/15/18 21:00 Dose: Not Given Enoxaparin Sodium (Lovenox) 40 mg SQ DAILY [facility] Last Admin: 03/16/18 07:40 Dose: 40 mg Piperacillin Sod/Tazobactam (Sod 3.375 gm/ Dextrose) 50 mls @ 100 mls/hr IV Q6H [facility] Last Infusion: 03/16/18 06:34 Dose: Infused Norepinephrine Bitartrate 8 mg (/ Sodium Chloride) 250 mls @ 18.75 mls/hr IV Q14H JS; 10 MCG/MIN PRN Reason: Protocol Last Titration: 03/16/18 01:00 Dose: 0 mcg/min, 0 mls/hr Sodium Chloride (Sodium Chloride 0.9%) 250 mls @ 20 mls/hr IV .[id number] [facility] Last Infusion: 03/16/18 01:00 Dose: 0 mls/hr Sodium Chloride (Sodium Chloride 0.9%) 1,000 mls @ 40 mls/hr IV .Q24H [facility] Last Admin: 03/15/18 14:03 Dose: Not Given Methylprednisolone Sodium Succinate (Solu-Medrol) 40 mg IV Q6 [facility] Last Admin: 03/16/18 06:12 Dose: 40 mg Morphine Sulfate (Ms Contin) 90 mg PO Q12H [facility] Last Admin: 03/16/18 06:50 Dose: 90 mg Pantoprazole Sodium (Protonix) 40 mg IV BIDAC [facility] Last Admin: 03/16/18 07:39 Dose: 40 mg Sodium Chloride (Saline Flush) 10 ml IV Q8 [facility] Last Admin: 03/16/18 06:06 Dose: Not Given Sodium Chloride (Saline Flush) 10 ml IV Q12 [facility] Last Admin: 03/16/18 07:41 Dose: 10 ml Medical - PN: A/P - Time Spent With Patient Total time spent is greater than 50% in coordination of care (as documented) at patient's floor/unit and/or counseling patient: Greater than 35 minutes (critical care time) - Narrative A/P Narrative: * Right-sided pneumonia-on broad antibiotic coverage. * Septic shock secondary to above-managed per guidelines weaning vasopressors. Continue antibiotic coverage. * Complicated UTI-await cultures. On broad antibiotic coverage * Hyperlipidemia on statin * History of CAD on aspirin and statin * Anxiety disorder continue citalopram * Chronic pain on MS Contin * History of hypertension medications on hold until septic shock resolved * Neuropathy on gabapentin * DVT prophylaxis on enoxaparin Plan * Septic shock management per guidelines * Broad antibiotic coverage * De-escalate antibiotics based on culture * pre-existing medical condition management as above * Physical therapy Medical - PN: Qual - VTE Deep Vein Thrombosis/Pulmonary Embolism Present on Admission: No
[2018-03-16] MEDS: 0.9 % SODIUM CHLORIDE 250 ML IV SCH (10:16)
[2018-03-16] MEDS: CITALOPRAM 20 MG TABLET PO SCH (11:17)
[2018-03-16] MEDS: FAMOTIDINE 20 MG TABLET PO SCH (11:18)
[2018-03-16] MEDS: GABAPENTIN 300 MG CAPSULE PO SCH (11:18)
[2018-03-16] MEDS: TAMSULOSIN 0.4 MG CAPSULE PO SCH (11:18)
[2018-03-16] MEDS ORDERED: OPIUM/BELLADONNA ALKALOIDS 60 MG SUPP.RECT PR PRN (11:49)
[2018-03-16] MEDS ORDERED: ONDANSETRON 4 MG/2 ML VIAL IV PRN (12:09)
[2018-03-16] MEDS: 0.9 % SODIUM CHLORIDE 1,000 ML IV SCH (12:19)
[2018-03-16] MEDS ORDERED: OXYBUTYNIN CHLORIDE 5 MG TABLET PO ONE (13:18)
[2018-03-16] MEDS: HYDROmorphone 2 MG/ML VIAL IV PRN ×2 (15:11→21:50)
[2018-03-16] MEDS ORDERED: LORazepam 2 MG/ML VIAL ONE ×2 (15:40→16:08)
[2018-03-16] MEDS ORDERED: LORazepam 2 MG/ML VIAL IV ONE ×2 (15:40→15:45)
[2018-03-16] MEDS ORDERED: NALOXONE HCL 0.4 MG/ML VIAL ONE (16:14)
--- NOTE | 2018-03-16 16:14 | Cat Scan Report ---
ORIGINAL REPORT CLINICAL INFORMATION: Unresponsive COMPARISON: MRI scan dated 02/19/2007 TECHNIQUE: Axial noncontrast-enhanced images through the brain. FINDINGS: No acute intracranial hemorrhage. No intra-axial hematoma. No focal intra-axial attenuation abnormality or localized mass effect. No midline shift. Brain volume is within normal limits. No hydrocephalus. No extra-axial, intracranial abnormality. Subdural hematoma. No subarachnoid hemorrhage. Basilar cisterns are normal. No hyperdense middle cerebral artery sign. No calvarial lesions. No fracture. Paranasal sinuses and temporal bones are negative IMPRESSION: 1. Negative noncontrast enhanced brain CT scan 2. No acute or focal abnormality The exam was performed using radiation dose optimization techniques including, but not limited to, automated exposure control, adjustment of the mA and/or kV according to patient size and use of iterative reconstruction technique. ADDENDUM #1 Addendum: In the body of the report a sentence states: no extra-axial, intracranial abnormality. Subdural hematoma. This should state: No subdural hematoma Interpreted and Authenticated by: Jeremi Ko 03/16/18
[2018-03-16] MEDS ORDERED: HALOPERIDOL LACTATE 5 MG/ML VIAL IV ONE ×2 (16:25→18:58)
[2018-03-16] MEDS ORDERED: HALOPERIDOL LACTATE 5 MG/ML VIAL ONE (16:25)
[2018-03-16] MEDS ORDERED: LIDOCAINE 2% URO-JET 5 ML JEL.PF.APP UR ONE (17:19)
[2018-03-16] MEDS: metFORMIN 500 MG TAB.XL.24H PO SCH (17:47)
[2018-03-16] MEDS ORDERED: 0.9 % SODIUM CHLORIDE 250 ML IV SCH (18:45)
[2018-03-16] MEDS ORDERED: diphenhydrAMINE 50 MG/ML VIAL ONE (19:04)
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
--- NOTE | 2018-03-16 20:11 | General Surgery Consult Note ---
History of Present Illness Patient information: Note initiated : 03/16/18 at 8:08 pm Service Date, if different from initiated Date: [] Patient: Luis De Leon 67 y/o M admitted on 03/15/18 for SOB 02 Sat Low 80's/ Pneumonia, Sepsis. Chief Complaint: [] Reason for consult: other (hemorrhage from internal jugular catheter insertion site) History of present illness: patient became agitated after receiving narcan for suspected opiate oversedation. He pulled out his right neck central line and had high volume bleeding that was not controlled with compression gauzes. Large volume of blood in bed and on many dressings. Medications and Allergies Home Medications Medication Instructions Recorded Confirmed Type Aspirin 81 mg PO DAILY 06/06/17 03/15/18 History Citalopram [Celexa] 40 mg PO DAILY 06/06/17 03/15/18 History Famotidine [Pepcid] 20 mg PO DAILY 06/06/17 03/15/18 History Multivit,Ther Iron,Ca,FA & Min 1 tab PO DAILY 06/06/17 03/15/18 History [Multivitamin W/Minerals] Omeprazole [Prilosec] 40 mg PO ACB 06/06/17 03/15/18 History Oxybutynin Chloride [Ditropan Xl] 15 mg PO DAILY 06/06/17 03/15/18 History Spironolactone [Aldactone] 25 mg PO DAILY 06/06/17 03/15/18 History Tamsulosin [Flomax] 0.4 mg PO DAILY 06/06/17 03/15/18 History metFORMIN [Glucophage] 1,000 mg PO BIDCC 06/06/17 03/15/18 History morphine 30 mg PO BID 06/06/17 03/15/18 History morphine [Ms Contin] 100 mg PO BID 06/06/17 03/15/18 History Ascorbic Acid [Vitamin C] 500 mg PO DAILY 03/15/18 03/15/18 History Atorvastatin [Lipitor] 40 mg PO HS 03/15/18 03/15/18 History Gabapentin [Neurontin] 300 mg PO BID@0800,1200 03/15/18 03/15/18 History Gabapentin [Neurontin] 600 mg PO HS 03/15/18 03/15/18 History Lisinopril/Hydrochlorothiazide 1 tab PO DAILY 03/15/18 03/15/18 History [Zestoretic 10-12.5 mg Tablet] Allergies Allergy/AdvReac Type Severity Reaction Status Date / Time No Known Drug Allergies Allergy Verified 03/15/18 07:57 Exam Temp Pulse Resp BP Pulse Ox 98.0 F 90 18 98/58 93 03/16/18 15:30 03/16/18 15:30 03/16/18 19:16 03/16/18 19:16 03/16/18 19:16 - General physical appearance severe distress, other (patient very agitated and combative being held by 4 nursing personell) - Neck other (high volume bleeding from catheter insertion site in left lateral neck without major ecchymosis) - Respiratory other (coarse tubular breath sounds bilaterally) Results - Labs 03/17/18 03:42 03/17/18 03:42 Abnormal lab results 03/16/18 03/16/18 03/16/18 Range/Units 03:45 18:39 18:39 WBC 14.7 H (4.5-11.0) K/mcL RBC 3.98 L (4.50-5.90) M/mcL Hgb 11.1 L 11.5 L (13.5-16.5) g/dL Hct 34.1 L 35.9 L (41.0-55.0) % POC Hct 35.0 L (41.0-55.0) % RDW 16.2 H (11.5-14.5) % Gran % 92.1 H (38.0-78.0) % Lymph % (Auto) 5.2 L (15.5-49.0) % Gran # 13.5 H (1.8-8.0) K/mcL Lymph # (Auto) 0.8 L (1.5-4.8) K/mcL PT (11.9-14.5) sec INR (0.9-1.1) APTT (20-37) sec POC Total CO2 21 L (22-30) mmol/L POC BUN 32 H (8-23) mg/dl POC Glucose 340 H (70-105) mg/dL POC WB Ioniz Calcium 1.06 L (1.16-1.32) mmol/L 03/16/18 Range/Units 18:39 WBC (4.5-11.0) K/mcL RBC (4.50-5.90) M/mcL Hgb (13.5-16.5) g/dL Hct (41.0-55.0) % POC Hct (41.0-55.0) % RDW (11.5-14.5) % Gran % (38.0-78.0) % Lymph % (Auto) (15.5-49.0) % Gran # (1.8-8.0) K/mcL Lymph # (Auto) (1.5-4.8) K/mcL PT 17.7 H (11.9-14.5) sec INR 1.4 H (0.9-1.1) APTT 38 H (20-37) sec POC Total CO2 (22-30) mmol/L POC BUN (8-23) mg/dl POC Glucose (70-105) mg/dL POC WB Ioniz Calcium (1.16-1.32) mmol/L All other labs normal. Assessment and Plan (1) Hemorrhage complicating a procedure Evaluation at the bedside revealed high volume almost pulsatile blood flow from a 1 cm puncture wound in the left lateral neck anterior to the sternocleidomastoid. The bulky dressing that had been placed was removed and a folded 4 x 4 gauze was placed over the bleeding site and was held continuously for 45 minutes. The area was checked intermittently to determine if the bleeding had ceased. After the bleeding ceased the dressing was removed and was observed for about 3 minutes. There was no expansion of the tissues of the neck. 3 4 x 4's were then folded and a light compression dressing was placed over the puncture site and secured with Anitra gauze. The Anitra gauze was secured with 2 inch tape to prevent movement. The patient was monitored and checked over the next 30 minutes and there was no expansion of the tissues in the left neck. The hemoglobin drawn near the end of the treatment was 11.5 which was not significantly reduced. He however did not have time to equilibrate and will be monitored closely throughout the night. Status: Acute
[2018-03-16] MEDS ORDERED: BENZOIN TP ONE (20:21)
[2018-03-16] MEDS: morphine 15 MG TABLET PO SCH (20:56)
[2018-03-16] MEDS: ATORVASTATIN 20 MG TABLET PO SCH (20:56)
[2018-03-16] MEDS ORDERED: fentaNYL 100 MCG/2 ML VIAL IV ONE (22:03)
[2018-03-16] MEDS ORDERED: fentaNYL 100 MCG/2 ML VIAL IV PRN (22:09)
[2018-03-17] MEDS: methylPREDNISolone SOD SUCC 40 MG/ML VIAL IV SCH ×5 (00:17→23:44)
[2018-03-17] MEDS: PIPERACILLIN SODIUM/TAZOBACTAM 3.375 GM in DEXTROSE 5% IN WATER 50 ML IV SCH ×5 (00:17→23:43)
[2018-03-17] MEDS: morphine 30 MG TAB.SR.12H PO SCH ×2 (03:41→17:48)
[2018-03-17] MEDS: 0.9 % SODIUM CHLORIDE 250 ML IV SCH ×2 (03:42→12:46)
[2018-03-17 05:00] LABS: Mean Cell Volume 85.4 fL (80.0-100.0); Mean Corpuscular HGB Conc 32.6 g/dL (31.0-36.0); Mean Corpuscular Hemoglobin 27.9 pg (26.0-34.0); Platelet Count 217 K/mcL (140-440)
[2018-03-17 05:50] LABS: ALT/SGPT 13 U/l (0-40); Alkaline Phosphatase 63 U/L (39-117); Bilirubin,Direct < 0.2 mg/dL (0.0-0.3); Blood Urea Nitrogen 28 mg/dl (8-23); Gamma Glutamyl Transpeptidase 9 U/L (8-61); Uric Acid 5.2 mg/dL (2.5-8.0)
[2018-03-17 06:05] LABS: Band Neutrophils % 4 % (0-10); Lymphocytes % 8 % (15-49); Monocytes % (Manual) 4 % (1-12); Platelet Estimate NORMAL (NORMAL); RBC Morphology NORMAL (NORMAL); Segmented Neutrophils % 84 % (38-78)
[2018-03-17] MEDS: NOREPINEPHRINE BITARTRATE 8 MG in 0.9 % SODIUM CHLORIDE 242 ML IV SCH ×2 (06:53→19:22)
[2018-03-17] MEDS: 0.9 % SODIUM CHLORIDE 10 ML SYRINGE IV SCH ×5 (06:54→23:41)
--- NOTE | 2018-03-17 07:05 | General Surgery Progress Note ---
Surgical - Auxillary Note - Subjective Patient Information: Note initiated : 03/17/18 at 7:03 am Service Date, if different from initiated Date: [] Patient: Luis De Leon 67 y/o M admitted on 03/15/18 for SOB 02 Sat Low 80's/ Pneumonia, Sepsis. Chief Complaint: pain in penis. Events of last night noted. Milner catheter reinserted. Would keep catheter in until patient is back to his base line. The pain has been going on for 6 months. Will need cysto in future. 10 minutes spent reviewing records and talking to the family.
[2018-03-17] MEDS: GABAPENTIN 300 MG CAPSULE PO SCH ×3 (07:06→12:16)
[2018-03-17] MEDS: PANTOPRAZOLE 40 MG VIAL IV SCH ×2 (07:06→17:48)
[2018-03-17] MEDS: HYDROmorphone 2 MG/ML VIAL IV PRN ×2 (07:07→18:58)
[2018-03-17] MEDS ORDERED: LISINOPRIL/HCTZ 10/12.5MG TABLET PO SCH (09:00)
[2018-03-17] MEDS: morphine 15 MG TABLET PO SCH ×2 (10:11→20:36)
[2018-03-17] MEDS: OXYBUTYNIN CHLORIDE 5 MG TAB.XL.24H PO SCH (10:11)
[2018-03-17] MEDS: metFORMIN 500 MG TAB.XL.24H PO SCH ×2 (10:11→17:51)
[2018-03-17] MEDS: FAMOTIDINE 20 MG TABLET PO SCH (10:12)
[2018-03-17] MEDS: LISINOPRIL 10 MG TABLET PO SCH (10:12)
[2018-03-17] MEDS: SPIRONOLACTONE 25 MG TABLET PO SCH (10:12)
[2018-03-17] MEDS: HYDROCHLOROTHIAZIDE 12.5 MG CAPSULE PO SCH (10:12)
[2018-03-17] MEDS: TAMSULOSIN 0.4 MG CAPSULE PO SCH (10:12)
[2018-03-17] MEDS: CITALOPRAM 20 MG TABLET PO SCH (10:12)
[2018-03-17] MEDS: ASPIRIN 81 MG TAB.CHEW PO SCH (10:12)
[2018-03-17] MEDS: ENOXAPARIN 40 MG/0.4 ML SYRINGE SQ SCH (10:13)
--- NOTE | 2018-03-17 10:21 | Internal Med Progress Note ---
Medical - PN: Subj Patient information: Note initiated : 03/17/18 at 10:19 am Service Date, if different from initiated Date: [] Patient: Luis De Leon a 67 y/o M admitted on 03/15/18 for SOB 02 Sat Low 80's/ Pneumonia, Sepsis. Chief Complaint: [] Interval history: Mr. De Leon is a 67 year old M who presents to the emergency room with falls, N/ V and dyspnea since the day prior to admission. Patient has been ill with "bronchitis or pneumonia" for 2 weeks. Patient has had a reasonable appetite but decreased mobility and has had repeated falls without overt syncope. Patient has not complained about orthostasis. Patient has had progressive dyspnea nd productive cough. Patient has been on antibiotics including Z vandana. Patient was noted to be hypoxemic and repeatedly hypotensive in the ED and is seen and admitted with pneumonia and sepsis with shock. Patient alerts to voice but is confused. Spouse is present. Patient has received serial crystalloid boluses and antibiotics. Patient is seen in the ED. Discussed plans for ICU care with patient and spouse. Location-generalized, severity-severe, duration-weeks and assocaited symptoms-as above. 03/16- patient improving. Systolics improved from 80s to 130s. Vasopressors weaned off. Continue antibiotic coverage. White count 14.7. Potassium 5.6. Pyuria. On broad antibiotic coverage. Await culture sensitivities. MAXIMUM TEMPERATURE 102.2, complains of chronic back pain requiring MS Contin. at bedside -Responded nurse call due to patient being extremely agitated and pulling on IV lines in the setting of delirium. Patient was noted to be profusely bleeding around the left internal jugular central venous catheter insertion site which was pulled out by patient. Local pressure was applied around the IJ CVC insertion site and subsequently surgery was consulted. Pressure was applied for a period of 45 minutes. Patient was sedated with haloperidol, ketamine to counter agitation. was informed about patient status. Stat hemoglobin 11.5, stat INR 1.4, A PTT 38 03/17-patient had a much better night. Woke up alert oriented and following commands. No significant agitation and delirium. Clinical improvement noted. White count 14.7. Creatinine normalized from 2.2-1. Continue antibiotic coverage/physical therapy. Chronic pain in good control on home medications. Anticipate transfer to medical floor in 24 hours - Constitutional Vitals: Vital Signs Temp Pulse Resp BP Pulse Ox 98.2 F 66 17 165/75 96 03/17/18 04:01 03/17/18 06:01 03/17/18 07:01 03/17/18 07:01 03/17/18 07:01 Period Temp Pulse Resp BP Sys/Shin Pulse Ox Last 24 Hr 97.7 F-98.2 F 66-90 9-28 97-191/50-144 74-100 Intake and Output 03/16/18 03/17/18 03/17/18 21:59 05:59 13:59 Intake Total 350 / 350 517 / 517 50 / 50 Output Total 3 / 3 975 / 975 Balance 347 / 347 -458 / -458 50 / 50 Weight 240 lb 4.8 oz Intake & Output: Intake & Output 03/16/18 03/17/18 03/17/18 21:59 05:59 13:59 Intake Total 350 / 350 517 / 517 50 / 50 Output Total 3 / 3 975 / 975 Balance 347 / 347 -458 / -458 50 / 50 Weight 240 lb 4.8 oz Intake: IV 50 / 50 517 / 517 50 / 50 Sodium Chloride 0.9% 1,000 ml @ 467 / 467 40 mls/hr IV .Q24H [facility] Rx#: [id number] Zosyn 3.375 gm In Dextrose 5% 50 / 50 50 / 50 50 / 50 in Water 50 ml @ 100 mls/hr IV Q6H [facility] Rx#:[id number] Oral 300 / 300 Output: Urine Catheter Amount 975 / 975 Void Amount 0 / 0 # of times incontinent of urine 3 / 3 Other: Meal Lunch Percent of Meal Consumed 25% Feeding Ability Assist with Tray Set Up Stool Size Large Stool Color Brown Stool Consistency Formed # Bowel Movements 1 # of times incontinent of 1 Bowels General appearance: cooperative, no acute distress Exam: Alert nonlabored breathing nondistended abdomen Medical - PN: Obj Da - Labs CBC & Chem 7: 03/17/18 03:42 03/17/18 03:42 Labs: Abnormal Lab Results 03/17/18 03/17/18 03/16/18 03:42 03:42 21:55 WBC 14.7 H RBC 3.70 L Hgb 10.3 L Hct 31.6 L POC Hct 32.0 L RDW 16.0 H Gran % Lymph % (Auto) Gran # Lymph # (Auto) Seg Neutrophils % 84 H Lymphocytes % 8 L PT INR APTT Potassium POC Total CO2 Anion Gap POC BUN 31 H BUN 28 H Creatinine Glucose 273 H POC Glucose 301 H Calcium 7.9 L POC WB Ioniz Calcium 1.08 L Phosphorus 1.1 L Albumin 3.0 L Urine RBC Urine WBC Hyaline Casts 03/16/18 03/16/18 03/16/18 18:39 18:39 18:39 WBC RBC Hgb 11.5 L Hct 35.9 L POC Hct 35.0 L RDW Gran % Lymph % (Auto) Gran # Lymph # (Auto) Seg Neutrophils % Lymphocytes % PT 17.7 H INR 1.4 H APTT 38 H Potassium POC Total CO2 21 L Anion Gap POC BUN 32 H BUN Creatinine Glucose POC Glucose 340 H Calcium POC WB Ioniz Calcium 1.06 L Phosphorus Albumin Urine RBC Urine WBC Hyaline Casts 03/16/18 03/15/18 03/15/18 03:45 14:55 12:50 WBC 14.7 H RBC 3.98 L Hgb 11.1 L Hct 34.1 L POC Hct RDW 16.2 H Gran % 92.1 H Lymph % (Auto) 5.2 L Gran # 13.5 H Lymph # (Auto) 0.8 L Seg Neutrophils % Lymphocytes % PT INR APTT Potassium 5.6 H POC Total CO2 Anion Gap POC BUN BUN 39 H Creatinine 2.2 H Glucose 198 H POC Glucose Calcium 7.0 L POC WB Ioniz Calcium Phosphorus Albumin Urine RBC 2 H Urine WBC 47 H Hyaline Casts 62 H 03/15/18 03/15/18 08:05 08:05 WBC RBC Hgb 12.9 L Hct 39.5 L POC Hct RDW 16.0 H Gran % 85.0 H Lymph % (Auto) 8.3 L Gran # 9.2 H Lymph # (Auto) 0.9 L Seg Neutrophils % Lymphocytes % PT INR APTT Potassium POC Total CO2 Anion Gap 17.0 H POC BUN BUN 38 H Creatinine 2.3 H Glucose 201 H POC Glucose Calcium 8.1 L POC WB Ioniz Calcium Phosphorus Albumin Urine RBC Urine WBC Hyaline Casts Meds: Medications Acetaminophen (Tylenol) 650 mg TX Q4-6HP PRN PRN Reason: PAIN/FEVER > 101 Albuterol Sulfate (Ventolin) 2.5 mg NEB Q2HP PRN PRN Reason: Shortness Of Breath Aspirin (Aspirin) 81 mg PO DAILY [facility] Last Admin: 03/17/18 10:12 Dose: 81 mg Atorvastatin Calcium (Lipitor) 40 mg PO HS [facility] Last Admin: 03/16/18 20:56 Dose: 40 mg Belladonna Alkaloids/Opium (B & O) 60 mg TX Q4HP PRN PRN Reason: BLADDER SPASMS Last Admin: 03/16/18 12:07 Dose: 60 mg Citalopram Hydrobromide (Celexa) 40 mg PO DAILY [facility] Last Admin: 03/17/18 10:12 Dose: 40 mg Enoxaparin Sodium (Lovenox) 40 mg SQ DAILY [facility] Last Admin: 03/17/18 10:13 Dose: Not Given Famotidine (Pepcid) 20 mg PO DAILY [facility] Last Admin: 03/17/18 10:12 Dose: 20 mg Fentanyl (Sublimaze) 0 mcg IV Q4HP PRN PRN Reason: PAIN LEVEL > 6 Gabapentin (Neurontin) 300 mg PO BID@0800,1200 [facility] Last Admin: 03/17/18 07:52 Dose: 300 mg Hydrochlorothiazide (Oretic) 12.5 mg PO DAILY [facility] Last Admin: 03/17/18 10:12 Dose: 12.5 mg Hydromorphone HCl (Dilaudid) 0.5 mg IV Q4-6HP PRN PRN Reason: PAIN LEVEL > 6 Last Admin: 03/17/18 07:07 Dose: 0.5 mg Piperacillin Sod/Tazobactam (Sod 3.375 gm/ Dextrose) 50 mls @ 100 mls/hr IV Q6H [facility] Last Infusion: 03/17/18 07:39 Dose: Infused Norepinephrine Bitartrate 8 mg (/ Sodium Chloride) 250 mls @ 18.75 mls/hr IV Q14H [facility]; 10 MCG/MIN PRN Reason: Protocol Last Admin: 03/17/18 06:53 Dose: Not Given Sodium Chloride (Sodium Chloride 0.9%) 250 mls @ 20 mls/hr IV .[id number] [facility] Last Admin: 03/17/18 03:42 Dose: Not Given Sodium Chloride (Sodium Chloride 0.9%) 1,000 mls @ 40 mls/hr IV .Q24H [facility] Last Infusion: 03/17/18 00:00 Dose: 40 mls/hr Lisinopril (Zestril) 10 mg PO DAILY [facility] Last Admin: 03/17/18 10:12 Dose: 10 mg Metformin HCl (Glucophage) 1,000 mg PO BIDCC [facility] Last Admin: 03/17/18 10:11 Dose: 1,000 mg Methylprednisolone Sodium Succinate (Solu-Medrol) 40 mg IV Q6 [facility] Last Admin: 03/17/18 05:31 Dose: 40 mg Morphine Sulfate (Ms Contin) 90 mg PO Q12H [facility] Last Admin: 03/17/18 03:41 Dose: Not Given Morphine Sulfate (Morphine) 30 mg PO BID [facility] Last Admin: 03/17/18 10:11 Dose: 30 mg Ondansetron HCl (Zofran) 4 mg IV Q4-6HP PRN PRN Reason: Nausea And Vomiting Last Admin: 03/16/18 12:32 Dose: 4 mg Oxybutynin Chloride (Ditropan Xl) 15 mg PO DAILY [facility] Last Admin: 03/17/18 10:11 Dose: 15 mg Pantoprazole Sodium (Protonix) 40 mg IV BIDAC [facility] Last Admin: 03/17/18 07:06 Dose: 40 mg Sodium Chloride (Saline Flush) 10 ml IV Q8 [facility] Last Admin: 03/17/18 06:54 Dose: 10 ml Sodium Chloride (Saline Flush) 10 ml IV Q12 [facility] Last Admin: 03/17/18 10:13 Dose: 10 ml Spironolactone (Aldactone) 25 mg PO DAILY [facility] Last Admin: 03/17/18 10:12 Dose: 25 mg Tamsulosin HCl (Flomax) 0.4 mg PO DAILY [facility] Last Admin: 03/17/18 10:12 Dose: 0.4 mg Medical - PN: A/P - Time Spent With Patient Total time spent is greater than 50% in coordination of care (as documented) at patient's floor/unit and/or counseling patient: 25 - 35 minutes - Narrative A/P Narrative: * Right-sided pneumonia- clinical improvement noted on broad antibiotic coverage. * Septic shock secondary above - clinically resolved. Off pressors. White count 14.7 * Agitated delirium- on as needed antipsychotics. Continue bright lights frequent reorientation * Complicated UTI-await cultures. Continue broad antibiotic coverage * Acute renal failure-creatinine down from 2.2-1 * Hyperlipidemia on statin * History of CAD on aspirin and statin * Anxiety disorder continue citalopram * Chronic pain on MS Contin/IV Dilaudid * History of hypertension medications on hold until septic shock resolved * Neuropathy on gabapentin * DVT prophylaxis on enoxaparin Plan * Monitor for delirium * Broad antibiotic coverage * pre-existing medical condition management as above * Physical therapy * Anticipate transfer to medical floor in 24 hours Medical - PN: Qual - VTE Deep Vein Thrombosis/Pulmonary Embolism Present on Admission: No
[2018-03-17] MEDS ORDERED: PHENAZOPYRIDINE 200 MG TABLET PO PRN (11:27)
[2018-03-17] MEDS ORDERED: LIDOCAINE 2% URO-JET 5 ML JEL.PF.APP UR PRN (11:28)
--- NOTE | 2018-03-17 14:23 | General Surgery Progress Note ---
Subjective Patient reports: feels better, pain is less, afebrile Narrative: Note initiated : 03/17/18 at 2:22 pm Service Date, if different from initiated Date: [] Patient: Luis De Leon 67 y/o M admitted on 03/15/18 for SOB 02 Sat Low 80's/ Pneumonia, Sepsis. Chief Complaint: [Patient is being followed up at the treatment for hemorrhage from his left neck from a left internal jugular catheter dislodgment. He is doing well though he complains of neck soreness. There is no evidence of hematoma in the area of the puncture site and there is no ecchymosis of the upper chest on the left side suggesting that he did not have any further bleeding. Then the morning hemoglobin is 10.5. The dressing was removed and the area is fully clotted without any bleeding. It is elected to leave the dressing off for closer monitoring.] Objective Temp Pulse Resp BP Pulse Ox 99.0 F H 55 L 15 154/55 96 03/17/18 12:01 03/17/18 14:01 03/17/18 14:01 03/17/18 14:01 03/17/18 14:01 - Additional Data Intake & Output - Last 24 hours: Intake & Output 03/15/18 03/16/18 03/17/18 03/18/18 05:59 05:59 05:59 05:59 Intake Total 5068 / 5068 1824 / 1824 100 / 100 Output Total 1875 / 1875 1653 / 1653 450 / 450 Balance 3193 / 3193 171 / 171 -350 / -350 Weight 240 lb 4.8 oz 240 lb 4.8 oz - Labs 03/17/18 03:42 03/17/18 03:42 Diabetes panel 03/17/18 Range/Units 03:42 Sodium 141 (133-145) mmol/L Potassium 4.9 (3.3-5.1) mmol/L Chloride 106 (96-108) mmol/L Carbon Dioxide 24 (22-30) mmol/L BUN 28 H (8-23) mg/dl Creatinine 1.0 (0.7-1.2) mg/dl Glucose 273 H (70-105) mg/dL Calcium 7.9 L (8.6-10.4) mg/dl AST 15 (0-37) U/l ALT 13 (0-40) U/l Alkaline Phosphatase 63 (39-117) U/L Total Protein 6.0 (5.9-8.4) gm/dL Albumin 3.0 L (3.2-5.2) gm/dL Triglycerides 139 (<150) mg/dl Calcium panel 03/17/18 Range/Units 03:42 Calcium 7.9 L (8.6-10.4) mg/dl Phosphorus 1.1 L (2.7-4.5) mg/dL Albumin 3.0 L (3.2-5.2) gm/dL Pituitary panel 03/17/18 Range/Units 03:42 Sodium 141 (133-145) mmol/L Potassium 4.9 (3.3-5.1) mmol/L Chloride 106 (96-108) mmol/L Carbon Dioxide 24 (22-30) mmol/L BUN 28 H (8-23) mg/dl Creatinine 1.0 (0.7-1.2) mg/dl Glucose 273 H (70-105) mg/dL Calcium 7.9 L (8.6-10.4) mg/dl Adrenal panel 03/17/18 Range/Units 03:42 Sodium 141 (133-145) mmol/L Potassium 4.9 (3.3-5.1) mmol/L Chloride 106 (96-108) mmol/L Carbon Dioxide 24 (22-30) mmol/L BUN 28 H (8-23) mg/dl Creatinine 1.0 (0.7-1.2) mg/dl Glucose 273 H (70-105) mg/dL Calcium 7.9 L (8.6-10.4) mg/dl Total Bilirubin 0.3 (0.0-1.0) mg/dL AST 15 (0-37) U/l ALT 13 (0-40) U/l Alkaline Phosphatase 63 (39-117) U/L Total Protein 6.0 (5.9-8.4) gm/dL Albumin 3.0 L (3.2-5.2) gm/dL Assessment and Plan (1) Hemorrhage complicating a procedure Status: Acute Assessment and plan: Stable status post control of hemorrhage from left neck without ongoing bleeding. Recommend withholding anticoagulation for another 48 hours and may then resume prophylactic anticoagulation if absolutely necessary. Current Visit: Yes - Time Spent With Patient Total time spent is greater than 50% in coordination of care (as documented) at patient's floor/unit and/or counseling patient:
[2018-03-17] MEDS: 0.9 % SODIUM CHLORIDE 1,000 ML IV SCH ×2 (17:49→23:40)
[2018-03-17] MEDS: ATORVASTATIN 20 MG TABLET PO SCH (20:36)
[2018-03-18] MEDS: morphine 30 MG TAB.SR.12H PO SCH ×2 (01:56→12:56)
[2018-03-18] MEDS: 0.9 % SODIUM CHLORIDE 250 ML IV SCH (01:57)
[2018-03-18] MEDS: HYDROmorphone 2 MG/ML VIAL IV PRN (03:29)
[2018-03-18] MEDS: methylPREDNISolone SOD SUCC 40 MG/ML VIAL IV SCH (05:40)
[2018-03-18] MEDS: 0.9 % SODIUM CHLORIDE 10 ML SYRINGE IV SCH ×7 (05:41→22:27)
[2018-03-18] MEDS: PIPERACILLIN SODIUM/TAZOBACTAM 3.375 GM in DEXTROSE 5% IN WATER 50 ML IV SCH (05:41)
[2018-03-18 05:45] LABS: Basophils # (Auto) 0 K/mcL (0.0-0.3); Basophils % (Auto) 0 % (0.0-2.0); Eosinophils # (Auto) 0 K/mcL (0.0-0.7); Eosinophils % (Auto) 0 % (0.0-7.0); Granulocytes % (Auto) 90.2 % (38.0-78.0); Lymphocytes # (Auto) 0.8 K/mcL (1.5-4.8); Lymphocytes % (Auto) 6.5 % (15.5-49.0); Mean Cell Volume 85.5 fL (80.0-100.0); Mean Corpuscular HGB Conc 32.7 g/dL (31.0-36.0); Mean Corpuscular Hemoglobin 27.9 pg (26.0-34.0); Monocytes # (Auto) 0.4 K/mcL (0.1-0.9); Monocytes % (Auto) 3.3 % (1.0-12.0); Platelet Count 216 K/mcL (140-440); RBC 3.57 M/mcL (4.50-5.90)
[2018-03-18] MEDS: PANTOPRAZOLE 40 MG VIAL IV SCH (07:05)
[2018-03-18 07:15] LABS: ALT/SGPT 14 U/l (0-40); Albumin/Globulin Ratio 1.1 (1.0-2.3); Alkaline Phosphatase 71 U/L (39-117); Bilirubin,Direct < 0.2 mg/dL (0.0-0.3); Blood Urea Nitrogen 32 mg/dl (8-23); Gamma Glutamyl Transpeptidase 13 U/L (8-61); Uric Acid 5.4 mg/dL (2.5-8.0)
[2018-03-18] MEDS ORDERED: PANTOPRAZOLE 40 MG TABLET PO SCH (07:30)
--- NOTE | 2018-03-18 08:33 | General Surgery Progress Note ---
Surgical - Auxillary Note - Subjective Patient Information: Note initiated : 03/18/18 at 8:31 am Service Date, if different from initiated Date: [] Patient: Luis De Leon 67 y/o M admitted on 03/15/18 for SOB 02 Sat Low 80's/ Pneumonia, Sepsis. Chief Complaint: PENILE PAIN Patient improved. Catheter can be removed per hospitalist. Will f/u as outpatient with cystoscopy. Discussed with family and they agree. !0 minutes spent with patient. Will f/u as outpatient.
[2018-03-18] MEDS: metFORMIN 500 MG TAB.XL.24H PO SCH ×2 (09:18→18:02)
[2018-03-18] MEDS: ENOXAPARIN 40 MG/0.4 ML SYRINGE SQ SCH (09:19)
[2018-03-18] MEDS: GABAPENTIN 300 MG CAPSULE PO SCH ×2 (09:19→12:56)
[2018-03-18] MEDS: SPIRONOLACTONE 25 MG TABLET PO SCH (09:19)
[2018-03-18] MEDS: morphine 15 MG TABLET PO SCH ×2 (09:19→21:14)
[2018-03-18] MEDS: LISINOPRIL 10 MG TABLET PO SCH (09:20)
[2018-03-18] MEDS: HYDROCHLOROTHIAZIDE 12.5 MG CAPSULE PO SCH (09:20)
[2018-03-18] MEDS: TAMSULOSIN 0.4 MG CAPSULE PO SCH (09:20)
[2018-03-18] MEDS: CITALOPRAM 20 MG TABLET PO SCH (09:20)
[2018-03-18] MEDS: ASPIRIN 81 MG TAB.CHEW PO SCH (09:20)
[2018-03-18] MEDS: FAMOTIDINE 20 MG TABLET PO SCH (09:21)
[2018-03-18] MEDS ORDERED: MAGNESIUM SULFATE 2 GM/50 ML BAG IV ONE ×2 (10:00→10:39)
[2018-03-18] MEDS: NOREPINEPHRINE BITARTRATE 8 MG in 0.9 % SODIUM CHLORIDE 242 ML IV SCH (10:00)
[2018-03-18] MEDS: OXYBUTYNIN CHLORIDE 5 MG TAB.XL.24H PO SCH (10:00)
--- NOTE | 2018-03-18 10:17 | Internal Med Progress Note ---
Medical - PN: Subj Patient information: Note initiated : 03/18/18 at 10:11 am Service Date, if different from initiated Date: [] Patient: Luis De Leon a 67 y/o M admitted on 03/15/18 for SOB 02 Sat Low 80's/ Pneumonia, Sepsis. Chief Complaint: [] Interval history: Mr. De Leon is a 67 year old M who presents to the emergency room with falls, N/ V and dyspnea since the day prior to admission. Patient has been ill with "bronchitis or pneumonia" for 2 weeks. Patient has had a reasonable appetite but decreased mobility and has had repeated falls without overt syncope. Patient has not complained about orthostasis. Patient has had progressive dyspnea nd productive cough. Patient has been on antibiotics including Z vandana. Patient was noted to be hypoxemic and repeatedly hypotensive in the ED and is seen and admitted with pneumonia and sepsis with shock. Patient alerts to voice but is confused. Spouse is present. Patient has received serial crystalloid boluses and antibiotics. Patient is seen in the ED. Discussed plans for ICU care with patient and spouse. Location-generalized, severity-severe, duration-weeks and assocaited symptoms-as above. 03/16- patient improving. Systolics improved from 80s to 130s. Vasopressors weaned off. Continue antibiotic coverage. White count 14.7. Potassium 5.6. Pyuria. On broad antibiotic coverage. Await culture sensitivities. MAXIMUM TEMPERATURE 102.2, complains of chronic back pain requiring MS Contin. at bedside -Responded nurse call due to patient being extremely agitated and pulling on IV lines in the setting of delirium. Patient was noted to be profusely bleeding around the left internal jugular central venous catheter insertion site which was pulled out by patient. Local pressure was applied around the IJ CVC insertion site and subsequently surgery was consulted. Pressure was applied for a period of 45 minutes. Patient was sedated with haloperidol, ketamine to counter agitation. was informed about patient status. Stat hemoglobin 11.5, stat INR 1.4, A PTT 38 03/17-patient had a much better night. Woke up alert oriented and following commands. No significant agitation and delirium. Clinical improvement noted. White count 14.7. Creatinine normalized from 2.2-1. Continue antibiotic coverage/physical therapy. Chronic pain in good control on home medications. Anticipate transfer to medical floor in 24 hours 03/18- patient more lucid and responsive. No overnight events. Abdominal pain resolved. Persistent hypotension/bradycardia down to 30s. Continue telemetry monitoring. Switch to oral steroids. DC oxybutynin. DC catheter, patient reviewed by urology, continue Flomax. Continue aggressive physical therapy. Possible transfer to medical floor later today. Anticipate SNF transfer. Case management to coordinate. White count down to 12.9. De-escalate antibiotics to Rocephin daily. Cultures negative so far - Constitutional Vitals: Vital Signs Temp Pulse Resp BP Pulse Ox 98 F 52 L 18 180/35 95 03/18/18 08:00 03/18/18 06:50 03/18/18 10:00 03/18/18 07:18 03/18/18 10:00 Period Temp Pulse Resp BP Sys/Shin Pulse Ox Last 24 Hr 98 F-99.0 F 36-76 11-26 129-180/35-143 91-98 Intake and Output 03/17/18 03/18/18 03/18/18 21:59 05:59 13:59 Intake Total 220 / 220 290 / 290 290 / 290 Output Total 300 / 300 650 / 650 425 / 425 Balance -80 / -80 -360 / -360 -135 / -135 Weight 230 lb 3.2 oz Intake & Output: Intake & Output 03/17/18 03/18/18 03/18/18 21:59 05:59 13:59 Intake Total 220 / 220 290 / 290 290 / 290 Output Total 300 / 300 650 / 650 425 / 425 Balance -80 / -80 -360 / -360 -135 / -135 Weight 230 lb 3.2 oz Intake: IV 100 / 100 50 / 50 50 / 50 Zosyn 3.375 gm In Dextrose 5% 100 / 100 50 / 50 50 / 50 in Water 50 ml @ 100 mls/hr IV Q6H [facility] Rx#:[id number] Oral 120 / 120 240 / 240 240 / 240 Output: Urine Catheter Amount 300 / 300 650 / 650 425 / 425 Other: Meal Dinner Breakfast Percent of Meal Consumed 25% 100% Feeding Ability Assist with Tray Set Up Independent Stool Size Large Stool Color Brown Stool Consistency Loose # Bowel Movements 1 1 # of times incontinent of 1 Bowels General appearance: no acute distress Exam: Alert and responding to verbal commands No telemetry events Minimal anxiety Nonlabored breathing Foleys draining clear urine-being discontinued Medical - PN: Obj Da - Labs CBC & Chem 7: 03/18/18 03:48 03/18/18 03:38 Labs: Abnormal Lab Results 03/18/18 03/18/18 03/17/18 03:48 03:38 03:42 WBC 12.9 H RBC 3.57 L Hgb 10.0 L Hct 30.5 L POC Hct RDW 16.0 H Gran % 90.2 H Lymph % (Auto) 6.5 L Gran # 11.7 H Lymph # (Auto) 0.8 L Seg Neutrophils % Lymphocytes % PT INR APTT Potassium POC Total CO2 POC BUN BUN 32 H 28 H Creatinine Glucose 328 H 273 H POC Glucose Calcium 8.0 L 7.9 L POC WB Ioniz Calcium Phosphorus 2.1 L 1.1 L Total Protein 5.7 L Albumin 3.0 L 3.0 L Triglycerides 163 H Urine RBC Urine WBC Hyaline Casts 03/17/18 03/16/18 03/16/18 03:42 21:55 18:39 WBC 14.7 H RBC 3.70 L Hgb 10.3 L Hct 31.6 L POC Hct 32.0 L RDW 16.0 H Gran % Lymph % (Auto) Gran # Lymph # (Auto) Seg Neutrophils % 84 H Lymphocytes % 8 L PT 17.7 H INR 1.4 H APTT 38 H Potassium POC Total CO2 POC BUN 31 H BUN Creatinine Glucose POC Glucose 301 H Calcium POC WB Ioniz Calcium 1.08 L Phosphorus Total Protein Albumin Triglycerides Urine RBC Urine WBC Hyaline Casts 03/16/18 03/16/18 03/16/18 18:39 18:39 03:45 WBC 14.7 H RBC 3.98 L Hgb 11.5 L 11.1 L Hct 35.9 L 34.1 L POC Hct 35.0 L RDW 16.2 H Gran % 92.1 H Lymph % (Auto) 5.2 L Gran # 13.5 H Lymph # (Auto) 0.8 L Seg Neutrophils % Lymphocytes % PT INR APTT Potassium POC Total CO2 21 L POC BUN 32 H BUN Creatinine Glucose POC Glucose 340 H Calcium POC WB Ioniz Calcium 1.06 L Phosphorus Total Protein Albumin Triglycerides Urine RBC Urine WBC Hyaline Casts 03/15/18 03/15/18 14:55 12:50 WBC RBC Hgb Hct POC Hct RDW Gran % Lymph % (Auto) Gran # Lymph # (Auto) Seg Neutrophils % Lymphocytes % PT INR APTT Potassium 5.6 H POC Total CO2 POC BUN BUN 39 H Creatinine 2.2 H Glucose 198 H POC Glucose Calcium 7.0 L POC WB Ioniz Calcium Phosphorus Total Protein Albumin Triglycerides Urine RBC 2 H Urine WBC 47 H Hyaline Casts 62 H Meds: Medications Acetaminophen (Tylenol) 650 mg NE Q4-6HP PRN PRN Reason: PAIN/FEVER > 101 Albuterol Sulfate (Ventolin) 2.5 mg NEB Q2HP PRN PRN Reason: Shortness Of Breath Aspirin (Aspirin) 81 mg PO DAILY [facility] Last Admin: 03/18/18 09:20 Dose: 81 mg Atorvastatin Calcium (Lipitor) 40 mg PO HS [facility] Last Admin: 03/17/18 20:36 Dose: 40 mg Belladonna Alkaloids/Opium (B & O) 60 mg NE Q4HP PRN PRN Reason: BLADDER SPASMS Last Admin: 03/16/18 12:07 Dose: 60 mg Citalopram Hydrobromide (Celexa) 40 mg PO DAILY [facility] Last Admin: 03/18/18 09:20 Dose: 40 mg Enoxaparin Sodium (Lovenox) 40 mg SQ DAILY [facility] Last Admin: 03/18/18 09:19 Dose: Not Given Famotidine (Pepcid) 20 mg PO DAILY [facility] Last Admin: 03/18/18 09:21 Dose: Not Given Fentanyl (Sublimaze) 0 mcg IV Q4HP PRN PRN Reason: PAIN LEVEL > 6 Last Admin: 03/18/18 07:06 Dose: 25 mcg Gabapentin (Neurontin) 300 mg PO BID@0800,1200 [facility] Last Admin: 03/18/18 09:19 Dose: 300 mg Hydrochlorothiazide (Oretic) 12.5 mg PO DAILY [facility] Last Admin: 03/18/18 09:20 Dose: 12.5 mg Hydromorphone HCl (Dilaudid) 0.5 mg IV Q4-6HP PRN PRN Reason: PAIN LEVEL > 6 Last Admin: 03/18/18 03:29 Dose: 0.5 mg Piperacillin Sod/Tazobactam (Sod 3.375 gm/ Dextrose) 50 mls @ 100 mls/hr IV Q6H [facility] Last Infusion: 03/18/18 06:11 Dose: Infused Norepinephrine Bitartrate 8 mg (/ Sodium Chloride) 250 mls @ 18.75 mls/hr IV Q14H JS; 10 MCG/MIN PRN Reason: Protocol Last Admin: 03/18/18 10:00 Dose: Not Given Sodium Chloride (Sodium Chloride 0.9%) 250 mls @ 20 mls/hr IV .[id number] [facility] Last Admin: 03/18/18 01:57 Dose: Not Given Sodium Chloride (Sodium Chloride 0.9%) 1,000 mls @ 40 mls/hr IV .Q24H [facility] Last Admin: 03/17/18 23:40 Dose: 40 mls/hr Magnesium Sulfate (Magnesium Sulfate) 2 gm in 50 mls @ 50 mls/hr IV ONCE ONE Stop: 03/18/18 10:59 Lidocaine HCl (Lidocaine 2% Uro-Jet) 10 ml UR Q6HP PRN PRN Reason: PAINFUL URINATION Lisinopril (Zestril) 10 mg PO DAILY [facility] Last Admin: 03/18/18 09:20 Dose: 10 mg Metformin HCl (Glucophage) 1,000 mg PO BIDCC [facility] Last Admin: 03/18/18 09:18 Dose: 1,000 mg Methylprednisolone Sodium Succinate (Solu-Medrol) 40 mg IV Q6 [facility] Last Admin: 03/18/18 05:40 Dose: 40 mg Morphine Sulfate (Ms Contin) 90 mg PO Q12H [facility] Last Admin: 03/18/18 01:56 Dose: Not Given Morphine Sulfate (Morphine) 30 mg PO BID [facility] Last Admin: 03/18/18 09:19 Dose: 30 mg Ondansetron HCl (Zofran) 4 mg IV Q4-6HP PRN PRN Reason: Nausea And Vomiting Last Admin: 03/16/18 12:32 Dose: 4 mg Oxybutynin Chloride (Ditropan Xl) 15 mg PO DAILY [facility] Last Admin: 03/18/18 10:00 Dose: Not Given Pantoprazole Sodium (Protonix) 40 mg IV BIDAC [facility] Last Admin: 03/18/18 07:05 Dose: 40 mg Phenazopyridine HCl (Pyridium) 200 mg PO Q6HP PRN PRN Reason: PAINFUL URINATION Sodium Chloride (Saline Flush) 10 ml IV Q8 [facility] Last Admin: 03/18/18 09:20 Dose: 10 ml Sodium Chloride (Saline Flush) 10 ml IV Q12 [facility] Last Admin: 03/18/18 09:21 Dose: 10 ml Spironolactone (Aldactone) 25 mg PO DAILY [facility] Last Admin: 03/18/18 09:19 Dose: 25 mg Tamsulosin HCl (Flomax) 0.4 mg PO DAILY [facility] Last Admin: 03/18/18 09:20 Dose: 0.4 mg Medical - PN: A/P - Time Spent With Patient Total time spent is greater than 50% in coordination of care (as documented) at patient's floor/unit and/or counseling patient: 25 - 35 minutes - Narrative A/P Narrative: * Right-sided pneumonia- clinical improvement noted -de-escalate antibiotics to Rocephin. Day 01/30 * Septic shock secondary above - clinically resolved. Off pressors. White count downtrending 14.7->12 * Acute change in mental status secondary to Agitated delirium-Clinically resolved. Lucid and alert * Diarrhea secondary to antibiotics-check C. difficile * Intermittent bradycardia- on telemetry monitoring. Asymptomatic. * Complicated UTI-on antibiotic coverage. Negative cultures * Acute renal failure resolved. Creatinine down from 2.2-1 * Hyperlipidemia on statin * Urinary retention-Urology recommends discontinuing Foleys catheter. Continue Flomax * History of CAD on aspirin and statin * Anxiety disorder continue citalopram * Chronic pain on MS Contin/ as needed IV Dilaudid for breakthrough * History of hypertension -on home meds including spironolactone/hydrocodone thiazide/lisinopril * Neuropathy on gabapentin * DVT prophylaxis on enoxaparin Plan * De-escalate antibiotics Rocephin * Switch to oral prednisone * Check C. difficile * Transfer to medical floor * DC Milner's catheter * Consistent carbohydrate diet * pre-existing medical condition management as above * Continue aggressive Physical therapy * Case management to arrange transfer to SNF for post hospital additional rehabilitation Medical - PN: Qual - VTE Deep Vein Thrombosis/Pulmonary Embolism Present on Admission: No
[2018-03-18] MEDS ORDERED: cefTRIAXone 2 GM VIAL IV SCH (10:30)
[2018-03-18] MEDS ORDERED: PHENAZOPYRIDINE 200 MG TABLET PO PRN (10:39)
[2018-03-18] MEDS ORDERED: ALBUTEROL SULFATE 2.5 MG/3 ML NEBULIZER NEB PRN (10:39)
[2018-03-18] MEDS ORDERED: ONDANSETRON 4 MG/2 ML VIAL IV PRN (10:39)
[2018-03-18] MEDS ORDERED: ACETAMINOPHEN 650 MG SUPP.RECT PR PRN (10:39)
[2018-03-18] MEDS ORDERED: LIDOCAINE 2% URO-JET 5 ML JEL.PF.APP UR PRN (10:39)
[2018-03-18] MEDS: cefTRIAXone 2 GM VIAL IV SCH (12:55)
[2018-03-18] MEDS: ACETAMINOPHEN 325 MG TABLET PO PRN ×2 (15:00→19:25)
[2018-03-18] MEDS ORDERED: ATORVASTATIN 20 MG TABLET PO SCH (21:00)
[2018-03-19] MEDS: morphine 30 MG TAB.SR.12H PO SCH (01:36)
[2018-03-19] MEDS: 0.9 % SODIUM CHLORIDE 10 ML SYRINGE IV SCH ×2 (05:30→10:14)
[2018-03-19 06:06] LABS: Basophils # (Auto) 0 K/mcL (0.0-0.3); Basophils % (Auto) 0.1 % (0.0-2.0); Eosinophils # (Auto) 0.1 K/mcL (0.0-0.7); Eosinophils % (Auto) 0.6 % (0.0-7.0); Granulocytes % (Auto) 77.7 % (38.0-78.0); Lymphocytes # (Auto) 2.2 K/mcL (1.5-4.8); Lymphocytes % (Auto) 16.1 % (15.5-49.0); Mean Corpuscular HGB Conc 32.9 g/dL (31.0-36.0); Monocytes # (Auto) 0.7 K/mcL (0.1-0.9); Monocytes % (Auto) 5.5 % (1.0-12.0); Platelet Count 212 K/mcL (140-440); RBC 3.66 M/mcL (4.50-5.90); Red Cell Distribution Width 15.9 % (11.5-14.5)
[2018-03-19 06:13] LABS: ALT/SGPT 17 U/l (0-40); Albumin 2.8 gm/dL (3.2-5.2); Albumin/Globulin Ratio 1.1 (1.0-2.3); Alkaline Phosphatase 60 U/L (39-117); Bilirubin,Direct < 0.2 mg/dL (0.0-0.3); Blood Urea Nitrogen 28 mg/dl (8-23); Gamma Glutamyl Transpeptidase 14 U/L (8-61); Uric Acid 5.9 mg/dL (2.5-8.0)
--- NOTE | 2018-03-19 07:20 | Discharge Summary ---
Medical - DS: Prov Patient information: Note initiated : 03/19/18 at 7:17 am Service Date, if different from initiated Date: [] Patient: Luis De Leon 67 y/o M admitted on 03/15/18 for SOB 02 Sat Low 80's/ Pneumonia, Sepsis. Chief Complaint: [] Date of admission: 03/15/18 10:59 Discharge date: 03/19/18 Primary care physician: Cesar Llanos Consults: 03/15/18 09:01 Consult to Physician [CONS] Stat Comment: Consulting Provider: Stu Abbasi Reason For Exam: Physician to Consult 03/16/18 19:41 Consult to Physician [CONS] Routine Comment: Consulting Provider: Dania Warner Reason For Exam: Physician to Consult Medical - DS: Meds - Discharge Medications Prescriptions: Cefdinir 300 mg PO BID #6 cap predniSONE [Prednisone] 40 mg PO QAC #4 tab Tamsulosin [Flomax] 0.4 mg PO DAILY #30 cap Active and Home Medications: Home Medications Aspirin 81 mg PO DAILY 06/06/17 [History Confirmed 03/15/18 Last Taken Unknown] Citalopram [Celexa] 40 mg PO DAILY 06/06/17 [History Confirmed 03/15/18 Last Taken Unknown] Famotidine [Pepcid] 20 mg PO DAILY 06/06/17 [History Confirmed 03/15/18 Last Taken Unknown] Multivit,Ther Iron,Ca,FA & Min [Multivitamin W/Minerals] 1 tab PO DAILY [History Confirmed 03/15/18 Last Taken Unknown] Omeprazole [Prilosec] 40 mg PO ACB 06/06/17 [History Confirmed 03/15/18 Last Taken Unknown] Spironolactone [Aldactone] 25 mg PO DAILY 06/06/17 [History Confirmed 03/15/18 Last Taken Unknown] Tamsulosin [Flomax] 0.4 mg PO DAILY 06/06/17 [History Confirmed 03/15/18 Last Taken Unknown] metFORMIN [Glucophage] 1,000 mg PO BIDCC 06/06/17 [History Confirmed 03/15/18 Last Taken Unknown] morphine 30 mg PO BID 06/06/17 [History Confirmed 03/15/18 Last Taken Unknown] morphine [Ms Contin] 100 mg PO BID 08/12/17 [History Confirmed 03/15/18 Last Taken Unknown] Ascorbic Acid [Vitamin C] 500 mg PO DAILY 03/15/18 [History Confirmed 03/15/18 Last Taken Unknown] Atorvastatin [Lipitor] 40 mg PO HS 03/15/18 [History Confirmed 03/15/18 Last Taken Unknown] Gabapentin [Neurontin] 300 mg PO BID@0800,1200 03/15/18 [History Confirmed 03/15 Last Taken Unknown] Gabapentin [Neurontin] 600 mg PO HS 03/15/18 [History Confirmed 03/15/18 Last Taken Unknown] Lisinopril/Hydrochlorothiazide [Zestoretic 10-12.5 mg Tablet] 1 tab PO DAILY [History Confirmed 03/15/18 Last Taken Unknown] Cefdinir 300 mg PO BID #6 cap 03/19/18 [Rx Last Taken Unknown] Tamsulosin [Flomax] 0.4 mg PO DAILY #30 cap 03/19/18 [Rx Last Taken Unknown] predniSONE [Prednisone] 40 mg PO [facility] #4 tab 03/19/18 [Rx Last Taken Unknown] Medical - DS: Hosp Hospital course: Discharge diagnoses * Right-sided pneumonia- clinical improvement noted -continue additional 3 days oral cephalosporin. * Septic shock secondary above - clinically resolved. Off pressors. * Acute change in mental status secondary delerium- clinically resolved * Diarrhea secondary to likely antibiotic associated. C. difficile negative.Improved * Intermittent bradycardia-resolved. * Complicated UTI -clinically resolved on antibiotics. Negative cultures. * Acute renal failure resolved. Creatinine down from 2.2-0.8 * Hyperlipidemia on statin * Urinary retention-Urology recommends discontinuing Foleys catheter. Continue Flomax . Follow-up with urology as outpatient * History of CAD on aspirin and statin * Anxiety disorder continue citalopram * Chronic pain on MS Contin/ as needed IV Dilaudid for breakthrough * History of hypertension -on home meds including spironolactone/hydrocodone thiazide/lisinopril * Neuropathy on gabapentin Brief hospital course Mr. De Leon is a 67 year old M who presents to the emergency room with falls, N/ V and dyspnea since the day prior to admission. Patient has been ill with "bronchitis or pneumonia" for 2 weeks. Patient has had a reasonable appetite but decreased mobility and has had repeated falls without overt syncope. Patient has not complained about orthostasis. Patient has had progressive dyspnea nd productive cough. Patient has been on antibiotics including Z vandana. Patient was noted to be hypoxemic and repeatedly hypotensive in the ED and is seen and admitted with pneumonia and sepsis with shock. Patient alerts to voice but is confused. Spouse is present. Patient has received serial crystalloid boluses and antibiotics. Patient is seen in the ED. Discussed plans for ICU care with patient and spouse. Location-generalized, severity-severe, duration-weeks and assocaited symptoms-as above. 03/16- patient improving. Systolics improved from 80s to 130s. Vasopressors weaned off. Continue antibiotic coverage. White count 14.7. Potassium 5.6. Pyuria. On broad antibiotic coverage. Await culture sensitivities. MAXIMUM TEMPERATURE 102.2, complains of chronic back pain requiring MS Contin. at bedside -Responded nurse call due to patient being extremely agitated and pulling on IV lines in the setting of delirium. Patient was noted to be profusely bleeding around the left internal jugular central venous catheter insertion site which was pulled out by patient. Local pressure was applied around the IJ CVC insertion site and subsequently surgery was consulted. Pressure was applied for a period of 45 minutes. Patient was sedated with haloperidol, ketamine to counter agitation. was informed about patient status. Stat hemoglobin 11.5, stat INR 1.4, A PTT 38 03/17-patient had a much better night. Woke up alert oriented and following commands. No significant agitation and delirium. Clinical improvement noted. White count 14.7. Creatinine normalized from 2.2-1. Continue antibiotic coverage/physical therapy. Chronic pain in good control on home medications. Anticipate transfer to medical floor in 24 hours 03/18- patient more lucid and responsive. No overnight events. Abdominal pain resolved. Persistent hypotension/bradycardia down to 30s. Continue telemetry monitoring. Switch to oral steroids. DC oxybutynin. DC catheter, patient reviewed by urology, continue Flomax. Continue aggressive physical therapy. Possible transfer to medical floor later today. Anticipate SNF transfer. Case management to coordinate. White count down to 12.9. De-escalate antibiotics to Rocephin daily. Cultures negative so far 03/19-patient at baseline. Sats on room air. No anxiety or agitation. Ambulating. Tolerating physical therapy and diet. Discharging home health physical therapy. Continue antibiotics for additional 3 days. Follow-up with urology as outpatient in 1 week. Continue Flomax and medications as instructed. Renal function normalizes creatinine 0.8. Discharge diagnosis: . - Time Spent with Patient Total time spent providing and/or coordinating discharge services: Greater than 30 minutes Medical - DS: Exam - Constitutional Vitals: Vital Signs Temp Pulse Resp BP Pulse Ox 03/19/18 04:05 97.8 F 49 L 18 148/50 96 03/19/18 01:34 173/66 03/19/18 01:32 97.6 F 50 L 18 94 03/18/18 20:54 60 18 98 03/18/18 20:40 98.7 F 55 L 16 183/67 95 03/18/18 20:39 52 L 94 03/18/18 16:40 98.6 F 18 141/42 98 03/18/18 12:00 20 03/18/18 11:36 99.0 F H 42 L 18 176/64 95 03/18/18 11:00 22 03/18/18 10:00 18 95 03/18/18 09:01 25 H 03/18/18 08:00 98 F 17 95 03/18/18 07:18 13 180/35 Intake and Output 03/18/18 03/19/18 03/19/18 21:59 05:59 13:59 Intake Total 550 / 550 260 / 260 Output Total 300 / 300 1000 / 1000 Balance 250 / 250 -740 / -740 Intake: IV 50 / 50 Oral 100 / 100 260 / 260 GI Tube Flush 400 / 400 Output: Void Amount 1000 / 1000 Urine/Stool Mix 300 / 300 Other: Meal Dinner Percent of Meal Consumed 100% Stool Size Smear Stool Color Brown Stool Consistency Loose # Voids 1 Weight 226 lb 9.6 oz Medical - DS: Data Labs on day of discharge: Labs from last 24 hours 03/19/18 03/19/18 03:46 03:46 WBC 13.5 H RBC 3.66 L Hgb 10.2 L Hct 31.1 L MCV 85.0 MCH 28.0 MCHC 32.9 RDW 15.9 H Plt Count 212 MPV 7.9 Gran % 77.7 Lymph % (Auto) 16.1 [place] % (Auto) 5.5 Eos % (Auto) 0.6 Baso % (Auto) 0.1 Gran # 10.5 H Lymph # (Auto) 2.2 [place] # (Auto) 0.7 Eos # (Auto) 0.1 Baso # (Auto) 0 Sodium 140 Potassium 3.9 Chloride 105 Carbon Dioxide 24 Anion Gap 11.0 BUN 28 H Creatinine 0.8 GFR Calculation 92 Glucose 217 H Uric Acid 5.9 Calcium 7.9 L Phosphorus 2.0 L Magnesium 1.4 L Total Bilirubin 0.3 Direct Bilirubin < 0.2 GGT 14 AST 16 ALT 17 Alkaline Phosphatase 60 Lactate Dehydrogenase 247 Total Protein 5.4 L Albumin 2.8 L Globulin 2.6 Albumin/Globulin Ratio 1.1 Triglycerides 174 H Preliminary micro results at discharge 03/15/18 08:05 Blood Culture - Preliminary Blood 03/15/18 08:10 Blood Culture - Preliminary Blood Medical - DS: A/P - Patient/Caregiver Discharge Instructions Activity: increase activity as tolerated Diet: Consistent Carbohydrate Additional Instructions: Follow-up PCP in 5 days--See scheduled appointment Follow-up with urology dr menchaca in 1 week as outpatient--See scheduled appoinment I recommend primary care physician to check CBC BMP UA as a posthospital follow- up in 1 week. Antibiotics for additional 3 days Continue aggressive bowel regimen to prevent constipation Continue fall precautions Continue home health PT OT evaluation and treatment All meals on chair sitting upright at 90 degrees to prevent aspiration Return to ER if worsening fever chills shortness of breath, diarrhea, bleeding Review risk and side effect profile of medications including antibiotics. Side effect may include mild to severe reaction including rash, diarrhea, cdiff and even which can be Continue diet and activity as advised Portions of this chart may have been created with [employer] voice recognition software. Occasional wrong-word or ?sound-like? substitutions may have occurred due to the inherent limitations of voice recognition software. Please read the chart carefully and recognize, using context, where the substitutions have occurred. CC- PCP Prescriptions: Cefdinir 300 mg PO BID #6 cap predniSONE [Prednisone] 40 mg PO [facility] #4 tab Tamsulosin [Flomax] 0.4 mg PO DAILY #30 cap - Follow up Plan Follow up with: Cesar Llanos DO [Primary Care Provider] - 03/31/18 2:30 pm Quinton Menchaca MD [Physician] - 03/30/18 2:30 pm Disposition: Home Health Service Prognosis: Critical Rehab Potential: Fair I certify that the patient requires SNF services: No Overall status at discharge: patient is progressing back to baseline Medical - DS: Qual - VTE Deep Vein Thrombosis/Pulmonary Embolism Present on Admission: No
[2018-03-19] MEDS ORDERED: PANTOPRAZOLE 40 MG TABLET PO SCH (07:30)
[2018-03-19] MEDS ORDERED: MAGNESIUM SULFATE 2 GM/50 ML BAG IV ONE (07:53)
[2018-03-19] MEDS ORDERED: predniSONE 20 MG TABLET PO SCH ×2 (08:00)
[2018-03-19] MEDS: ACETAMINOPHEN 325 MG TABLET PO PRN (08:01)
[2018-03-19] MEDS: metFORMIN 500 MG TAB.XL.24H PO SCH (08:49)
[2018-03-19] MEDS: morphine 15 MG TABLET PO SCH (08:54)
[2018-03-19] MEDS: GABAPENTIN 300 MG CAPSULE PO SCH (08:55)
[2018-03-19] MEDS ORDERED: HYDROCHLOROTHIAZIDE 12.5 MG CAPSULE PO SCH (09:00)
[2018-03-19] MEDS ORDERED: SPIRONOLACTONE 25 MG TABLET PO SCH (09:00)
[2018-03-19] MEDS ORDERED: ASPIRIN 81 MG TAB.CHEW PO SCH (09:00)
[2018-03-19] MEDS ORDERED: TAMSULOSIN 0.4 MG CAPSULE PO SCH (09:00)
[2018-03-19] MEDS ORDERED: CITALOPRAM 20 MG TABLET PO SCH (09:00)
[2018-03-19] MEDS ORDERED: FAMOTIDINE 20 MG TABLET PO SCH (09:00)
[2018-03-19] MEDS ORDERED: ENOXAPARIN 40 MG/0.4 ML SYRINGE SQ SCH (09:00)
[2018-03-19] MEDS ORDERED: LISINOPRIL 10 MG TABLET PO SCH (09:00)
[2018-03-19] MEDS: cefTRIAXone 2 GM VIAL IV SCH (10:14)
== END 2018-03-19 11:50 | disposition home health service (06) | DRG 871 ==
LOC: ED 07:53 → ICU 10:48
PROVIDERS: ADMIT Internal Medicine; ATTEND Internal Medicine